=== PATIENT | female | born 1960 | race Caucasian/White ===

== ENCOUNTER 2021-03-26 20:59 | Emergency (ER) | payer OTHER, SELFPAY ==
[2021-03-26 21:59] VITALS: BP 187/68; PULSE 89; RESP 16; TEMP 37.3; O2SAT 97; BMI 42.0
--- NOTE | 2021-03-27 01:03 | ED.HEATRA ---
HPI - Head Injury General Chief complaint: Head Injury Stated complaint: Fall Time Seen by Provider: 03/27/21 00:44 Source: patient Mode of arrival: ambulatory History of Present Illness HPI Narrative: Patient states that tipped over in her chair striking her head against the wall but denies any LOC or use of blood thinners. She denies any numbness or tingling in bilateral upper extremities denies any dizziness or headache and states that she is having some left-sided trapezius pain. Treated with combination analgesics with good resolution of pain and will be discharged. Related Data Allergies Allergy/AdvReac Type Severity Reaction Status Date / Time Penicillins [PCN] Allergy Hives Verified 03/26/21 21:56 codeine AdvReac Nausea Verified 03/26/21 21:56 metformin AdvReac Unknown Verified 03/26/21 21:56 [facility] Past Medical History Medical History (Updated 03/27/21 @ 02:11 by Amanda Pugh MD) Diabetes Renal insufficiency Social History Social History Advance Directives: No Advance Directives Information Provided: Yes Physical Exam Vital Signs: Vital Signs: Last Vital Signs Temp 99.2 F 03/26/21 21:59 Pulse 89 03/26/21 21:59 Resp 16 03/26/21 21:59 BP 187/68 H 03/26/21 21:59 Pulse Ox 97 03/26/21 21:59 Body Mass Index 42.0 Discharge Plan Discharge Clinical Impression: Fall Patient Disposition: Home, Self-Care Instructions: Fall Prevention (ED) Additional Instructions: 1. Resume all home medications as prescribed. 2. Tylenol 1000 mg, orally, every 6 hours as needed for pain control. Do not exceed 4000 mg within 24 hours. This medication may be taken with your at home prescription of ibuprofen 800 mg. 3. Lidocaine patch, these are available in every [facility] and should be apply to area of maximal pain as directed on the outside packaging. Do not hesitate to return to the emergency room for any acute worsening of symptoms. Referrals: Kizzy Lizarraga MD [Primary Care Provider] - 2 days
[2021-03-27] MEDS: Acetaminophen 325 MG TABLET 975 MG PO (01:16)
[2021-03-27] MEDS: Ibuprofen 400 MG TABLET PO (01:16)
[2021-03-27] MEDS: Lidocaine 4 % Patch ADH..PATCH 1 PATCH TRANSDERMA (01:16)
== END 2021-03-27 02:22 | disposition home or self-care (01) ==
PROVIDERS: Emergency Provider Student in an Organized Health Care Education/Training Program; PCP Family Medicine
DX: S09.90XA Unspecified injury of head, initial encounter (principal); G44.309 Post-traumatic headache, unspecified, not intractable; W01.10XA Fall on same level from slipping, tripping and stumbling with subsequent striking against unspecified object, initial encounter; Y93.9 Activity, unspecified; Y92.009 Unspecified place in unspecified non-institutional (private) residence as the place of occurrence of the external cause; Y99.9 Unspecified external cause status
CPT/HCPCS: 99283

== ENCOUNTER 2022-12-07 | Outpatient (REF) | payer OTHER, SELFPAY ==
--- NOTE | ~2022-12-07 | CT_ITS ---
EXAMINATION: CT ABDOMEN AND PELVIS WITHOUT CONTRAST CLINICAL INFORMATION: Calculus of kidney. Pain right side COMPARISON: None TECHNIQUE: Multidetector volumetric imaging was performed from the superior aspect of the liver through the pubic symphysis. Sagittal and coronal reformatted images were obtained on the technologist's workstation. This CT examination was performed using dose optimization techniques as appropriate, variously including the following: *Automated exposure control *Adjustment of mA and/or kV according to patient size (this includes techniques or standardized protocols for targeted exams where dose is matched to indication/reason for exam; i.e. extremities or head) *Use of iterative reconstruction technique DLP: 734 mGy-cm FINDINGS: LUNG BASES: The lung bases are clear. Heart size is normal. LIVER, GALLBLADDER, AND BILIARY TREE: The liver is normal in size, shape, and attenuation. No focal hepatic lesion or biliary ductal dilatation is present. The gallbladder is unremarkable with no evidence of radiopaque gallstones, gallbladder wall thickening, or obvious pericholecystic inflammatory changes. PANCREAS: Unremarkable. SPLEEN: Unremarkable. ADRENAL GLANDS: There is a 2.3 by by 1.6 x 2.1 cm right adrenal lesion measuring 50 Hounsfield units not a benign adenoma. The left adrenal gland is slightly enlarged.. KIDNEYS AND URETERS: There is 1.1 cm right UPJ obstructive radiopaque calculi with moderate right hydronephrosis and perinephric stranding. No additional radiopaque calculi seen. The right kidneys enlarged compared to left and measures 13.7 cm in length left kidney measures 13 cm in length. BLADDER: The bladder is nondistended. GASTROINTESTINAL TRACT: Scattered stool, diverticuli and gas is seen in the colon without significant distention. The small bowel loops are normal caliber. Appendix is normal caliber. No inflammatory process seen in the abdomen. ABDOMINAL WALL: No significant hernia is appreciated. LYMPH NODES: Normal. VASCULAR: There is atherosclerotic calcification of abdominal aorta without aneurysmal dilatation. PELVIC VISCERA: The uterus is anteverted and appears unremarkable. There are scattered phleboliths seen in the pelvis. OSSEOUS STRUCTURES: Unremarkable. CT/CT abdomen pelvis wo IV con IMPRESSION: 1. 1.1 cm right UPJ radiopaque calculi with moderate right hydronephrosis and perinephric stranding. 2. Mild constipation. Colonic diverticulosis without diverticulitis. 3. There is a 2.3 x1.6 x 2.1 cm right adrenal lesion measuring 15 Hounsfield units not a benign adenoma.. Recommend CT adrenal protocol for further evaluation Fleischner guidelines were followed.
== END 2022-12-07 00:01 ==
LOC: HO.CT
PROVIDERS: PCP Family Medicine; Visit Provider Family Medicine
DX: N20.0 Calculus of kidney (principal)
CPT/HCPCS: 74176

== ENCOUNTER 2022-12-08 19:40 | Inpatient (IN) | payer OTHER, SELFPAY ==
--- NOTE | ~2022-12-08 | FL_ITS ---
EXAMINATION: XR FLUOROSCOPY WITH IMAGES CLINICAL INFORMATION: Cystoscopy and stent placement COMPARISON: CT abdomen pelvis on 12/07/2022 TECHNIQUE: Fluoroscopy Supervised By: Dr. Wale Gabriel. Fluoroscopy Time: 55 seconds. Cumulative Dose: 40.31 mGy. Images: 1. FINDINGS: Fluoroscopy performed during right retrograde ureterogram and stent placement FL/FL guidance in OR IMPRESSION: Fluoroscopy performed by the urology department. Please see operative report for additional information.
--- NOTE | ~2022-12-08 | XR_ITS ---
EXAMINATION: XR CHEST CLINICAL INFORMATION: Chest pain COMPARISON: None TECHNIQUE: Frontal view of the chest was obtained. FINDINGS: No significant abnormality is noted involving the heart, lungs, mediastinum, bony thorax or soft tissues. XR/XR chest 1V IMPRESSION: Unremarkable examination.
[2022-12-08 19:58] VITALS: BP 149/60; PULSE 106; RESP 20; TEMP 36.8; O2SAT 93; BMI 40.3
[2022-12-08 21:02] LABS: Basophils Percent Auto 0.2 % (0-2); Hematocrit 39.9 % (37.0-47.0); Imm Gran Abs Auto 0.15 X10*3/uL (0.00-0.03); Imm Gran Pct Auto 0.7 % (0.0-0.4); Lymphocytes Absolute Auto 0.5 X10*3/uL (1.2-4.9); Lymphocytes Percent Auto 2.2 % (20-40); MANUAL DIFF FLAG SCAN; Mean Corpuscular HGB Conc 32.6 g/dl (31.0-35.0); Mean Corpuscular Hemoglobin 27.4 pg (27.0-33.0); Mean Corpuscular Volume 84.2 fL (80.0-98.0); Mean Platelet Volume 9.1 fL (9.4-12.3); Monocytes Absolute Auto 1.3 X10*3/uL (0.1-1.2); Monocytes Percent Auto 6.2 % (2-11); Neutrophils Absolute Auto 19.4 x10*3/uL (2.0-8.3); Neutrophils Percent Auto 90.7 % (45-73); Platelet Count 231 X10*3/uL (160-400); Red Blood Count 4.74 X10*6/uL (4.20-5.50); Red Cell Distribution Width 13.4 % (11.0-16.0); SCAN SMEAR FLAG 1; White Blood Count 21.4 X10*3/uL (4.8-10.8)
[2022-12-08 21:24] LABS: SLIDE REVIEW VERIFIED
[2022-12-08 21:45] LABS: Anion Gap 15 (12-20); Blood Urea Nitrogen 33 mg/dL (9-16); Calcium 8.9 mg/dL (8.4-10.2); Carbon Dioxide 23 mmol/L (22-29); Chloride 102 mmol/L (96-108); Creatinine Clr Calc Pharmacy 58.8; Estimated Glomerular Filt Rate 48; Glucose Random 236 mg/dL (60-115); Potassium 3.6 mmol/L (3.3-5.1); Sodium 136 mmol/L (135-145)
[2022-12-08 22:00] VITALS: O2SAT 89
[2022-12-08 22:44] LABS: Appearance Urine Turbid; Color Urine Yellow; Glucose Urine UA 100 mg/dL (Negative); Leukocyte Esterase Urine Large (3+) (Negative); Nitrite Urine Negative (Negative); PH 6.5 (5.0-9.0); UMIC TRIGGER UACC YES; Urine Blood Moderate (2+) (Negative); Urine Ketones 40 mg/dL (Negative); Urine Protein 300 (3+) mg/dL (Neg-Trace)
--- NOTE | 2022-12-08 22:44 | PC.NURSE ---
pt c/o n/v and abd pain pt states she has been sick since Monday She went to the Dr yesterday and got a CT, but does not know what the results are CT result is in system pt states she is ED today because she can't take it anymore IV line 22g on L forearem est pt has vomited since arriving to room pt tearful, rates pain 08/15
--- NOTE | 2022-12-08 22:46 | PC.NURSE ---
pt has male visitor at bedside
--- NOTE | 2022-12-08 22:49 | ED_ITS ---
HPI - Abdominal Pain General Chief Complaint: Abdominal Pain Stated Complaint: kidney stone Time Seen by Provider: 12/08/22 22:37 Source: patient Mode of arrival: ambulatory Limitations: no limitations History of Present Illness HPI narrative: rt flank pain,vomiting ,unable to keep anything down MD elicited complaint: flank pain (rt) Pertinent past history: other (kidney stone) Onset (ago): day(s) (2) Pain Consistency: constant Location: R flank Severity: moderate Radiation: none Related Data Allergies Allergy/AdvReac Type Severity Reaction Status Date / Time Penicillins [PCN] Allergy Hives Verified 12/08/22 20:03 codeine AdvReac Nausea Verified 12/08/22 20:03 metformin AdvReac Unknown Verified 12/08/22 20:03 Review of Systems Constitutional: Reports no additional constitutional complaints Cardiovascular: Reports no additional cardiovascular complaints COUNT INCLUDES [facility] Past Medical History COUNT INCLUDES THE [facility] Narrative: kidney stone Medical History (Updated 12/08/22 @ 23:43 by Jenise Bolaños MD) Diabetes Renal insufficiency Social History Social History Advance Directives: No Advance Directives Information Provided: No Physical Exam ED Vital Signs: Vital Signs - 24 hr 12/08/22 19:58 12/08/22 22:00 Temperature 98.3 F Pulse Rate 106 H Respiratory Rate 20 Blood Pressure 149/60 H Pulse Oximetry 93 89 L Oxygen Delivery Method Room Air Room Air BMI result Body Mass Index 40.3 Const General: cooperative Nutritional Appearance: average body habitus Orientation/consciousness: patient oriented x3 Limitations: no limitations HENMT Head: Yes normal to inspection General nose exam: Normal external nose present Face and sinus: Yes normal facial exam Throat: Yes posterior oropharynx normal Neck Neck: Yes normal visual inspection and Yes full ROM Chest Chest palpation & inspection: normal inspection of the chest Resp Effort & Inspection: normal respiratory effort Auscultation: clear to auscultation bilaterally Cardio Rate: regular rate Rhythm: regular rhythm GI Inspection: Yes normal to inspection Palpation (GI): Soft to palpation and Tenderness to palpation present (GI) (rt flank tenderness) Auscultation: normal bowel sounds Skin General skin exam: no rashes or lesions noted Neuro General: patient oriented x3 Extrem General: Yes normal to inspection, Yes full ROM and Yes capillary refill normal Course Reevaluation(s) Reevaluation #1: doing better remain afebrile and normotensive ,I spoke with Dr Ortiz Urologist,discussed ct via tiger text Time: 23:45 Medical Decision Making Medical Decision Making [facility] Narrative: Presented with rt flank pain,ct done Yesterday large stone,Rt urether Differential Diagnosis Differential Diagnoses: The differential diagnosis associated with the presentation includes kidney stone,rt flank pain Admission/Observation Consideration of admission/observation: Escalation of care including admission/observation considered Consult Healthcare Provider Management of the patient was discussed with: Hospitalist and Shoe Cutter spoke with Dr ortiz and Dr Bolaños Lab Data [facility] Lab Attestation statement: I reviewed the patient's lab results. 12/08/22 20:56 12/08/22 20:56 Labs: Lab Results 12/08/22 12/08/22 12/08/22 Range/Units 20:56 20:56 22:27 WBC 21.4 H (4.8-10.8) X10*3/uL RBC 4.74 (4.20-5.50) X10*6/uL Hgb 13.0 (12.0-16.0) g/dl Hct 39.9 (37.0-47.0) % MCV 84.2 (80.0-98.0) fL MCH 27.4 (27.0-33.0) pg MCHC 32.6 (31.0-35.0) g/dl RDW 13.4 (11.0-16.0) % Plt Count 231 (160-400) X10*3/uL MPV 9.1 L (9.4-12.3) fL Immature Gran % (Auto) 0.7 H (0.0-0.4) % Neut % (Auto) 90.7 H (45-73) % Lymph % (Auto) 2.2 L (20-40) % [place] % (Auto) 6.2 (2-11) % Eos % (Auto) 0.0 (0-4) % Baso % (Auto) 0.2 (0-2) % Lymph # (Auto) 0.5 L (1.2-4.9) X10*3/uL [place] # (Auto) 1.3 H (0.1-1.2) X10*3/uL Eos # (Auto) 0.0 (0.0-0.4) X10*3/uL Baso # (Auto) 0.0 (0.0-0.2) X10*3/uL Abs Immat Gran (auto) 0.15 H (0.00-0.03) X10*3/uL Absolute Neuts (auto) 19.4 H (2.0-8.3) x10*3/uL Absolute Nucleated RBC 0.000 (0.0-0.012) X10*3/uL Nucleated RBC % (auto) 0.0 (0.0-0.2) /100WBC Smear Tech's Comments VERIFIED Sodium 136 (135-145) mmol/L Potassium 3.6 (3.3-5.1) mmol/L Chloride 102 (96-108) mmol/L Carbon Dioxide 23 (22-29) mmol/L Anion Gap 15 (12-20) BUN 33 H (9-16) mg/dL Creatinine 1.15 (0.5-1.4) mg/dL Estim Creat Clear Calc 58.8 Estimated GFR 48 Random Glucose 236 H (60-115) mg/dL Calcium 8.9 (8.4-10.2) mg/dL Urine Color Yellow Urine Appearance Turbid Urine pH 6.5 (5.0-9.0) Ur Specific [place] 1.020 (1.005-1.025) Urine Protein 300 (3+) H (Neg-Trace) mg/dL Urine Glucose (UA) 100 H (Negative) mg/dL Urine Ketones 40 (Negative) mg/dL Urine Blood Moderate (2+) H (Negative) Urine Nitrite Negative (Negative) Ur Leukocyte Esterase Large (3+) H (Negative) Urine RBC 11-20 H (0-2) /HPF Urine WBC >50 H (0-5) /HPF Ur Squamous Epith Cells 3-5 (0-2) /HPF Urine Bacteria 4+ (None Seen) Hyaline Casts 3-5 (0-2) /LPF Radiology Impression Discussion of test interpretation with radiology: I have reviewed the radiologist's reading. Radiologist Impression: scan done YEsterday Prescription Management I considered prescription management with: Pain Medication Medications Administered Discontinued Medications Generic Name Dose Route Start Last Admin Trade Name Freq PRN Reason Stop Dose Admin Sodium Chloride 1,000 mls @ 999 mls/hr 12/08/22 22:45 12/08/22 22:58 Ns IVCONT 12/08/22 23:45 999 mls/hr .Q1H1M NIGEL Administration Sodium Chloride 1,000 mls @ 999 mls/hr 12/08/22 22:45 12/08/22 22:58 Ns IVCONT 12/08/22 23:45 999 mls/hr .Q1H1M NIGEL Administration Ketorolac Tromethamine 30 mg 12/08/22 22:45 12/08/22 22:57 Ketorolac Tromethamine 30 Mg/Ml Vial IVPUSH 12/08/22 22:46 30 mg ONCE ONE Administration Ondansetron HCl 4 mg 12/08/22 22:48 12/08/22 23:09 Ondansetron Hcl 4 Mg/2 Ml Vial IVPUSH 12/08/22 22:49 4 mg ONCE ONE Administration Discharge Plan Discharge Clinical Impression: Kidney stone on right side Patient Disposition: Admitted As Inpatient
[2022-12-08 22:52] LABS: Bacteria Urine 4+ (None Seen); UACC Culture Trigger YES; WBC Urine >50 /HPF (0-5)
[2022-12-08] MEDS: Ketorolac Tromethamine 30 MG/ML VIAL IVPUSH (22:57)
[2022-12-08] MEDS: 0.9 % Sodium Chloride 1,000 ML 999 ML IVCONT ×2 (22:58)
[2022-12-08] MEDS: ondansetron HCL 4 MG/2 ML VIAL IVPUSH (23:09)
--- NOTE | 2022-12-08 23:35 | PC.NURSE ---
pt desats to 89% on RA; pt placed on 2L O2 NC now at 94%; provider aware
--- NOTE | 2022-12-08 23:41 | P.HPHOSP_ITS ---
History of Present Illness Date of Service: 12/08/22 Chief Complaint: Abdominal Pain This is a 62-year-old female with pertinent history of fsc-vjgctms-ubbtqqcxh diabetes mellitus, chronic kidney disease who presents to the emergency department for evaluation of abdominal pain. Patient states she started having right-sided abdominal pain about 2 days prior to presentation. Initially pain was intermittent and then became constant. Intermittent radiation to the back and groin. It was associated with chills, nausea and multiple episodes of nonbloody emesis. She does have a history of kidney stones but states this is the worst pain she has ever experienced. Denies chest discomfort, palpitations, shortness of breath, changes in bowel habits In the emergency department, imaging with right-sided hydronephrosis and 1.1 cm UPJ calculus Review of Systems 2 Constitutional: Constitutional: Reports chills Cardiovascular: Cardiovascular: Reports no additional cardiovascular complaints Respiratory: Respiratory: Reports no additional respiratory complaints Gastrointestinal: Gastrointestinal: Reports abdominal pain, Reports nausea and Reports vomiting PMFSH Medical History Diabetes Renal insufficiency Pertinent family history: No family history of CAD Social History Advance Directives: No Advance Directives Information Provided: No Meds Allergies Allergy/AdvReac Type Severity Reaction Status Date / Time Penicillins [PCN] Allergy Hives Verified 12/08/22 20:03 codeine AdvReac Nausea Verified 12/08/22 20:03 metformin AdvReac Unknown Verified 12/08/22 20:03 Active Medications: Current Medications Sodium Chloride (Ns) 1,000 mls @ 999 mls/hr IVCONT .Q1H1M [facility] Stop: 12/08/22 23:45 Last Admin: 12/08/22 22:58 Dose: 999 mls/hr Sodium Chloride (Ns) 1,000 mls @ 999 mls/hr IVCONT .Q1H1M [facility] Stop: 12/08/22 23:45 Last Admin: 12/08/22 22:58 Dose: 999 mls/hr Ceftriaxone Sodium 1 gm/ (Sodium Chloride) 50 mls @ 100 mls/hr IV Q24H [facility] Pharmacy Consult (Consult Rx Perform Med Rec) 1 each MISCELLANE ONCE PRN PRN Reason: Consult order Physical Exam Vital Signs and Narrative: Vital Signs: Last Vital Signs Temp 98.3 F 12/08/22 19:58 Pulse 106 H 12/08/22 19:58 Resp 20 12/08/22 19:58 BP 149/60 H 12/08/22 19:58 Pulse Ox 89 L 12/08/22 22:00 O2 Del Method 12/08/22 22:00 BMI result Body Mass Index 40.3 Middle-aged female lying in bed in mild distress Neck supple, no JVD Tachycardic with regular rhythm, S1-S2 heard Regular breath sounds bilaterally, no wheezing or crackles appreciated Abdomen with right CVA tenderness, no guarding, no rebound tenderness, no rigidity Patient is awake, alert and oriented to self, place, time and person ; no focal motor deficit Psych: Normal mood No pedal edema Results Labs 12/08/22 20:56 12/08/22 20:56 Labs: Laboratory Results - last 24 hr 12/08/22 12/08/22 12/08/22 20:56 20:56 22:27 MCV 84.2 MCH 27.4 MCHC 32.6 RDW 13.4 Plt Count 231 MPV 9.1 L Immature Gran % (Auto) 0.7 H Neut % (Auto) 90.7 H Lymph % (Auto) 2.2 L [place] % (Auto) 6.2 Eos % (Auto) 0.0 Baso % (Auto) 0.2 Lymph # (Auto) 0.5 L [place] # (Auto) 1.3 H Eos # (Auto) 0.0 Baso # (Auto) 0.0 Abs Immat Gran (auto) 0.15 H Absolute Neuts (auto) 19.4 H Absolute Nucleated RBC 0.000 Nucleated RBC % (auto) 0.0 Smear Tech's Comments VERIFIED Anion Gap 15 Estim Creat Clear Calc 58.8 Estimated GFR 48 Random Glucose 236 H Calcium 8.9 Urine Color Yellow Urine Appearance Turbid Urine pH 6.5 Ur Specific [place] 1.020 Urine Protein 300 (3+) H Urine Glucose (UA) 100 H Urine Ketones 40 Urine Blood Moderate (2+) H Urine Nitrite Negative Ur Leukocyte Esterase Large (3+) H Urine RBC 11-20 H Urine WBC >50 H Ur Squamous Epith Cells 3-5 Urine Bacteria 4+ Hyaline Casts 3-5 Assessment and Plan (1) Hydronephrosis: Status: Acute (2) Renal calculi: Status: Acute Plan This is a 62-year-old female with pertinent history of nau-xrkheio-ymflkfdzt diabetes mellitus, chronic kidney disease who presents to the emergency department for evaluation of abdominal pain. #. Right-sided hydronephrosis due to right UPJ calculus: Will admit for pain control with IV morphine p.r.n. Resuscitated with IV crystalloids. Dr. Gabriel, urology was consulted from the ER, appreciate assistance. Will keep patient CHUCKER O. IV Zofran p.r.n. #. Sepsis due to clinical pyelonephritis in the setting of above: Resuscitated with IV crystalloids in the ER. Lactic acid and blood cultures obtained. Initiating empiric IV Rocephin #. Kmd-xuluorc-tecnvmvdx diabetes mellitus with hyperglycemia: Initiate Accu- Cheks with sliding scale insulin every 6 hours. #. Chronic kidney disease: At baseline. Monitor urine output and creatinine with fluid resuscitation. Avoid nephrotoxins. Med rec pending DVT prophylaxis: Mechanical Full code NPO Will admit as inpatient for likely urology procedure. Specialist consult pending. Time Spent With Patient Time: Total time managing care of this patient today ____ minutes. Quality Stroke Does the patient have a stroke diagnosis?: No VTE Prior VTE?: No VTE Risk Level:: Medical - moderate - high VTE Device Contraindication: N/A - Device Ordered VTE Drug Contraindication: Treatment Not Indicated
[2022-12-09] VITALS (14 sets, daily range): BP systolic 126–165; BP diastolic 52–98; PULSE 112–132; RESP 17–32; TEMP 36.8–37.9; O2SAT 91–99
[2022-12-09] MEDS: Morphine Sulfate 4 MG/ML CARTRIDGE IVPUSH (00:18)
[2022-12-09] MEDS: 0.9 % Sodium Chloride Flush 3 ML SYRINGE IVFLUSH ×3 (00:21→20:11)
[2022-12-09] MEDS: cefTRIAXone sodium 1 GM in 0.9 % Sodium Chloride 50 ML IV ×2 (00:31→23:54)
--- NOTE | 2022-12-09 00:47 | PC.NURSE ---
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 Informed Dr Bolaños via [employer] that she also takes Januvia. Dr Bolaños stated we do not have Januvia and because she is NPO she would need to be on a sliding scale provider aware that pt refused insulin via [employer]
--- NOTE | 2022-12-09 00:57 | PC.NURSE ---
Jbph[facility] text to Dr Bolaños two orders for ceftriaxone. Per Dr Bolaños just 1g; 2nd one is a duplicate order
[2022-12-09 01:30] LABS: Lactic Acid 1.4 mmol/L (0.5-2.0)
[2022-12-09 04:41] LABS: MANUAL DIFF FLAG NO
[2022-12-09 04:41] LABS: COVID-19 Test Negative (Negative); IDNOW Serial# 6674DD1D
[2022-12-09 04:42] LABS: Basophils Absolute Auto 0.1 X10*3/uL (0.0-0.2); Basophils Percent Auto 0.3 % (0-2); Eosinophils Absolute Auto 0.5 X10*3/uL (0.0-0.4); Hematocrit 36.7 % (37.0-47.0); Hemoglobin 12.1 g/dl (12.0-16.0); Imm Gran Pct Auto 1.2 % (0.0-0.4); Lymphocytes Absolute Auto 0.5 X10*3/uL (1.2-4.9); Lymphocytes Percent Auto 3.2 % (20-40); Mean Corpuscular Hemoglobin 28.1 pg (27.0-33.0); Mean Corpuscular Volume 85.3 fL (80.0-98.0); Mean Platelet Volume 9.6 fL (9.4-12.3); Monocytes Absolute Auto 1.1 X10*3/uL (0.1-1.2); Monocytes Percent Auto 6.6 % (2-11); Neutrophils Absolute Auto 14.1 x10*3/uL (2.0-8.3); Neutrophils Percent Auto 85.7 % (45-73); Platelet Count 207 X10*3/uL (160-400); Red Cell Distribution Width 13.6 % (11.0-16.0); White Blood Count 16.5 X10*3/uL (4.8-10.8)
[2022-12-09 05:01] LABS: Anion Gap 16 (12-20); Blood Urea Nitrogen 32 mg/dL (9-16); Carbon Dioxide 17 mmol/L (22-29); Chloride 108 mmol/L (96-108); Creatinine Clr Calc Pharmacy 81.5; Estimated Glomerular Filt Rate > 60; Glucose Random 224 mg/dL (60-115); Potassium 3.7 mmol/L (3.3-5.1); Sodium 137 mmol/L (135-145)
[2022-12-09 07:11] LABS: Glucose, Whole Blood 208 mg/dL (60-115)
--- NOTE | 2022-12-09 08:25 | PHA.MEDREC ---
Pharmacy Consult ? Medication Reconciliation Pharmacy has completed the medication reconciliation. Spoke with patient in the ED. patient had a med list on her phone. She takes most of her medications at night. Pt reports last taking her medications on 12/06/22
[2022-12-09] MEDS: Cyanocobalamin (Vitamin B-12) 1,000 MCG TABLET 1000 MCG PO (09:21)
--- NOTE | 2022-12-09 10:24 | PC.NURSE ---
patient arrived from ED on stretcher with transport. transferred to hospital bed. call [facility] within reach.
[2022-12-09 11:46] LABS: Glucose, Whole Blood 244 mg/dL (60-115)
[2022-12-09 12:03] LABS: Glucose, Whole Blood 230 mg/dL (60-115)
--- NOTE | 2022-12-09 12:15 | PC.NURSE ---
pt refused insulin. states it will ruin my home regimen . educated on diabetes control
--- NOTE | 2022-12-09 12:35 | P.PNIM_ITS ---
Subjective Subjective Date of Service: 12/09/22 Interval History: cc: abd pain interval history:still with pain Physical Exam Vital Signs: Vital Signs: Last Vital Signs Temp 98.3 F 12/09/22 06:27 Pulse 116 H 12/09/22 10:05 Resp 18 12/09/22 10:05 BP 145/63 H 12/09/22 10:05 Pulse Ox 97 12/09/22 10:05 O2 Del Method 12/09/22 10:05 O2 Flow Rate 2 12/09/22 10:05 BMI result Body Mass Index 40.3 General: AO X 3, in pain Resp: CTA bilateral, no accessory muscles used CVS: S1,S2,RRR GI: soft, non tender, non distended Neuro: motor grossly intact, alert Psych: appropriate affect, appropriate insight Objective Data Active Medications Acetaminophen (Acetaminophen 325 Mg Tablet) 650 mg PO Q6H PRN PRN Reason: Pain, Mild (Pain Scale 1-3) Cyanocobalamin (Cyanocobalamin (Vitamin B-12) 1,000 Mcg Tablet) 1,000 mcg PO DAILY COUNT INCLUDES [facility] Last Admin: 12/09/22 09:21 Dose: 1,000 mcg Documented By: MELVINA Dextrose (Dextrose 50 % 25 Gm/50 Ml Syringe) 25 gm IVPUSH Q15M PRN; Protocol PRN Reason: per Hypoglycemia Standing Ord. Glucose (Glucose Gel 15 Gm Gel..Gram.) 15 gm PO Q15M PRN; Protocol PRN Reason: per Hypoglycemia Standing Ord. Ceftriaxone Sodium 1 gm/ (Sodium Chloride) 50 mls @ 100 mls/hr IV Q24H COUNT INCLUDES THE [facility] Last Admin: 12/09/22 00:57 Dose: Not Given Documented By: OSMIN Non-Admin Reason: Duplicate Order Insulin Human Lispro (Insulin Lispro 100 Unit/Ml 3 Ml Vial) 0 unit SUBCUT Q6H NIGEL; Protocol Last Admin: 12/09/22 12:14 Dose: Not Given Documented By: AR Non-Admin Reason: Patient Refused Losartan Potassium (Losartan Potassium 25 Mg Tablet) 25 mg PO BEDTIME NIGEL; Protocol Melatonin (Melatonin 3 Mg Tablet) 6 mg PO BEDTIME PRN PRN Reason: Insomnia Morphine Sulfate (Morphine Sulfate 4 Mg/Ml Cartridge) 4 mg IVPUSH Q4H PRN; Protocol PRN Reason: Pain, Severe (Pain Scale 7-10) Ondansetron HCl (Ondansetron Hcl 4 Mg/2 Ml Vial) 4 mg IVPUSH Q8H PRN PRN Reason: Nausea and Vomiting Pharmacy Consult (Consult Rx Perform Med Rec) 1 each MISCELLANE ONCE PRN PRN Reason: Consult order Sitagliptin Phosphate (Sitagliptin Phosphate 100 Mg Tablet) 100 mg PO BEDTIME NIGEL Sodium Chloride (0.9 % Sodium Chloride Flush 3 Ml Syringe) 3 ml IVFLUSH QSHIFT NIGEL Last Admin: 12/09/22 09:31 Dose: 3 ml Documented By: LUCÍACL Labs 12/09/22 04:37 12/09/22 04:37 Labs: Laboratory Results - last 24 hr 12/08/22 12/08/22 12/08/22 20:56 20:56 22:27 MCV 84.2 MCH 27.4 MCHC 32.6 RDW 13.4 Plt Count 231 MPV 9.1 L Immature Gran % (Auto) 0.7 H Neut % (Auto) 90.7 H Lymph % (Auto) 2.2 L [place] % (Auto) 6.2 Eos % (Auto) 0.0 Baso % (Auto) 0.2 Lymph # (Auto) 0.5 L [place] # (Auto) 1.3 H Eos # (Auto) 0.0 Baso # (Auto) 0.0 Abs Immat Gran (auto) 0.15 H Absolute Neuts (auto) 19.4 H Absolute Nucleated RBC 0.000 Nucleated RBC % (auto) 0.0 Smear Tech's Comments VERIFIED Anion Gap 15 Estim Creat Clear Calc 58.8 Estimated GFR 48 POC Glucose Random Glucose 236 H Lactic Acid Calcium 8.9 Urine Color Yellow Urine Appearance Turbid Urine pH 6.5 Ur Specific [place] 1.020 Urine Protein 300 (3+) H Urine Glucose (UA) 100 H Urine Ketones 40 Urine Blood Moderate (2+) H Urine Nitrite Negative Ur Leukocyte Esterase Large (3+) H Urine RBC 11-20 H Urine WBC >50 H Ur Squamous Epith Cells 3-5 Urine Bacteria 4+ Hyaline Casts 3-5 COVID-19 ([facility]) COVID-19 Clin Com 12/09/22 12/09/22 12/09/22 01:04 04:22 04:37 MCV 85.3 MCH 28.1 MCHC 33.0 RDW 13.6 Plt Count 207 MPV 9.6 Immature Gran % (Auto) 1.2 H Neut % (Auto) 85.7 H Lymph % (Auto) 3.2 L [place] % (Auto) 6.6 Eos % (Auto) 3.0 Baso % (Auto) 0.3 Lymph # (Auto) 0.5 L [place] # (Auto) 1.1 Eos # (Auto) 0.5 H Baso # (Auto) 0.1 Abs Immat Gran (auto) 0.20 H Absolute Neuts (auto) 14.1 H Absolute Nucleated RBC 0.000 Nucleated RBC % (auto) 0.0 Smear Tech's Comments Anion Gap Estim Creat Clear Calc Estimated GFR POC Glucose Random Glucose Lactic Acid 1.4 Calcium Urine Color Urine Appearance Urine pH Ur Specific [place] Urine Protein Urine Glucose (UA) Urine Ketones Urine Blood Urine Nitrite Ur Leukocyte Esterase Urine RBC Urine WBC Ur Squamous Epith Cells Urine Bacteria Hyaline Casts COVID-19 ([facility]) Negative COVID-19 Clin Com See Note 12/09/22 12/09/22 12/09/22 04:37 07:05 11:42 MCV MCH MCHC RDW Plt Count MPV Immature Gran % (Auto) Neut % (Auto) Lymph % (Auto) [place] % (Auto) Eos % (Auto) Baso % (Auto) Lymph # (Auto) [place] # (Auto) Eos # (Auto) Baso # (Auto) Abs Immat Gran (auto) Absolute Neuts (auto) Absolute Nucleated RBC Nucleated RBC % (auto) Smear Tech's Comments Anion Gap 16 Estim Creat Clear Calc 81.5 Estimated GFR > 60 POC Glucose 208 H 244 H Random Glucose 224 H Lactic Acid Calcium 8.0 L D Urine Color Urine Appearance Urine pH Ur Specific [place] Urine Protein Urine Glucose (UA) Urine Ketones Urine Blood Urine Nitrite Ur Leukocyte Esterase Urine RBC Urine WBC Ur Squamous Epith Cells Urine Bacteria Hyaline Casts COVID-19 ([facility]) COVID-19 Clin Com 12/09/22 12:00 MCV MCH MCHC RDW Plt Count MPV Immature Gran % (Auto) Neut % (Auto) Lymph % (Auto) [place] % (Auto) Eos % (Auto) Baso % (Auto) Lymph # (Auto) [place] # (Auto) Eos # (Auto) Baso # (Auto) Abs Immat Gran (auto) Absolute Neuts (auto) Absolute Nucleated RBC Nucleated RBC % (auto) Smear Tech's Comments Anion Gap Estim Creat Clear Calc Estimated GFR POC Glucose 230 H Random Glucose Lactic Acid Calcium Urine Color Urine Appearance Urine pH Ur Specific [place] Urine Protein Urine Glucose (UA) Urine Ketones Urine Blood Urine Nitrite Ur Leukocyte Esterase Urine RBC Urine WBC Ur Squamous Epith Cells Urine Bacteria Hyaline Casts COVID-19 ([facility]) COVID-19 Clin Com Microbiology Microbiology Results: Microbiology 12/08/22 22:53 Urine Culture - Preliminary Urine clean catch - Urine adamson top Culture too young to evaluate. Assessment and Plan (1) Renal calculi: Status: Acute Plan 62-year-old female with pertinent history of nnv-[id number] diabetes mellitus, morbid obesity, who presented to the emergency department for evaluation of abdominal pain. Right-sided hydronephrosis due to right UPJ calculus complicated by sepsis due to acute pylenoephritis leta dowling, gu to see, pain control DM insulin no evidence of CKD DVT prophylaxis:? lovenox Full code reason for continued hospitalization: awaiting gu procedure Time Spent With Patient Time: Total time managing care of this patient today ____ minutes. Quality Stroke Does the patient have a stroke diagnosis?: No VTE Prior VTE?: No VTE Risk Level:: Medical - moderate - high VTE Device Contraindication: N/A - Device Ordered VTE Drug Contraindication: Treatment Not Indicated
[2022-12-09] MEDS: 0.9 % Sodium Chloride 1,000 ML 75 ML IVCONT ×2 (13:06→21:02)
[2022-12-09] MEDS: ondansetron HCL 4 MG/2 ML VIAL IVPUSH ×3 (13:06→23:48)
--- NOTE | 2022-12-09 13:33 | PC.NURSE ---
nurse to nurse report to short stay
--- NOTE | 2022-12-09 14:29 | HO.ANESPROP2 ---
[facility] Active Problems Active Problems: All Active Problems (Updated 12/09/22 @ 00:18 by Jenise Bolaños MD) Renal calculi (Acute) Hydronephrosis (Acute) Diabetes (Acute) Past Medical History Medical History Diabetes Renal insufficiency Social History Social History Patient Tobacco Use Status: Tobacco use Unknown Advance Directives: No Advance Directives Information Provided: No Nutrition Risks: Acute nausea or vomiting x1 week Meds Allergies Allergy/AdvReac Type Severity Reaction Status Date / Time Penicillins [PCN] Allergy Hives Verified 12/08/22 20:03 codeine AdvReac Nausea Verified 12/08/22 20:03 metformin AdvReac Unknown Verified 12/08/22 20:03 Active Medications: Current Medications Acetaminophen (Acetaminophen 325 Mg Tablet) 650 mg PO Q6H PRN PRN Reason: Pain, Mild (Pain Scale 1-3) Cyanocobalamin (Cyanocobalamin (Vitamin B-12) 1,000 Mcg Tablet) 1,000 mcg PO DAILY [facility] Last Admin: 12/09/22 09:21 Dose: 1,000 mcg Dextrose (Dextrose 50 % 25 Gm/50 Ml Syringe) 25 gm IVPUSH Q15M PRN; Protocol PRN Reason: per Hypoglycemia Standing Ord. Enoxaparin Sodium (Enoxaparin Sodium 40 Mg/0.4 Ml Syringe) 40 mg SUBCUT Q24H NIGEL Glucose (Glucose Gel 15 Gm Gel..Gram.) 15 gm PO Q15M PRN; Protocol PRN Reason: per Hypoglycemia Standing Ord. Ceftriaxone Sodium 1 gm/ (Sodium Chloride) 50 mls @ 100 mls/hr IV Q24H [facility] Last Admin: 12/09/22 00:57 Dose: Not Given Sodium Chloride (Ns) 1,000 mls @ 75 mls/hr IVCONT .[id number] [facility] Last Admin: 12/09/22 13:06 Dose: 75 mls/hr Insulin Human Lispro (Insulin Lispro 100 Unit/Ml 3 Ml Vial) 0 unit SUBCUT Q6H NIGEL; Protocol Last Admin: 12/09/22 12:14 Dose: Not Given Losartan Potassium (Losartan Potassium 25 Mg Tablet) 25 mg PO BEDTIME NIGEL; Protocol Melatonin (Melatonin 3 Mg Tablet) 6 mg PO BEDTIME PRN PRN Reason: Insomnia Morphine Sulfate (Morphine Sulfate 4 Mg/Ml Cartridge) 4 mg IVPUSH Q4H PRN; Protocol PRN Reason: Pain, Severe (Pain Scale 7-10) Ondansetron HCl (Ondansetron Hcl 4 Mg/2 Ml Vial) 4 mg IVPUSH Q8H PRN PRN Reason: Nausea and Vomiting Last Admin: 12/09/22 13:06 Dose: 4 mg Pharmacy Consult (Consult Rx Perform Med Rec) 1 each MISCELLANE ONCE PRN PRN Reason: Consult order Sitagliptin Phosphate (Sitagliptin Phosphate 100 Mg Tablet) 100 mg PO BEDTIME NIGEL Sodium Chloride (0.9 % Sodium Chloride Flush 3 Ml Syringe) 3 ml IVFLUSH QSHIFT NIGEL Last Admin: 12/09/22 09:31 Dose: 3 ml Home Medications Medication Instructions Recorded Confirmed Last Taken Type aspirin 81 mg tablet,delayed 81 mg PO BEDTIME 12/09/22 12/09/22 12/06/22 History release coenzyme Q10 10 mg capsule 10 mg PO BEDTIME 12/09/22 12/09/22 12/06/22 History cyanocobalamin (vitamin B-12) 1,000 mcg PO DAILY 12/09/22 12/09/22 12/06/22 History 1,000 mcg tablet gabapentin 100 mg capsule 1 - 3 cap PO BEDTIME PRN insomnia 12/09/22 12/09/22 12/06/22 History glipizide 5 mg tablet 2 tab PO BIDAC 12/09/22 12/09/22 12/06/22 History ibuprofen 800 mg tablet 1 tab PO TID PRN Pain 12/09/22 12/09/22 12/06/22 History losartan 25 mg tablet 1 tab PO BEDTIME 12/09/22 12/09/22 12/06/22 History melatonin 3 mg tablet 3 mg PO BEDTIME 12/09/22 12/09/22 12/06/22 History sitagliptin phosphate 100 mg 1 tab PO BEDTIME 12/09/22 12/09/22 12/06/22 History tablet (Januvia) Exam Exam Date and Time: December 09, 2022 142 Height,Weight and Vital Signs: Height 5 ft 4 in Weight 106.594 kg Last Vital Signs Temp 99.1 F 12/09/22 14:26 Pulse 125 H 12/09/22 14:26 Resp 18 12/09/22 14:26 BP 165/79 H 12/09/22 14:26 Pulse Ox 96 12/09/22 14:26 O2 Del Method 12/09/22 14:26 O2 Flow Rate 2 12/09/22 14:26 Pertinent Lab Results Pertinent Lab Results: Laboratory Tests 12/08/22 12/08/22 12/08/22 20:56 20:56 22:27 WBC 21.4 H RBC 4.74 Hgb 13.0 Hct 39.9 MCV 84.2 MCH 27.4 MCHC 32.6 RDW 13.4 Plt Count 231 MPV 9.1 L Immature Gran % (Auto) 0.7 H Neut % (Auto) 90.7 H Lymph % (Auto) 2.2 L [place] % (Auto) 6.2 Eos % (Auto) 0.0 Baso % (Auto) 0.2 Lymph # (Auto) 0.5 L [place] # (Auto) 1.3 H Eos # (Auto) 0.0 Baso # (Auto) 0.0 Abs Immat Gran (auto) 0.15 H Absolute Neuts (auto) 19.4 H Absolute Nucleated RBC 0.000 Nucleated RBC % (auto) 0.0 Smear Tech's Comments VERIFIED Sodium 136 Potassium 3.6 Chloride 102 Carbon Dioxide 23 Anion Gap 15 BUN 33 H Creatinine 1.15 Estim Creat Clear Calc 58.8 Estimated GFR 48 POC Glucose Random Glucose 236 H Lactic Acid Calcium 8.9 Urine Color Yellow Urine Appearance Turbid Urine pH 6.5 Ur Specific [place] 1.020 Urine Protein 300 (3+) H Urine Glucose (UA) 100 H Urine Ketones 40 Urine Blood Moderate (2+) H Urine Nitrite Negative Ur Leukocyte Esterase Large (3+) H Urine RBC 11-20 H Urine WBC >50 H Ur Squamous Epith Cells 3-5 Urine Bacteria 4+ Hyaline Casts 3-5 COVID-19 ([facility]) COVID-19 Clin Com 12/09/22 12/09/22 12/09/22 01:04 04:22 04:37 WBC 16.5 H RBC 4.30 Hgb 12.1 Hct 36.7 L MCV 85.3 MCH 28.1 MCHC 33.0 RDW 13.6 Plt Count 207 MPV 9.6 Immature Gran % (Auto) 1.2 H Neut % (Auto) 85.7 H Lymph % (Auto) 3.2 L [place] % (Auto) 6.6 Eos % (Auto) 3.0 Baso % (Auto) 0.3 Lymph # (Auto) 0.5 L [place] # (Auto) 1.1 Eos # (Auto) 0.5 H Baso # (Auto) 0.1 Abs Immat Gran (auto) 0.20 H Absolute Neuts (auto) 14.1 H Absolute Nucleated RBC 0.000 Nucleated RBC % (auto) 0.0 Smear Tech's Comments Sodium Potassium Chloride Carbon Dioxide Anion Gap BUN Creatinine Estim Creat Clear Calc Estimated GFR POC Glucose Random Glucose Lactic Acid 1.4 Calcium Urine Color Urine Appearance Urine pH Ur Specific [place] Urine Protein Urine Glucose (UA) Urine Ketones Urine Blood Urine Nitrite Ur Leukocyte Esterase Urine RBC Urine WBC Ur Squamous Epith Cells Urine Bacteria Hyaline Casts COVID-19 ([facility]) Negative COVID-[employer] Com See Note 12/09/22 12/09/22 12/09/22 04:37 07:05 11:42 WBC RBC Hgb Hct MCV MCH MCHC RDW Plt Count MPV Immature Gran % (Auto) Neut % (Auto) Lymph % (Auto) [place] % (Auto) Eos % (Auto) Baso % (Auto) Lymph # (Auto) [place] # (Auto) Eos # (Auto) Baso # (Auto) Abs Immat Gran (auto) Absolute Neuts (auto) Absolute Nucleated RBC Nucleated RBC % (auto) Smear Tech's Comments Sodium 137 Potassium 3.7 Chloride 108 Carbon Dioxide 17 L Anion Gap 16 BUN 32 H Creatinine 0.83 Estim Creat Clear Calc 81.5 Estimated GFR > 60 POC Glucose 208 H 244 H Random Glucose 224 H Lactic Acid Calcium 8.0 L D Urine Color Urine Appearance Urine pH Ur Specific [place] Urine Protein Urine Glucose (UA) Urine Ketones Urine Blood Urine Nitrite Ur Leukocyte Esterase Urine RBC Urine WBC Ur Squamous Epith Cells Urine Bacteria Hyaline Casts COVID-19 ([facility]) COVID-[place]. com. cn 12/09/22 12:00 WBC RBC Hgb Hct MCV MCH MCHC RDW Plt Count MPV Immature Gran % (Auto) Neut % (Auto) Lymph % (Auto) [place] % (Auto) Eos % (Auto) Baso % (Auto) Lymph # (Auto) [place] # (Auto) Eos # (Auto) Baso # (Auto) Abs Immat Gran (auto) Absolute Neuts (auto) Absolute Nucleated RBC Nucleated RBC % (auto) Smear Tech's Comments Sodium Potassium Chloride Carbon Dioxide Anion Gap BUN Creatinine Estim Creat Clear Calc Estimated GFR POC Glucose 230 H Random Glucose Lactic Acid Calcium Urine Color Urine Appearance Urine pH Ur Specific [place] Urine Protein Urine Glucose (UA) Urine Ketones Urine Blood Urine Nitrite Ur Leukocyte Esterase qqt [id number] RBC Urine WBC Ur Squamous Epith Cells Urine Bacteria Hyaline Casts COVID-19 ([facility]) COVID-19 Clin Com
[2022-12-09 15:49] LABS: Glucose, Whole Blood 199 mg/dL (60-115)
--- NOTE | 2022-12-09 15:57 | PM.UROCN ---
History of Present Illness Consult details Consult date: 12/09/22 Narrative: CC: right proximal ureteric stone Antoinette is a pleasant female Presents with right-sided flank pain and nausea Prior stone but had been able to pass it herself CT scan - proximal right ureteric stone with mild hydroureteronephrosis WBC 16.5, calcium 8.0, creatinine 0.8 Discussed options requires stent Review of Systems Constitutional: Constitutional: Reports as per HPI and Reports no additional constitutional complaints Cardiovascular: Cardiovascular: Reports as per HPI and Reports no additional cardiovascular complaints Respiratory: Respiratory: Reports as per HPI and Reports no additional respiratory complaints Gastrointestinal: Gastrointestinal: Reports as per HPI and Reports no additional gastrointestinal complaints Genitourinary: Genitourinary: Reports as per HPI Musculoskeletal: Musculoskeletal: Reports no additional musculoskeletal complaints and Reports as per HPI Neurologic: Reports system reviewed and no additional complaints, except as documented and Reports as per HPI PMFSH Past Medical History Medical History Diabetes Renal insufficiency Social History Social History Patient Tobacco Use Status: Never used Tobacco Use of substances other than those prescribed or required for medical reasons: No Are you DNR?: No Advance Directives: No Advance Directives Information Provided: No Nutrition Risks: Acute nausea or vomiting x1 week Meds Allergies Allergy/AdvReac Type Severity Reaction Status Date / Time Penicillins [PCN] Allergy Hives Verified 12/08/22 20:03 codeine AdvReac Nausea Verified 12/08/22 20:03 metformin AdvReac Unknown Verified 12/08/22 20:03 Active Medications: Current Medications Acetaminophen (Acetaminophen 325 Mg Tablet) 650 mg PO Q6H PRN PRN Reason: Pain, Mild (Pain Scale 1-3) Cyanocobalamin (Cyanocobalamin (Vitamin B-12) 1,000 Mcg Tablet) 1,000 mcg PO DAILY [facility] Last Admin: 12/09/22 09:21 Dose: 1,000 mcg Dextrose (Dextrose 50 % 25 Gm/50 Ml Syringe) 25 gm IVPUSH Q15M PRN; Protocol PRN Reason: per Hypoglycemia Standing Ord. Enoxaparin Sodium (Enoxaparin Sodium 40 Mg/0.4 Ml Syringe) 40 mg SUBCUT Q24H [facility] Glucose (Glucose Gel 15 Gm Gel..Gram.) 15 gm PO Q15M PRN; Protocol PRN Reason: per Hypoglycemia Standing Ord. Ceftriaxone Sodium 1 gm/ (Sodium Chloride) 50 mls @ 100 mls/hr IV Q24H [facility] Last Admin: 12/09/22 00:57 Dose: Not Given Sodium Chloride (Ns) 1,000 mls @ 75 mls/hr IVCONT .[id number] [facility] Last Admin: 12/09/22 13:06 Dose: 75 mls/hr Sodium Chloride (Ns) 1,000 mls @ 100 mls/hr IVCONT .Q10H [facility] Insulin Human Lispro (Insulin Lispro 100 Unit/Ml 3 Ml Vial) 0 unit SUBCUT Q6H [facility]; Protocol Last Admin: 12/09/22 12:14 Dose: Not Given Losartan Potassium (Losartan Potassium 25 Mg Tablet) 25 mg PO BEDTIME NIGEL; Protocol Melatonin (Melatonin 3 Mg Tablet) 6 mg PO BEDTIME PRN PRN Reason: Insomnia Morphine Sulfate (Morphine Sulfate 4 Mg/Ml Cartridge) 4 mg IVPUSH Q4H PRN; Protocol PRN Reason: Pain, Severe (Pain Scale 7-10) Ondansetron HCl (Ondansetron Hcl 4 Mg/2 Ml Vial) 4 mg IVPUSH Q8H PRN PRN Reason: Nausea and Vomiting Last Admin: 12/09/22 13:06 Dose: 4 mg Pharmacy Consult (Consult Rx Perform Med Rec) 1 each MISCELLANE ONCE PRN PRN Reason: Consult order Sitagliptin Phosphate (Sitagliptin Phosphate 100 Mg Tablet) 100 mg PO BEDTIME [facility] Sodium Chloride (0.9 % Sodium Chloride Flush 3 Ml Syringe) 3 ml IVFLUSH QSHIFT [facility] Last Admin: 12/09/22 09:31 Dose: 3 ml Home Medications Medication Instructions Recorded Confirmed Last Taken Type aspirin 81 mg tablet,delayed 81 mg PO BEDTIME 12/09/22 12/09/22 12/06/22 History release coenzyme Q10 10 mg capsule 10 mg PO BEDTIME 12/09/22 12/09/22 12/06/22 History cyanocobalamin (vitamin B-12) 1,000 mcg PO DAILY 12/09/22 12/09/22 12/06/22 History 1,000 mcg tablet gabapentin 100 mg capsule 1 - 3 cap PO BEDTIME PRN insomnia 12/09/22 12/09/22 12/06/22 History glipizide 5 mg tablet 2 tab PO BIDAC 12/09/22 12/09/22 12/06/22 History ibuprofen 800 mg tablet 1 tab PO TID PRN Pain 12/09/22 12/09/22 12/06/22 History losartan 25 mg tablet 1 tab PO BEDTIME 12/09/22 12/09/22 12/06/22 History melatonin 3 mg tablet 3 mg PO BEDTIME 12/09/22 12/09/22 12/06/22 History sitagliptin phosphate 100 mg 1 tab PO BEDTIME 12/09/22 12/09/22 12/06/22 History tablet (Januvia) Physical Exam Vital Signs: Vital Signs: Last Vital Signs Temp 99.1 F 12/09/22 14:26 Pulse 125 H 12/09/22 14:26 Resp 18 12/09/22 14:26 BP 165/79 H 12/09/22 14:26 Pulse Ox 96 12/09/22 14:26 O2 Del Method 12/09/22 14:26 O2 Flow Rate 2 12/09/22 14:26 BMI result Body Mass Index 40.3 Const: General: cooperative, healthy appearing, comfortable and no acute distress Orientation/consciousness: patient oriented x3 HEENT: Face and sinus: Yes normal facial exam Mouth: moist mucous membranes Neck: Neck: Yes normal visual inspection, Yes full ROM and Yes trachea midline Chest: Chest palpation & inspection: normal inspection of the chest Resp: Effort & Inspection: normal respiratory effort, able to speak in complete sentences and no respiratory distress GI: Inspection: Yes normal to inspection Back/Spine/Pelvis: Cervical Spine: normal cervical lordosis Thoracic/Lumbar Spine: thoracic and lumbar spine normal to inspection Skin: General skin exam: no rashes or lesions noted Neuro: General: patient oriented x3, tone normal and moves all extremities Extrem: General: Yes normal to inspection and Yes capillary refill normal Results Labs 12/09/22 04:37 12/09/22 04:37 Labs: Abnormal lab results 12/08/22 12/08/22 12/08/22 Range/Units 20:56 20:56 22:27 WBC 21.4 H (4.8-10.8) X10*3/uL Hct (37.0-47.0) % MPV 9.1 L (9.4-12.3) fL Immature Gran % (Auto) 0.7 H (0.0-0.4) % Neut % (Auto) 90.7 H (45-73) % Lymph % (Auto) 2.2 L (20-40) % Lymph # (Auto) 0.5 L (1.2-4.9) X10*3/uL [place] # (Auto) 1.3 H (0.1-1.2) X10*3/uL Eos # (Auto) (0.0-0.4) X10*3/uL Abs Immat Gran (auto) 0.15 H (0.00-0.03) X10*3/uL Absolute Neuts (auto) 19.4 H (2.0-8.3) x10*3/uL Carbon Dioxide (22-29) mmol/L BUN 33 H (9-16) mg/dL POC Glucose (60-115) mg/dL Random Glucose 236 H (60-115) mg/dL Calcium (8.4-10.2) mg/dL Urine Protein 300 (3+) H (Neg-Trace) mg/dL Urine Glucose (UA) 100 H (Negative) mg/dL Urine Blood Moderate (2+) H (Negative) Ur Leukocyte Esterase Large (3+) H (Negative) Urine RBC 11-20 H (0-2) /HPF Urine WBC >50 H (0-5) /HPF 12/09/22 12/09/22 12/09/22 Range/Units 04:37 04:37 07:05 WBC 16.5 H (4.8-10.8) X10*3/uL Hct 36.7 L (37.0-47.0) % MPV (9.4-12.3) fL Immature Gran % (Auto) 1.2 H (0.0-0.4) % Neut % (Auto) 85.7 H (45-73) % Lymph % (Auto) 3.2 L (20-40) % Lymph # (Auto) 0.5 L (1.2-4.9) X10*3/uL [place] # (Auto) (0.1-1.2) X10*3/uL Eos # (Auto) 0.5 H (0.0-0.4) X10*3/uL Abs Immat Gran (auto) 0.20 H (0.00-0.03) X10*3/uL Absolute Neuts (auto) 14.1 H (2.0-8.3) x10*3/uL Carbon Dioxide 17 L (22-29) mmol/L BUN 32 H (9-16) mg/dL POC Glucose 208 H (60-115) mg/dL Random Glucose 224 H (60-115) mg/dL Calcium 8.0 L D (8.4-10.2) mg/dL Urine Protein (Neg-Trace) mg/dL Urine Glucose (UA) (Negative) mg/dL Urine Blood (Negative) Ur Leukocyte Esterase (Negative) Urine RBC (0-2) /HPF Urine WBC (0-5) /HPF 12/09/22 12/09/22 12/09/22 Range/Units 11:42 12:00 15:45 WBC (4.8-10.8) X10*3/uL Hct (37.0-47.0) % MPV (9.4-12.3) fL Immature Gran % (Auto) (0.0-0.4) % Neut % (Auto) (45-73) % Lymph % (Auto) (20-40) % Lymph # (Auto) (1.2-4.9) X10*3/uL [place] # (Auto) (0.1-1.2) X10*3/uL Eos # (Auto) (0.0-0.4) X10*3/uL Abs Immat Gran (auto) (0.00-0.03) X10*3/uL Absolute Neuts (auto) (2.0-8.3) x10*3/uL Carbon Dioxide (22-29) mmol/L BUN (9-16) mg/dL POC Glucose 244 H 230 H 199 H (60-115) mg/dL Random Glucose (60-115) mg/dL Calcium (8.4-10.2) mg/dL Urine Protein (Neg-Trace) mg/dL Urine Glucose (UA) (Negative) mg/dL Urine Blood (Negative) Ur Leukocyte Esterase (Negative) Urine RBC (0-2) /HPF Urine WBC (0-5) /HPF Short CBC 12/08/22 12/09/22 Range/Units 20:56 04:37 WBC 21.4 H 16.5 H (4.8-10.8) X10*3/uL Hgb 13.0 12.1 (12.0-16.0) g/dl Hct 39.9 36.7 L (37.0-47.0) % Plt Count 231 207 (160-400) X10*3/uL BMP 12/08/22 12/09/22 20:56 04:37 Sodium 136 137 Potassium 3.6 3.7 Chloride 102 108 Carbon Dioxide 23 17 L BUN 33 H 32 H Creatinine 1.15 0.83 Calcium 8.9 8.0 L D Urine 12/08/22 Range/Units 22:27 Urine Color Yellow Urine Appearance Turbid Urine pH 6.5 (5.0-9.0) Ur Specific [place] 1.020 (1.005-1.025) Urine Protein 300 (3+) H (Neg-Trace) mg/dL Urine Glucose (UA) 100 H (Negative) mg/dL All other labs normal. Assessment and Plan (1) Hydronephrosis: Status: Acute Plan Risks, benefits and alternatives to therapy were discussed. These include but are not limited to infection, bleeding, damage to local organs and tissues, need for further interventions. Anesthetic risks regarding cardiac arrhythmia, blood clots, and potential mortality were discussed. The patient understands the typical recovery time and the outpatient nature of the procedure. After consideration of these risks the patient gives full informed consent and they wish to move ahead with the procedure. Cystoscopy, right retrograde, right stent placement Time Spent With Patient Time: Total time managing care of this patient today ____ minutes. Procedures Date of Service Date of Service: 12/09/22
[2022-12-09] MEDS: 0.9 % Sodium Chloride 1,000 ML 100 ML IVCONT (16:07)
[2022-12-09] MEDS: Acetaminophen 1,000 MG/100 ML PIGGYBACK 400 MG IV (16:08)
[2022-12-09] MEDS: levoFLOXacin/D5W 500 MG/100 ML PIGGYBACK 100 MG IV (16:30)
--- NOTE | 2022-12-09 16:31 | MHC.SHP ---
Pre-Procedural Eval Section A Date of Service: 12/09/22 The patient is an INPATIENT: Yes Changes since office visit: No Cold of Flu in the past 2 weeks, No New Medical Problems, No Changes in Medication and No Patient answered all questions The History & Physical has been completed within 30 days and I have reviewed it.: No Section B Chief Complaint: Abdominal Pain Details of Present Illness: right flank pain Relevant Social History: None Present Medications: see Short Stay Collaborative assessment Medical History: No relevant PMH History of Previous Operations: No relevant previous surgery Allergies: Allergies Allergy/AdvReac Type Severity Reaction Status Date / Time Penicillins [PCN] Allergy Hives Verified 12/08/22 20:03 codeine AdvReac Nausea Verified 12/08/22 20:03 metformin AdvReac Unknown Verified 12/08/22 20:03 Review of Systems Sugical H&P ROS: Negative: Constitution, Cardiovascular, Respiratory, Neurological, Psychiatric, Hem-Onc, Allergic/Immunologic, Gastrointestinal, Genitourinary, Musculoskeletal, Integumentary, Endocrine and Eyes/Ears/Nose/Throat Exam Surgical H&P Exam: Normal: HEENT, Normal: Heart, Normal: Lungs, Normal: Extremities, Normal: Abdomen, Normal: Skin and Normal: Neurological Plan Diagnosis/Plan: Unchanged ( cystoscopy, right retrograde, right stent placement) I have reviewed the history and physical and performed a pertinent physical examination on my patient. No changes have occurred unless specified. Time Spent With Patient Time: Total time managing care of this patient today ____ minutes.
--- NOTE | 2022-12-09 17:03 | W.PM.OPN ---
Operative Note Operative Note Date of Service: 12/09/22 Narrative: PreOperative Diagnosis: right proximal ureteric stone Post Operative Diagnosis: right proximal ureteric stone Procedure: cystoscopy right retrograde, aspiration right renal pelvis, right stent placement Surgeon: Dr Wale Gabriel Anesthesia: Mehran Harper Indications for procedure: right proximal ureteric stone with hydroureteronephrosis and white count of 16 Procedure: After informed consent was verified the patient was brought to the operating room and placed in a supine position. Anesthesia was administered per protocol. The patient was placed in modified dorsal lithotomy position and prepped and draped in a sterile fashion. A safety pause time-out was performed. Laterality of procedure and antibiotics were confirmed, appropriate imaging was available A 22 Bh[place] cystoscope was introduced per urethra. No abnormality was noted of urethra or bladder. Both ureteric orifices were seen in a normal position. The right ureter was cannulated with an open ended catheter and a retrograde examination was performed. filling defects seen in proximal portion of right ureter with hydronephrosis . A Sensor guidewire was placed under fluoroscopy and a good coil was seen within the renal pelvis. the open-ended catheter was again placed. The wire removed. Aspiration was performed of the right renal pelvis and fluid was sent for culture A 6 [place] by 24 cm double J stent was advanced over the wire and up to the level of the renal pelvis under fluoroscopic and direct visualization. The stent was seen with appropriate coil within the renal pelvis and in the bladder after deployment. The patient tolerated the procedure well and was transferred in a stable condition to the recovery area. Pathology: none Drains: as above
[2022-12-09] MEDS: Phenazopyridine HCL 100 MG TABLET PO (18:09)
[2022-12-09] MEDS: Albuterol Sulfate (0.083%) 2.5 MG/3 ML VIAL.NEB INHALE (18:12)
[2022-12-09] MEDS: Losartan Potassium 25 MG TABLET PO (19:59)
[2022-12-09] MEDS: SITagliptin Phosphate 100 MG TABLET PO (20:07)
[2022-12-09] MEDS: Enoxaparin Sodium 40 MG/0.4 ML SYRINGE SUBCUT (20:08)
[2022-12-09 20:11] LABS: Glucose, Whole Blood 227 mg/dL (60-115)
[2022-12-09] MEDS: Melatonin 3 MG TABLET 6 MG PO (23:48)
[2022-12-09] MEDS: traMADoL HCL 50 MG TABLET PO (23:48)
[2022-12-10 00:34] LABS: Glucose, Whole Blood 223 mg/dL (60-115)
[2022-12-10 03:11] VITALS: BP 127/73; PULSE 110; RESP 20; TEMP 37.2; O2SAT 93
[2022-12-10] MEDS: Metoclopramide HCl 10 MG/2 ML VIAL IVPUSH (04:19)
[2022-12-10 07:34] VITALS: BP 157/70; PULSE 122; RESP 18; TEMP 37.4; O2SAT 90
[2022-12-10 07:48] LABS: Glucose, Whole Blood 215 mg/dL (60-115)
[2022-12-10 08:16] LABS: Hematocrit 36.6 % (37.0-47.0); Hemoglobin 11.5 g/dl (12.0-16.0); Mean Corpuscular HGB Conc 31.4 g/dl (31.0-35.0); Mean Corpuscular Hemoglobin 27.4 pg (27.0-33.0); Mean Corpuscular Volume 87.1 fL (80.0-98.0); Mean Platelet Volume 10.1 fL (9.4-12.3); Platelet Count 235 X10*3/uL (160-400); Red Cell Distribution Width 14.3 % (11.0-16.0); White Blood Count 15.1 X10*3/uL (4.8-10.8)
[2022-12-10 08:42] LABS: Anion Gap 15 (12-20); Blood Urea Nitrogen 25 mg/dL (9-16); Carbon Dioxide 19 mmol/L (22-29); Chloride 108 mmol/L (96-108); Creatinine Clr Calc Pharmacy 79.6; Estimated Glomerular Filt Rate > 60; Glucose Fasting 272 mg/dL (60-99); Potassium 4.1 mmol/L (3.3-5.1); Sodium 138 mmol/L (135-145)
[2022-12-10] MEDS: 0.9 % Sodium Chloride 1,000 ML 75 ML IVCONT ×2 (08:54→23:57)
[2022-12-10] MEDS: Cyanocobalamin (Vitamin B-12) 1,000 MCG TABLET 1000 MCG PO (08:58)
[2022-12-10] MEDS: ondansetron HCL 4 MG/2 ML VIAL IVPUSH (08:59)
--- NOTE | 2022-12-10 09:08 | P.PNIM_ITS ---
Subjective Subjective Date of Service: 12/10/22 Interval History: cc: abd pain interval history:nausea Physical Exam Vital Signs: Vital Signs: Last Vital Signs Temp 99.3 F 12/10/22 07:34 Pulse 122 H 12/10/22 07:34 Resp 18 12/10/22 07:34 BP 157/70 H 12/10/22 07:34 Pulse Ox 90 L 12/10/22 07:34 O2 Del Method 12/10/22 07:34 O2 Flow Rate 1.5 12/10/22 07:34 BMI result Body Mass Index 40.3 Const: General: cooperative, healthy appearing, comfortable and no acute distress Orientation/consciousness: patient oriented x3 HEENT: Face and sinus: Yes normal facial exam Mouth: moist mucous membranes Neck: Neck: Yes normal visual inspection, Yes full ROM and Yes trachea midline Chest: Chest palpation & inspection: normal inspection of the chest Resp: Effort & Inspection: normal respiratory effort, able to speak in complete sentences and no respiratory distress GI: Inspection: Yes normal to inspection Back/Spine/Pelvis: Cervical Spine: normal cervical lordosis Thoracic/Lumbar Spine: thoracic and lumbar spine normal to inspection Skin: General skin exam: no rashes or lesions noted Neuro: General: patient oriented x3, tone normal and moves all extremities Extrem: General: Yes normal to inspection and Yes capillary refill normal Objective Data Active Medications Acetaminophen (Acetaminophen 325 Mg Tablet) 650 mg PO Q6H PRN PRN Reason: Pain, Mild (Pain Scale 1-3) Cyanocobalamin (Cyanocobalamin (Vitamin B-12) 1,000 Mcg Tablet) 1,000 mcg PO DAILY [facility] Last Admin: 12/10/22 08:58 Dose: 1,000 mcg Documented By: LATOSHA Dextrose (Dextrose 50 % 25 Gm/50 Ml Syringe) 25 gm IVPUSH Q15M PRN; Protocol PRN Reason: per Hypoglycemia Standing Ord. Enoxaparin Sodium (Enoxaparin Sodium 40 Mg/0.4 Ml Syringe) 40 mg SUBCUT Q24H [facility] Last Admin: 12/09/22 20:08 Dose: 40 mg Documented By: AFUA Glucose (Glucose Gel 15 Gm Gel..Gram.) 15 gm PO Q15M PRN; Protocol PRN Reason: per Hypoglycemia Standing Ord. Ceftriaxone Sodium 1 gm/ (Sodium Chloride) 50 mls @ 100 mls/hr IV Q24H [facility] Last Infusion: 12/10/22 00:39 Dose: 0 mls/hr Documented By: AFUA Sodium Chloride (Ns) 1,000 mls @ 75 mls/hr IVCONT .[id number] [facility] Last Admin: 12/10/22 08:54 Dose: 75 mls/hr Documented By: LATOSHA Insulin Human Lispro (Insulin Lispro 100 Unit/Ml 3 Ml Vial) 0 unit SUBCUT Q6H [facility]; Protocol Last Admin: 12/10/22 05:35 Dose: Not Given Documented By: AFUA Non-Admin Reason: Patient Refused Losartan Potassium (Losartan Potassium 25 Mg Tablet) 25 mg PO BEDTIME NIGEL; Protocol Last Admin: 12/09/22 19:59 Dose: 25 mg Documented By: AFUA Melatonin (Melatonin 3 Mg Tablet) 6 mg PO BEDTIME PRN PRN Reason: Insomnia Last Admin: 12/09/22 23:48 Dose: 6 mg Documented By: AFUA Morphine Sulfate (Morphine Sulfate 4 Mg/Ml Cartridge) 4 mg IVPUSH Q4H PRN; Protocol PRN Reason: Pain, Severe (Pain Scale 7-10) Ondansetron HCl (Ondansetron Hcl 4 Mg/2 Ml Vial) 4 mg IVPUSH Q8H PRN PRN Reason: Nausea and Vomiting Last Admin: 12/10/22 08:59 Dose: 4 mg Documented By: LATOSHA Pharmacy Consult (Consult Rx Perform Med Rec) 1 each MISCELLANE ONCE PRN PRN Reason: Consult order Sitagliptin Phosphate (Sitagliptin Phosphate 100 Mg Tablet) 100 mg PO BEDTIME [facility] Last Admin: 12/09/22 20:07 Dose: 100 mg Documented By: AFUA Sodium Chloride (0.9 % Sodium Chloride Flush 3 Ml Syringe) 3 ml IVFLUSH QSHIFT [facility] Last Admin: 12/10/22 07:20 Dose: Not Given Documented By: LATOSHA Non-Admin Reason: IV Running Tramadol HCl (Tramadol Hcl 50 Mg Tablet) 50 mg PO Q6H PRN PRN Reason: Pain, Moderate (Pain Scale 4-6 Last Admin: 12/09/22 23:48 Dose: 50 mg Documented By: AFUA Labs 12/10/22 07:50 12/10/22 07:50 Labs: Laboratory Results - last 24 hr 12/09/22 12/09/22 12/09/22 11:42 12:00 15:45 MCV MCH MCHC RDW Plt Count MPV Absolute Nucleated RBC Nucleated RBC % (auto) Anion Gap Estim Creat Clear Calc Estimated GFR POC Glucose 244 H 230 H 199 H Fasting Glucose Calcium 12/09/22 12/10/22 12/10/22 20:07 00:29 07:33 MCV MCH MCHC RDW Plt Count MPV Absolute Nucleated RBC Nucleated RBC % (auto) Anion Gap Estim Creat Clear Calc Estimated GFR POC Glucose 227 H 223 H 215 H Fasting Glucose Calcium 12/10/22 12/10/22 07:50 07:50 MCV 87.1 MCH 27.4 MCHC 31.4 RDW 14.3 Plt Count 235 MPV 10.1 Absolute Nucleated RBC 0.000 Nucleated RBC % (auto) 0.0 Anion Gap 15 Estim Creat Clear Calc 79.6 Estimated GFR > 60 POC Glucose Fasting Glucose 272 H Calcium 8.0 L Microbiology Microbiology Results: Microbiology 12/09/22 01:04 Blood Culture - Preliminary Blood - Venous No growth after 24 hours. 12/09/22 01:04 Blood Culture - Preliminary Blood - Venous No growth after 24 hours. 12/08/22 22:53 Urine Culture - Preliminary Urine clean catch - Urine adamson top Culture too young to evaluate. Assessment and Plan (1) Renal calculi: Status: Acute Plan 62-year-old female with pertinent history of feb-zepctzo-ujjjkayky diabetes mellitus, morbid obesity, who presented to the emergency department for evaluation of abdominal pain. Right-sided hydronephrosis due to right UPJ calculus complicated by sepsis due to acute pylenoephritis rocephin s/p cystoscopy right retrograde,? aspiration right renal pelvis, right stent placement 12/09/22 DM with hyperglycemia insulin morbid obeseity weight loss recommended acute hypoxic respiraotry failure ?poor inspiratory effort/obesity restriction wean o2 as tolerated no evidence of CKD DVT prophylaxis:? lovenox Full code reason for continued hospitalization: hypoxia Time Spent With Patient Time: Total time managing care of this patient today ____ minutes. Quality Stroke Does the patient have a stroke diagnosis?: No VTE Prior VTE?: No VTE Risk Level:: Medical - moderate - high VTE Device Contraindication: N/A - Device Ordered VTE Drug Contraindication: Treatment Not Indicated
--- NOTE | 2022-12-10 11:18 | PC.NURSE ---
pt refusing Lispro, Dr Guerra aware.
[2022-12-10 11:40] LABS: Glucose, Whole Blood 264 mg/dL (60-115)
[2022-12-10] MEDS: Omeprazole 40 MG CAPSULE.DR PO (14:34)
--- NOTE | 2022-12-10 15:50 | HO.POSTANES ---
Post Anesthesia Evaluation Post Anesthesia Evaluation Vital Signs: Vital Signs Temp Pulse Resp BP Pulse Ox O2 Del Method O2 Flow Rate 12/10/22 07:34 99.3 F 122 H 18 157/70 H 90 L Nasal Cannula 1.5 Anesthesia: General Endotracheal-GETA Mental Status: Awake Pain Control: Satisfactory Nausea/Vomiting: None Hydration: Adequate Anesthesia-Related Issues: No Anes. Related Issues
--- NOTE | 2022-12-10 16:15 | MHC.CM.PN ---
CM MET WITH SON, RAMONA, AT BEDSIDE PT SLEEPING PT LIVES AT HOME WTIH HER SON AND IS INDEPENDENT WITH CARE AT BASELINE SHE USES A [employer] FOR DME AND HAS NO SERVICES PT HAS A HCP NAMING HER DAUGHTER, SHANT, HER AGENT, COPY REQ SHE IS COVID VAX, NOT BOOSTED PCP: TOM SHETTY DCP: HOME NO SERVICES SON TO TRANSPORT
[2022-12-10 16:21] VITALS: BP 153/70; PULSE 120; RESP 20; TEMP 37.3; O2SAT 92
[2022-12-10] MEDS: traMADoL HCL 50 MG TABLET PO (16:27)
[2022-12-10 17:04] LABS: Glucose, Whole Blood 317 mg/dL (60-115)
--- NOTE | 2022-12-10 17:13 | PC.NURSE ---
Pt POC 317, pt refusing insulin. Dr Guerra made aware.
[2022-12-10 17:31] VITALS: O2SAT 92
[2022-12-10] MEDS: Enoxaparin Sodium 40 MG/0.4 ML SYRINGE SUBCUT (17:40)
[2022-12-10 17:41] VITALS: O2SAT 92
[2022-12-10 19:50] VITALS: BP 158/72; PULSE 110; RESP 18; TEMP 36.9; O2SAT 92
[2022-12-10 20:37] LABS: Glucose, Whole Blood 357 mg/dL (60-115)
[2022-12-10] MEDS: Losartan Potassium 25 MG TABLET PO (21:04)
[2022-12-10] MEDS: SITagliptin Phosphate 100 MG TABLET PO (21:04)
[2022-12-10] MEDS: cefTRIAXone sodium 1 GM in 0.9 % Sodium Chloride 50 ML IV (23:56)
--- NOTE | 2022-12-11 | ECG_ITS ---
Test Reason : tachycardia Blood Pressure : / mmHG Vent. Rate : 125 BPM Atrial Rate : 000 BPM P-R Int : 000 ms QRS Dur : 076 ms QT Int : 284 ms P-R-T Axes : 000 034 035 degrees QTc Int : 409 ms Atrial fibrillation with rapid ventricular response Abnormal ECG No previous ECGs available Referred By: Jonas Guerra Electronically Signed By:JESSIKA PORTILLO MD
[2022-12-11 03:37] VITALS: BP 145/83; PULSE 123; RESP 20; TEMP 37.7; O2SAT 92
[2022-12-11] MEDS: ondansetron HCL 4 MG/2 ML VIAL IVPUSH ×2 (04:53→14:27)
[2022-12-11] MEDS: Omeprazole 40 MG CAPSULE.DR PO (05:56)
[2022-12-11 07:43] VITALS: BP 148/76; PULSE 114; RESP 18; TEMP 36.7; O2SAT 92
[2022-12-11 07:44] LABS: Glucose, Whole Blood 299 mg/dL (60-115)
[2022-12-11] MEDS: Cyanocobalamin (Vitamin B-12) 1,000 MCG TABLET 1000 MCG PO (08:01)
--- NOTE | 2022-12-11 09:32 | HO.PM.IMPN ---
Subjective Subjective Date of Service: 12/11/22 Interval History: cc: abd pain interval history:nausea Physical Exam Vital Signs: Vital Signs: Last Vital Signs Temp 98.1 F 12/11/22 07:43 Pulse 114 H 12/11/22 07:43 Resp 18 12/11/22 07:43 BP 148/76 H 12/11/22 07:43 Pulse Ox 92 12/11/22 07:43 O2 Del Method 12/11/22 07:43 O2 Flow Rate 2 12/11/22 07:43 Oxygen Flow Rate 2 12/10/22 17:41 BMI result Body Mass Index 40.3 Const: General: cooperative, healthy appearing, comfortable and no acute distress Orientation/consciousness: patient oriented x3 HEENT: Face and sinus: Yes normal facial exam Mouth: moist mucous membranes Neck: Neck: Yes normal visual inspection, Yes full ROM and Yes trachea midline Chest: Chest palpation & inspection: normal inspection of the chest Resp: Effort & Inspection: normal respiratory effort, able to speak in complete sentences and no respiratory distress GI: Inspection: Yes normal to inspection Back/Spine/Pelvis: Cervical Spine: normal cervical lordosis Thoracic/Lumbar Spine: thoracic and lumbar spine normal to inspection Skin: General skin exam: no rashes or lesions noted Neuro: General: patient oriented x3, tone normal and moves all extremities Extrem: General: Yes normal to inspection and Yes capillary refill normal Objective Data Active Medications Acetaminophen (Acetaminophen 325 Mg Tablet) 650 mg PO Q6H PRN PRN Reason: Pain, Mild (Pain Scale 1-3) Cyanocobalamin (Cyanocobalamin (Vitamin B-12) 1,000 Mcg Tablet) 1,000 mcg PO DAILY [facility] Last Admin: 12/11/22 08:01 Dose: 1,000 mcg Documented By: LATOSHA Dextrose (Dextrose 50 % 25 Gm/50 Ml Syringe) 25 gm IVPUSH Q15M PRN; Protocol PRN Reason: per Hypoglycemia Standing Ord. Enoxaparin Sodium (Enoxaparin Sodium 40 Mg/0.4 Ml Syringe) 40 mg SUBCUT Q24H [facility] Last Admin: 12/10/22 17:40 Dose: 40 mg Documented By: LATOSHA Glucose (Glucose Gel 15 Gm Gel..Gram.) 15 gm PO Q15M PRN; Protocol PRN Reason: per Hypoglycemia Standing Ord. Ceftriaxone Sodium 1 gm/ (Sodium Chloride) 50 mls @ 100 mls/hr IV Q24H [facility] Last Infusion: 12/11/22 00:50 Dose: 0 mls/hr Documented By: AFUA Sodium Chloride (Ns) 1,000 mls @ 75 mls/hr IVCONT .[id number] [facility] Last Admin: 12/10/22 23:57 Dose: 75 mls/hr Documented By: AFUA Insulin Human Lispro (Insulin Lispro 100 Unit/Ml 3 Ml Vial) 0 unit SUBCUT QIDACHS [facility]; Protocol Last Admin: 12/11/22 07:58 Dose: Not Given Documented By: LATOSHA Non-Admin Reason: Patient Refused Losartan Potassium (Losartan Potassium 25 Mg Tablet) 25 mg PO BEDTIME [facility]; Protocol Last Admin: 12/10/22 21:04 Dose: 25 mg Documented By: AFUA Melatonin (Melatonin 3 Mg Tablet) 6 mg PO BEDTIME PRN PRN Reason: Insomnia Last Admin: 12/09/22 23:48 Dose: 6 mg Documented By: AFUA Morphine Sulfate (Morphine Sulfate 4 Mg/Ml Cartridge) 4 mg IVPUSH Q4H PRN; Protocol PRN Reason: Pain, Severe (Pain Scale 7-10) Omeprazole (Omeprazole 40 Mg Capsule.Dr) 40 mg PO DAILY@0630 [facility] Last Admin: 12/11/22 05:56 Dose: 40 mg Documented By: AFUA Ondansetron HCl (Ondansetron Hcl 4 Mg/2 Ml Vial) 4 mg IVPUSH Q8H PRN PRN Reason: Nausea and Vomiting Last Admin: 12/11/22 04:53 Dose: 4 mg Documented By: AFUA Pharmacy Consult (Consult Rx Perform Med Rec) 1 each MISCELLANE ONCE PRN PRN Reason: Consult order Sitagliptin Phosphate (Sitagliptin Phosphate 100 Mg Tablet) 100 mg PO BEDTIME [facility] Last Admin: 12/10/22 21:04 Dose: 100 mg Documented By: AFUA Sodium Chloride (0.9 % Sodium Chloride Flush 3 Ml Syringe) 3 ml IVFLUSH QSHIFT [facility] Last Admin: 12/11/22 07:07 Dose: Not Given Documented By: LATOSHA Non-Admin Reason: IV Running Tramadol HCl (Tramadol Hcl 50 Mg Tablet) 50 mg PO Q6H PRN PRN Reason: Pain, Moderate (Pain Scale 4-6 Last Admin: 12/10/22 16:27 Dose: 50 mg Documented By: LATOSHA Labs 12/10/22 07:50 12/10/22 07:50 Labs: Laboratory Results - last 24 hr 12/10/22 12/10/22 12/10/22 11:34 17:00 20:30 POC Glucose 264 H 317 H 357 H* 12/11/22 07:35 POC Glucose 299 H Microbiology Microbiology Results: Microbiology 12/09/22 Unknown Gram Stain - Final Kidney Right Routine Culture - Final No growth. 12/08/22 22:53 Urine Culture - Final Urine clean catch - Urine adamson top Proteus mirabilis 12/09/22 01:04 Blood Culture - Preliminary Blood - Venous No growth after 48 hours. 12/09/22 01:04 Blood Culture - Preliminary Blood - Venous No growth after 48 hours. Assessment and Plan (1) Renal calculi: Status: Acute Plan 62-year-old female with pertinent history of fjm-luuqyem-sttvcuiiq diabetes mellitus, morbid obesity, who presented to the emergency department for evaluation of abdominal pain. Right-sided hydronephrosis due to right UPJ calculus complicated by sepsis due to acute pylenoephritis rocephin s/p cystoscopy right retrograde,? aspiration right renal pelvis, right stent placement 12/09/22 DM with hyperglycemia insulin morbid obeseity weight loss recommended acute hypoxic respiraotry failure ?poor inspiratory effort/obesity restriction wean o2 as tolerated tachycardia check ekg no evidence of CKD DVT prophylaxis:? lovenox Full code reason for continued hospitalization: hypoxia Time Spent With Patient Time: Total time managing care of this patient today ____ minutes. Quality Stroke Does the patient have a stroke diagnosis?: No VTE Prior VTE?: No VTE Risk Level:: Medical - moderate - high VTE Device Contraindication: N/A - Device Ordered VTE Drug Contraindication: Treatment Not Indicated
[2022-12-11 09:40] LABS: Hematocrit 34.7 % (37.0-47.0); Hemoglobin 11.4 g/dl (12.0-16.0); Mean Corpuscular HGB Conc 32.9 g/dl (31.0-35.0); Mean Corpuscular Hemoglobin 27.8 pg (27.0-33.0); Mean Corpuscular Volume 84.6 fL (80.0-98.0); Mean Platelet Volume 10.1 fL (9.4-12.3); Platelet Count 248 X10*3/uL (160-400); Red Cell Distribution Width 14.4 % (11.0-16.0); White Blood Count 16.8 X10*3/uL (4.8-10.8)
[2022-12-11 10:01] LABS: Anion Gap 16 (12-20); Blood Urea Nitrogen 22 mg/dL (9-16); Calcium 8.4 mg/dL (8.4-10.2); Carbon Dioxide 20 mmol/L (22-29); Chloride 107 mmol/L (96-108); Creatinine Clr Calc Pharmacy 87.9; Estimated Glomerular Filt Rate > 60; Glucose Fasting 315 mg/dL (60-99); Potassium 3.7 mmol/L (3.3-5.1); Sodium 139 mmol/L (135-145)
[2022-12-11] MEDS: Apixaban 5 MG TABLET PO ×2 (11:10→19:47)
[2022-12-11] MEDS: Metoprolol Tartrate 25 MG TABLET PO (11:10)
[2022-12-11 11:12] VITALS: BP 172/77; PULSE 117; RESP 18
[2022-12-11 11:23] LABS: Glucose, Whole Blood 279 mg/dL (60-115)
[2022-12-11 11:29] LABS: Magnesium 1.7 mg/dL (1.6-2.6)
[2022-12-11 11:44] LABS: Thyroid Stimulating Hormone 0.22 uIU/mL (0.32-4.0)
--- NOTE | 2022-12-11 12:30 | PC.NURSE ---
pt tachycardic per vitals. Dr Guerra aware, EKG ordered. EKG given to Dr Guerra showing Afib. New order for telemetry monitoring. New orders per MD for metoprolol and Eliquis.
--- NOTE | 2022-12-11 12:35 | PC.NURSE ---
Pt has PO metprolol QID ordered. First dose given at 1110. Next dose due at 1300. Spoke to pharmacist who advised to hold dose due at 1300 due to short time since first dose administration. Advised to continue with scheduled dosing starting at 1700.
--- NOTE | 2022-12-11 13:12 | P.CONCA_ITS ---
History of Present Illness History of Present Illness Date of Service: 12/11/22 Requesting physician: Jonas Guerra Chief complaint: AFib Narrative: 62-year-old female presenting for right-sided hydronephrosis due to ureteric stone. She developed pyelonephritis underwent cystoscopy and right ureteric stent placement on December 09. She has developed AFib with RVR in this setting. She is asymptomatic. She is saying she has chills and is still recovering from the infection right now. Denying any chest pain or shortness of breath. No palpitations. Telemetry has shown AFib with RVR with heart rates averaging in 120s. She seems quite distressed right now. She has been on metoprolol for rate control. New started on Eliquis by the medicine team. [facility] Past Medical History Medical History Diabetes Renal insufficiency Social History Social History Household Members: Family Housing: Apartment Do you presently have visiting nurse or other home services: Yes Patient Tobacco Use Status: Never used Tobacco Use of substances other than those prescribed or required for medical reasons: No Currently Displaying Signs/Symptoms of Drug Intoxication Withdrawal: No Have you been hit, kicked, punched, or otherwise hurt by someone within the past year? If so, by whom?: No Do you feel safe in your current relationship?: Yes Is there a partner from a previous relationship who is making you feel unsafe now?: No Are you made to feel afraid or neglected: No Are you DNR?: No Advance Directives: No Advance Directives Information Provided: No Do you have thoughts of harming others: None Do you have a plan to hurt others: No Plan Recently lost weight without trying: No Nutrition Risks: No Nutritional Risk Patient : No : No Poor oral hygiene: No service: No Current occupational status: employed Meds Allergies Allergy/AdvReac Type Severity Reaction Status Date / Time Penicillins [PCN] Allergy Hives Verified 12/08/22 20:03 codeine AdvReac Nausea Verified 12/08/22 20:03 metformin AdvReac Unknown Verified 12/08/22 20:03 Active Medications: Current Medications Acetaminophen (Acetaminophen 325 Mg Tablet) 650 mg PO Q6H PRN PRN Reason: Pain, Mild (Pain Scale 1-3) Apixaban (Apixaban 5 Mg Tablet) 5 mg PO BID COUNTS INCLUDE 234 BEDS AT THE [facility] Last Admin: 12/11/22 11:10 Dose: 5 mg Cyanocobalamin (Cyanocobalamin (Vitamin B-12) 1,000 Mcg Tablet) 1,000 mcg PO DAILY COUNTS INCLUDE 234 BEDS AT THE [facility] Last Admin: 12/11/22 08:01 Dose: 1,000 mcg Dextrose (Dextrose 50 % 25 Gm/50 Ml Syringe) 25 gm IVPUSH Q15M PRN; Protocol PRN Reason: per Hypoglycemia Standing Ord. Glipizide (Glipizide 10 Mg Tablet) 10 mg PO BIDAC COUNTS INCLUDE 234 BEDS AT THE [facility] Glucose (Glucose Gel 15 Gm Gel..Gram.) 15 gm PO Q15M PRN; Protocol PRN Reason: per Hypoglycemia Standing Ord. Ceftriaxone Sodium 1 gm/ (Sodium Chloride) 50 mls @ 100 mls/hr IV Q24H COUNTS INCLUDE 234 BEDS AT THE [facility] Last Infusion: 12/11/22 00:50 Dose: Infused Insulin Human Lispro (Insulin Lispro 100 Unit/Ml 3 Ml Vial) 0 unit SUBCUT QIDACHS COUNTS INCLUDE 234 BEDS AT THE [facility]; Protocol Last Admin: 12/11/22 11:25 Dose: Not Given Losartan Potassium (Losartan Potassium 25 Mg Tablet) 25 mg PO BEDTIME COUNTS INCLUDE 234 BEDS AT THE [facility]; Protocol Last Admin: 12/10/22 21:04 Dose: 25 mg Melatonin (Melatonin 3 Mg Tablet) 6 mg PO BEDTIME PRN PRN Reason: Insomnia Last Admin: 12/09/22 23:48 Dose: 6 mg Metoprolol Tartrate (Metoprolol Tartrate 25 Mg Tablet) 25 mg PO QID COUNTS INCLUDE 234 BEDS AT THE [facility]; Protocol Last Admin: 12/11/22 12:47 Dose: Not Given Morphine Sulfate (Morphine Sulfate 4 Mg/Ml Cartridge) 4 mg IVPUSH Q4H PRN; Protocol PRN Reason: Pain, Severe (Pain Scale 7-10) Omeprazole (Omeprazole 40 Mg Capsule.Dr) 40 mg PO DAILY@0630 COUNTS INCLUDE 234 BEDS AT THE [facility] Last Admin: 12/11/22 05:56 Dose: 40 mg Ondansetron HCl (Ondansetron Hcl 4 Mg/2 Ml Vial) 4 mg IVPUSH Q8H PRN PRN Reason: Nausea and Vomiting Last Admin: 12/11/22 04:53 Dose: 4 mg Pharmacy Consult (Consult Rx Perform Med Rec) 1 each MISCELLANE ONCE PRN PRN Reason: Consult order Sitagliptin Phosphate (Sitagliptin Phosphate 100 Mg Tablet) 100 mg PO BEDTIME COUNTS INCLUDE 234 BEDS AT THE [facility] Last Admin: 12/10/22 21:04 Dose: 100 mg Sodium Chloride (0.9 % Sodium Chloride Flush 3 Ml Syringe) 3 ml IVFLUSH QSHIFT COUNTS INCLUDE 234 BEDS AT THE [facility] Last Admin: 12/11/22 07:07 Dose: Not Given Tramadol HCl (Tramadol Hcl 50 Mg Tablet) 50 mg PO Q6H PRN PRN Reason: Pain, Moderate (Pain Scale 4-6 Last Admin: 12/10/22 16:27 Dose: 50 mg Home Medications Medication Instructions Recorded Confirmed Last Taken Type aspirin 81 mg tablet,delayed 81 mg PO BEDTIME 12/09/22 12/09/22 12/06/22 History release coenzyme Q10 10 mg capsule 10 mg PO BEDTIME 12/09/22 12/09/22 12/06/22 History cyanocobalamin (vitamin B-12) 1,000 mcg PO DAILY 12/09/22 12/09/22 12/06/22 History 1,000 mcg tablet gabapentin 100 mg capsule 1 - 3 cap PO BEDTIME PRN insomnia 12/09/22 12/09/22 12/06/22 History glipizide 5 mg tablet 2 tab PO BIDAC 12/09/22 12/09/22 12/06/22 History ibuprofen 800 mg tablet 1 tab PO TID PRN Pain 12/09/22 12/09/22 12/06/22 History losartan 25 mg tablet 1 tab PO BEDTIME 12/09/22 12/09/22 12/06/22 History melatonin 3 mg tablet 3 mg PO BEDTIME 12/09/22 12/09/22 12/06/22 History sitagliptin phosphate 100 mg 1 tab PO BEDTIME 12/09/22 12/09/22 12/06/22 History tablet (Januvia) Physical Exam Vital Signs: Vital Signs: Last Vital Signs Temp 98.1 F 12/11/22 07:43 Pulse 117 H 12/11/22 11:12 Resp 18 12/11/22 11:12 BP 172/77 H 12/11/22 11:12 Pulse Ox 92 12/11/22 07:43 O2 Del Method 12/11/22 07:43 O2 Flow Rate 2 12/11/22 07:43 Oxygen Flow Rate 2 12/10/22 17:41 BMI result Body Mass Index 40.3 GENERAL APPEARANCE: Distress, tachypneic. In that she has been having chills. NECK: no carotid bruit, no jugular venous distention. SKIN: no suspicious lesions, warm and dry. HEART: no murmurs, irregular rate and rhythm. Tachycardic. LUNGS: clear to auscultation bilaterally. ABDOMEN: soft, nontender. EXTREMITIES: no edema. PERIPHERAL PULSES: equal. NEUROLOGIC: No gross deficits, AAO X 3 Objective Labs and Meds 12/11/22 09:23 12/11/22 09:23 Lab results: Laboratory Results - last 24 hr 12/10/22 12/10/22 12/11/22 17:00 20:30 07:35 WBC RBC Hgb Hct MCV MCH MCHC RDW Plt Count MPV Absolute Nucleated RBC Nucleated RBC % (auto) Sodium Potassium Chloride Carbon Dioxide Anion Gap BUN Creatinine Estim Creat Clear Calc Estimated GFR POC Glucose 317 H 357 H* 299 H Fasting Glucose Calcium Magnesium TSH 12/11/22 12/11/22 12/11/22 09:23 09:23 11:19 WBC 16.8 H RBC 4.10 L Hgb 11.4 L Hct 34.7 L MCV 84.6 MCH 27.8 MCHC 32.9 RDW 14.4 Plt Count 248 MPV 10.1 Absolute Nucleated RBC 0.000 Nucleated RBC % (auto) 0.0 Sodium 139 Potassium 3.7 Chloride 107 Carbon Dioxide 20 L Anion Gap 16 BUN 22 H Creatinine 0.77 Estim Creat Clear Calc 87.9 Estimated GFR > 60 POC Glucose 279 H Fasting Glucose 315 H Calcium 8.4 Magnesium 1.7 TSH 0.22 L Assessment and Plan (1) PAF (paroxysmal atrial fibrillation): Status: Acute Plan 62-year-old female presenting with pyelonephritis due to right hydronephrosis due to ureteric stone. Underwent cystoscopy and removal of the stone with stent placement. Asymptomatic from AFib point of view. She has very mild wheezing in upper airway with sometimes the start of congestive heart failure. Be careful with fluid boluses. Recommend loading her with digoxin currently along with the m etoprolol which I think can be increased to 50 mg 3 times a day. I think there is a good possibility she will convert to sinus rhythm as her underlying infection improved. Agree with Deangelo for now. Echocardiography tomorrow. Thank you for allowing me to participate in the care of your patient. Please feel free to contact me if you have any questions. Time Spent With Patient Time: Total time managing care of this patient today ____ minutes. Procedures Date of Service Date of Service: 12/11/22
[2022-12-11] MEDS: Digoxin 0.5 MG/2 ML AMPUL 0.25 MG IVPUSH ×2 (13:53→19:47)
[2022-12-11 15:38] VITALS: BP 162/72; PULSE 116; RESP 20; TEMP 36.8; O2SAT 91
[2022-12-11] MEDS: Metoprolol Tartrate 50 MG TABLET PO ×2 (15:42→19:46)
[2022-12-11] MEDS: 0.9 % Sodium Chloride Flush 3 ML SYRINGE IVFLUSH ×2 (15:43→19:53)
[2022-12-11 16:27] LABS: Free T4 (Free Thyroxine) 1.55 ng/dL (0.71-1.85)
[2022-12-11 16:52] LABS: Glucose, Whole Blood 409 mg/dL (60-115)
[2022-12-11] MEDS: glipiZIDE 10 MG TABLET PO (16:54)
[2022-12-11] MEDS: Magnesium Oxide 400 MG TABLET PO (16:55)
--- NOTE | 2022-12-11 16:56 | PC.NURSE ---
Pt POC 409. Dr Guerra made aware. pt refusing insulin. PO glipizide started.
[2022-12-11 19:26] VITALS: BP 170/76; PULSE 108; RESP 22; TEMP 37.2; O2SAT 94
[2022-12-11 19:27] LABS: Glucose, Whole Blood 416 mg/dL (60-115)
[2022-12-11] MEDS: Insulin Lispro 100 UNIT/ML 3 ML VIAL SUBCUT (19:46)
[2022-12-11] MEDS: Losartan Potassium 25 MG TABLET PO (19:47)
[2022-12-11] MEDS: SITagliptin Phosphate 100 MG TABLET PO (19:47)
[2022-12-11] MEDS: diphenhydrAMINE HCL 25 MG CAPSULE PO (21:31)
[2022-12-11] MEDS: cefTRIAXone sodium 1 GM in 0.9 % Sodium Chloride 50 ML IV (22:21)
[2022-12-12 02:43] VITALS: BP 157/75; PULSE 104; RESP 17; TEMP 37; O2SAT 92
[2022-12-12] MEDS: Omeprazole 40 MG CAPSULE.DR PO (05:41)
[2022-12-12 06:45] LABS: Hematocrit 36.3 % (37.0-47.0); Hemoglobin 11.5 g/dl (12.0-16.0); Mean Corpuscular HGB Conc 31.7 g/dl (31.0-35.0); Mean Corpuscular Hemoglobin 27.3 pg (27.0-33.0); Mean Corpuscular Volume 86.2 fL (80.0-98.0); Mean Platelet Volume 10.6 fL (9.4-12.3); NRBC Pct Auto 0.1 /100WBC (0.0-0.2); Platelet Count 301 X10*3/uL (160-400); Red Blood Count 4.21 X10*6/uL (4.20-5.50); Red Cell Distribution Width 14.2 % (11.0-16.0); White Blood Count 19.3 X10*3/uL (4.8-10.8)
--- NOTE | 2022-12-12 07:00 | CA_ITS ---
Transthoracic Echocardiogram Patient (Last, First, Middle): Antoinette Thomas M Gender: Female Date of : 1960 Age: 62 Procedure Date: 12/12/2022 Procedure Type: Transthoracic Echocardiogram Location: S3E Height: 162.56 cm Weight: 106.6 kg BSA: 2.09 m2 Heart Rate: bpm BP: 170 / 85 mmHg Numerical Control Programmer: ARA Referring MD: Jonas Guerra MD Ex Assistant/Program Director: Laz Pham MD Symptoms: afib Study Quality: Adequate w contrast ECG Rhythm: Atrial Fibrillation Conclusions: - 1. Technically difficult study despite use of contrast agent 2. Low normal LV systolic function with LVEF of 50-55% 3. Limited visualization of cardiac valve with normal cardiac valvular Doppler Findings Procedure Information Contrast agent, definity, is being given per protocol without apparent complications. The quality of the study was technically difficult. The study quality is limited by patients body habitus and limitations of a portable exam. Left Ventricle Normal left ventricular cavity size. There is normal left ventricular wall thickness. The left ventricular systolic function is low normal. The visually estimated ejection fraction is between 50-55%. Diastolic function is indeterminate on the basis of available data. Right Ventricle Normal right ventricular cavity size. Atria The left atrium was not well visualized. Interatrial shunt cannot be excluded. The right atrium was not well visualized. Aortic Valve The aortic valve was not well visualized. There is no aortic valve stenosis. There is no aortic valve regurgitation. Mitral Valve The mitral valve was not well visualized. There is trace mitral valve regurgitation. There is no mitral valve stenosis. Pulmonic Valve The pulmonic valve was not well visualized. Tricuspid Valve Likely normal tricuspid valve structure and function. There is trace tricuspid valve regurgitation. The right ventricular systolic pressure is normal. The right ventricular systolic pressure is 33 mmHg. There is no evidence of pulmonary hypertension. Great Vessels The aorta was not well visualized. The pulmonary artery was not well visualized. Venous The inferior vena cava is normal in size and collapses greater than 50% with inspiration. Pericardium/Pleural The pericardium was not well visualized. Prior Study Comparison No prior study available for comparison. Measurements 2D Linear Measurements IVSd: 1.11 0.6-0.9/0.6-1.0 cm LVIDd: 4.57 3.9-5.3/4.2-5.9 cm LVIDd Index: 2.19 2.4-3.2/2.2-3.1 cm/m2 LVIDs: 3.45 2.0-3.6 cm LVPWd: 0.92 0.7-1.1 cm LA Diam: 3.40 2.7-3.8/3.0-4.0 cm LAIDs Index: 1.63 1.5-2.3 cm/m2 LV Mass: 199.87 67-162/88-224 g LV Mass Index: 95.63 43-95/49-115 g/m2 LVOT Diam: 2.30 3.0+(-)1.3 cm 2D Systolic Function EF 4C: 48.20 >55% EF 2C: 53.10 >55% EF BiP: 49.80 >55% Mitral Valve MV Pk E: 1.46 Aortic Valve AoV Pk Rancho: 1.50 AoV Pk Grad: 9.00 ALONDRA: 3.00 LVOT LVOT Pk Rancho: 1.05 LVOT Mn Rancho: 0.76 LVOT VTI: 0.19 LVOT Pk Grad: 4.00 LVOT Mn Grad: 2.00 LVOT Diam: 2.30 LVOT Area: 4.15 Diastolic Function MV Pk E: 1.46 Right Ventricle TAPSE (mm): 20.30 TVS' Rancho: 8.00 Tricuspid Valve TR Pk Rancho: 2.50 TR Pk Grad: 25.00 RA Press: 8.00 RVSP: 33.00 Great Vessels Aorta Sinus of Valsalva: 3.20 2.0-3.5 cm Ao Asc: 3.70 2.1-3.4 cm Pulmonary Veins Pulm Vein S/D 0.70 Updated in Other Vendor System with Status of Final Laz Pham MD electronically signed on 12/12/2022 4:17:45 PM with status of Final
[2022-12-12 07:09] VITALS: BP 170/85; PULSE 115; RESP 18; TEMP 36.2; O2SAT 93
[2022-12-12 07:12] LABS: Anion Gap 15 (12-20); Blood Urea Nitrogen 25 mg/dL (9-16); Calcium 8.9 mg/dL (8.4-10.2); Carbon Dioxide 24 mmol/L (22-29); Chloride 105 mmol/L (96-108); Creatinine Clr Calc Pharmacy 82.5; Estimated Glomerular Filt Rate > 60; Glucose Fasting 215 mg/dL (60-99); Potassium 4.1 mmol/L (3.3-5.1); Sodium 140 mmol/L (135-145)
[2022-12-12 07:40] LABS: Glucose, Whole Blood 199 mg/dL (60-115)
[2022-12-12] MEDS: Insulin Lispro 100 UNIT/ML 3 ML VIAL SUBCUT ×4 (07:43→20:21)
[2022-12-12] MEDS: glipiZIDE 10 MG TABLET PO ×2 (07:44→16:51)
[2022-12-12] MEDS: ondansetron HCL 4 MG/2 ML VIAL IVPUSH ×2 (07:44→16:52)
[2022-12-12] MEDS: Apixaban 5 MG TABLET PO ×2 (07:44→20:20)
[2022-12-12] MEDS: Cyanocobalamin (Vitamin B-12) 1,000 MCG TABLET 1000 MCG PO (07:45)
[2022-12-12] MEDS: Magnesium Oxide 400 MG TABLET PO ×2 (07:45→16:52)
[2022-12-12] MEDS: Metoprolol Tartrate 50 MG TABLET PO ×4 (07:45→20:21)
[2022-12-12] MEDS: 0.9 % Sodium Chloride Flush 3 ML SYRINGE IVFLUSH ×3 (07:46→20:21)
--- NOTE | 2022-12-12 08:42 | P.PNIM_ITS ---
Subjective Subjective Date of Service: 12/12/22 Interval History: nasuea Physical Exam Vital Signs: Vital Signs: Last Vital Signs Temp 97.2 F 12/12/22 07:09 Pulse 115 H 12/12/22 07:09 Resp 18 12/12/22 07:09 BP 170/85 H 12/12/22 07:09 Pulse Ox 93 12/12/22 07:09 O2 Del Method 12/12/22 07:09 O2 Flow Rate 2 12/12/22 07:09 Oxygen Flow Rate 2 12/10/22 17:41 BMI result Body Mass Index 40.3 GENERAL APPEARANCE: Distress, tachypneic. In that she has been having chills. NECK: no carotid bruit, no jugular venous distention. SKIN: no suspicious lesions, warm and dry. HEART: no murmurs, irregular rate and rhythm. Tachycardic. LUNGS: clear to auscultation bilaterally. ABDOMEN: soft, nontender. EXTREMITIES: no edema. PERIPHERAL PULSES: equal. NEUROLOGIC: No gross deficits, AAO X 3 Objective Data Active Medications Acetaminophen (Acetaminophen 325 Mg Tablet) 650 mg PO Q6H PRN PRN Reason: Pain, Mild (Pain Scale 1-3) Apixaban (Apixaban 5 Mg Tablet) 5 mg PO BID [facility] Last Admin: 12/12/22 07:44 Dose: 5 mg Documented By: DEEPALI Cyanocobalamin (Cyanocobalamin (Vitamin B-12) 1,000 Mcg Tablet) 1,000 mcg PO DAILY [facility] Last Admin: 12/12/22 07:45 Dose: 1,000 mcg Documented By: DEEPALI Dextrose (Dextrose 50 % 25 Gm/50 Ml Syringe) 25 gm IVPUSH Q15M PRN; Protocol PRN Reason: per Hypoglycemia Standing Ord. Glipizide (Glipizide 10 Mg Tablet) 10 mg PO BIDAC [facility] Last Admin: 12/12/22 07:44 Dose: 10 mg Documented By: DEEPALI Glucose (Glucose Gel 15 Gm Gel..Gram.) 15 gm PO Q15M PRN; Protocol PRN Reason: per Hypoglycemia Standing Ord. Ceftriaxone Sodium 1 gm/ (Sodium Chloride) 50 mls @ 100 mls/hr IV Q24H [facility] Last Infusion: 12/11/22 23:07 Dose: 0 mls/hr Documented By: ADINA Insulin Human Lispro (Insulin Lispro 100 Unit/Ml 3 Ml Vial) 0 unit SUBCUT QIDACHS [facility]; Protocol Last Admin: 12/12/22 07:43 Dose: 2 unit Documented By: CHAEMA Losartan Potassium (Losartan Potassium 25 Mg Tablet) 25 mg PO BEDTIME [facility]; Protocol Last Admin: 12/11/22 19:47 Dose: 25 mg Documented By: ADINA Magnesium Oxide (Magnesium Oxide 400 Mg Tablet) 400 mg PO BIDPC [facility] Last Admin: 12/12/22 07:45 Dose: 400 mg Documented By: DEEPALI Melatonin (Melatonin 3 Mg Tablet) 6 mg PO BEDTIME PRN PRN Reason: Insomnia Last Admin: 12/09/22 23:48 Dose: 6 mg Documented By: AFUA Metoprolol Tartrate (Metoprolol Tartrate 50 Mg Tablet) 50 mg PO TID [facility]; Prot ocol Last Admin: 12/12/22 07:45 Dose: 50 mg Documented By: DEEPALI Morphine Sulfate (Morphine Sulfate 4 Mg/Ml Cartridge) 4 mg IVPUSH Q4H PRN; Protocol PRN Reason: Pain, Severe (Pain Scale 7-10) Omeprazole (Omeprazole 40 Mg Capsule.Dr) 40 mg PO DAILY@0630 [facility] Last Admin: 12/12/22 05:41 Dose: 40 mg Documented By: ADINA Ondansetron HCl (Ondansetron Hcl 4 Mg/2 Ml Vial) 4 mg IVPUSH Q8H PRN PRN Reason: Nausea and Vomiting Last Admin: 12/12/22 07:44 Dose: 4 mg Documented By: DEEPALI Pharmacy Consult (Consult Rx Perform Med Rec) 1 each MISCELLANE ONCE PRN PRN Reason: Consult order Sitagliptin Phosphate (Sitagliptin Phosphate 100 Mg Tablet) 100 mg PO BEDTIME [facility] Last Admin: 12/11/22 19:47 Dose: 100 mg Documented By: ADINA Sodium Chloride (0.9 % Sodium Chloride Flush 3 Ml Syringe) [facility] Last Admin: 12/12/22 07:46 Dose: 3 ml Documented By: DEEPALI Tramadol HCl (Tramadol Hcl 50 Mg Tablet) 50 mg PO Q6H PRN PRN Reason: Pain, Moderate (Pain Scale 4-6 Last Admin: 12/10/22 16:27 Dose: 50 mg Documented By: LATOSHA Labs 12/12/22 05:50 12/12/22 05:50 Labs: Laboratory Results - last 24 hr 12/11/22 12/11/22 12/11/22 09:23 09:23 11:19 MCV 84.6 MCH 27.8 MCHC 32.9 RDW 14.4 Plt Count 248 MPV 10.1 Absolute Nucleated RBC 0.000 Nucleated RBC % (auto) 0.0 Anion Gap 16 Estim Creat Clear Calc 87.9 Estimated GFR > 60 POC Glucose 279 H Fasting Glucose 315 H Calcium 8.4 Magnesium 1.7 TSH 0.22 L Free T4 1.55 12/11/22 12/11/22 12/12/22 16:45 19:22 05:50 MCV 86.2 MCH 27.3 MCHC 31.7 RDW 14.2 Plt Count 301 MPV 10.6 Absolute Nucleated RBC 0.020 H Nucleated RBC % (auto) 0.1 Anion Gap Estim Creat Clear Calc Estimated GFR POC Glucose 409 H* 416 H* Fasting Glucose Calcium Magnesium TSH Free T4 12/12/22 12/12/22 05:50 07:21 MCV MCH MCHC RDW Plt Count MPV Absolute Nucleated RBC Nucleated RBC % (auto) Anion Gap 15 Estim Creat Clear Calc 82.5 Estimated GFR > 60 POC Glucose 199 H Fasting Glucose 215 H Calcium 8.9 Magnesium TSH Free T4 Microbiology Microbiology Results: Microbiology 12/09/22 Unknown Gram Stain - Final Kidney Right Routine Culture - Final No growth. 12/08/22 22:53 Urine Culture - Final Urine clean catch - Urine adamson top Proteus mirabilis Assessment and Plan (1) Renal calculi: Status: Acute Plan 62-year-old female with pertinent history of [id number] diabetes mellitus, morbid obesity, who presented to the emergency department for evaluation of abdominal pain. Right-sided hydronephrosis due to right UPJ calculus complicated by sepsis due to acute pylenoephritis cultures negative, continue rocephin day 4 s/p cystoscopy right retrograde,? aspiration right renal pelvis, right stent pl acement 12/09/22 new onset afib with rvr eliquis metoprolol 50 tid s/p dig load check echo cardio following hypomagnesemia replace monitor DM with hyperglycemia insulin morbid obesity weight loss recommended acute hypoxic respiraotry failure present on arrival ?poor inspiratory effort/obesity restriction wean o2 as tolerated DVT prophylaxis:? gladis Full code reason for continued hospitalization: rate control Time Spent With Patient Time: Total time managing care of this patient today ____ minutes. Quality Stroke Does the patient have a stroke diagnosis?: No VTE Prior VTE?: No VTE Risk Level:: Medical - moderate - high VTE Device Contraindication: N/A - Device Ordered VTE Drug Contraindication: Treatment Not Indicated
--- NOTE | 2022-12-12 10:51 | P.PNCA_ITS ---
Subjective Subjective Date of Service: 12/12/22 Principal diagnosis: Atrial fibrillation Interval history: Patient remains in atrial fibrillation rapid ventricular response. Continues to have no symptoms. No heart failure symptoms. No palpitation irregular heart beat. Blood pressure is elevated. She denies any prior history of elevated blood pressures. Review of Systems Constitutional: Reports no additional constitutional complaints Cardiovascular: Reports no additional cardiovascular complaints Gastrointestinal: Reports no additional gastrointestinal complaints Reports system reviewed and no additional complaints, except as documented Physical Exam Vital Signs: Last Vital Signs Temp 97.2 F 12/12/22 07:09 Pulse 115 H 12/12/22 07:09 Resp 18 12/12/22 07:09 BP 170/85 H 12/12/22 07:09 Pulse Ox 93 12/12/22 07:09 O2 Del Method 12/12/22 07:09 O2 Flow Rate 2 12/12/22 07:09 Oxygen Flow Rate 2 12/10/22 17:41 BMI result Body Mass Index 40.3 GENERAL APPEARANCE: Distress, tachypneic. In that she has been having chills. NECK: no carotid bruit, no jugular venous distention. SKIN: no suspicious lesions, warm and dry. HEART: no murmurs, irregular rate and rhythm. Tachycardic. LUNGS: clear to auscultation bilaterally. ABDOMEN: soft, nontender. EXTREMITIES: no edema. PERIPHERAL PULSES: equal. NEUROLOGIC: No gross deficits, AAO X 3 Objective Labs and Meds 12/12/22 05:50 12/12/22 05:50 Lab results: Laboratory Results - last 24 hr 12/11/22 12/11/22 12/11/22 09:23 11:19 16:45 WBC RBC Hgb Hct MCV MCH MCHC RDW Plt Count MPV Absolute Nucleated RBC Nucleated RBC % (auto) Sodium Potassium Chloride Carbon Dioxide Anion Gap BUN Creatinine Estim Creat Clear Calc Estimated GFR POC Glucose 279 H 409 H* Fasting Glucose Calcium Magnesium 1.7 TSH 0.22 L Free T4 1.55 12/11/22 12/12/22 12/12/22 19:22 05:50 05:50 WBC 19.3 H RBC 4.21 Hgb 11.5 L Hct 36.3 L MCV 86.2 MCH 27.3 MCHC 31.7 RDW 14.2 Plt Count 301 MPV 10.6 Absolute Nucleated RBC 0.020 H Nucleated RBC % (auto) 0.1 Sodium 140 Potassium 4.1 Chloride 105 Carbon Dioxide 24 Anion Gap 15 BUN 25 H Creatinine 0.82 Estim Creat Clear Calc 82.5 Estimated GFR > 60 POC Glucose 416 H* Fasting Glucose 215 H Calcium 8.9 Magnesium TSH Free T4 12/12/22 07:21 WBC RBC Hgb Hct MCV MCH MCHC RDW Plt Count MPV Absolute Nucleated RBC Nucleated RBC % (auto) Sodium Potassium Chloride Carbon Dioxide Anion Gap BUN Creatinine Estim Creat Clear Calc Estimated GFR POC Glucose 199 H Fasting Glucose Calcium Magnesium TSH Free T4 Progress Note: A&P Assessment and plan (1) Atrial fibrillation with rapid ventricular response: Status: Acute Assessment and Plan: Persistent atrial fibrillation rapid ventricular response in this middle-aged woman with history of diabetes and obesity and not elevated blood pressure. Remains elevated heart rate. Will increase metoprolol to 50 q.6 hours and add digoxin 0.25 mg to her regimen. If her rate remains difficult control and/or has systolic dysfunction by echocardiogram will pursue LLOYD guided cardioversion. Otherwise pursue rate control along with oral anticoagulation with Eliquis. Details of this management plan was discussed with her. She understands agrees. Most likely will require outpatient sleep study as well to evaluate for obstructive sleep apnea. Will continue to follow with you. Time Spent With Patient Time: Total time managing care of this patient today ____ minutes. Progress Note: Quality Stroke Does the patient have a stroke diagnosis?: No Procedures Date of Service Date of Service: 12/12/22
[2022-12-12 11:29] LABS: Glucose, Whole Blood 280 mg/dL (60-115)
[2022-12-12 12:01] VITALS: BP 144/76; PULSE 99; RESP 18; TEMP 36.9; O2SAT 96
[2022-12-12] MEDS: Metoclopramide HCl 10 MG/2 ML VIAL 5 MG IVPUSH (12:17)
[2022-12-12 15:20] VITALS: BP 141/75; PULSE 87; RESP 17; TEMP 36.7; O2SAT 94
[2022-12-12 16:43] LABS: Glucose, Whole Blood 222 mg/dL (60-115)
[2022-12-12 19:42] VITALS: BP 160/73; PULSE 92; RESP 18; TEMP 37.6; O2SAT 95
[2022-12-12 19:48] LABS: Glucose, Whole Blood 205 mg/dL (60-115)
[2022-12-12] MEDS: Losartan Potassium 25 MG TABLET PO (20:20)
[2022-12-12] MEDS: SITagliptin Phosphate 100 MG TABLET PO (20:21)
[2022-12-12] MEDS: cefTRIAXone sodium 1 GM in 0.9 % Sodium Chloride 50 ML IV (23:45)
[2022-12-13] VITALS (8 sets, daily range): BP systolic 142–170; BP diastolic 63–74; PULSE 73–108; RESP 17–20; TEMP 36.5–37.1; O2SAT 86–95
--- NOTE | 2022-12-13 02:16 | PC.NURSE ---
Assumed care aroun 12mn, pt is alert and oriented, denies any pain , c/o SOB, LSdim throughout with mild exp wheeze, pt claimed she gets SOB whenever she feels anxious, pt refused anything for his anxiety, O2 sats = 84%-86% RA, O2 at 2L/min via NC placed, pt verbalized relief after.
[2022-12-13] MEDS: Omeprazole 40 MG CAPSULE.DR PO (06:20)
[2022-12-13 06:34] LABS: Hematocrit 36.2 % (37.0-47.0); Hemoglobin 11.7 g/dl (12.0-16.0); Mean Corpuscular HGB Conc 32.3 g/dl (31.0-35.0); Mean Corpuscular Hemoglobin 27.7 pg (27.0-33.0); Mean Corpuscular Volume 85.6 fL (80.0-98.0); Mean Platelet Volume 11.3 fL (9.4-12.3); NRBC Pct Auto 0.2 /100WBC (0.0-0.2); Platelet Count 281 X10*3/uL (160-400); Red Blood Count 4.23 X10*6/uL (4.20-5.50); Red Cell Distribution Width 14.4 % (11.0-16.0); White Blood Count 18.7 X10*3/uL (4.8-10.8)
[2022-12-13 07:04] LABS: Glucose, Whole Blood 201 mg/dL (60-115)
[2022-12-13] MEDS: Digoxin 0.25 MG TABLET PO (08:05)
[2022-12-13] MEDS: glipiZIDE 10 MG TABLET PO ×2 (08:05→16:51)
[2022-12-13] MEDS: Metoprolol Tartrate 50 MG TABLET PO ×4 (08:05→20:33)
[2022-12-13] MEDS: Cyanocobalamin (Vitamin B-12) 1,000 MCG TABLET 1000 MCG PO (08:05)
[2022-12-13] MEDS: Magnesium Oxide 400 MG TABLET PO ×2 (08:05→16:50)
[2022-12-13] MEDS: ondansetron HCL 4 MG/2 ML VIAL IVPUSH ×2 (08:05→16:50)
[2022-12-13] MEDS: Apixaban 5 MG TABLET PO ×2 (08:05→20:33)
[2022-12-13] MEDS: 0.9 % Sodium Chloride Flush 3 ML SYRINGE IVFLUSH ×3 (08:05→23:45)
[2022-12-13] MEDS: Insulin Lispro 100 UNIT/ML 3 ML VIAL SUBCUT ×4 (08:06→20:33)
--- NOTE | 2022-12-13 08:30 | HO.PM.IMPN ---
Subjective Subjective Date of Service: 12/13/22 Interval History: mable gao Physical Exam Vital Signs: Vital Signs: Last Vital Signs Temp 97.7 F 12/13/22 06:49 Pulse 108 H 12/13/22 06:49 Resp 18 12/13/22 06:49 BP 158/74 H 12/13/22 06:49 Pulse Ox 91 L 12/13/22 06:49 O2 Del Method 12/13/22 06:49 O2 Flow Rate 2 12/13/22 03:02 Oxygen Flow Rate 2 12/10/22 17:41 BMI result Body Mass Index 40.3 GENERAL APPEARANCE: Distress, tachypneic. In that she has been having chills. NECK: no carotid bruit, no jugular venous distention. SKIN: no suspicious lesions, warm and dry. HEART: no murmurs, irregular rate and rhythm. Tachycardic. LUNGS: clear to auscultation bilaterally. ABDOMEN: soft, nontender. EXTREMITIES: no edema. PERIPHERAL PULSES: equal. NEUROLOGIC: No gross deficits, AAO X 3 Objective Data Active Medications Acetaminophen (Acetaminophen 325 Mg Tablet) 650 mg PO Q6H PRN PRN Reason: Pain, Mild (Pain Scale 1-3) Apixaban (Apixaban 5 Mg Tablet) 5 mg PO BID [facility] Last Admin: 12/13/22 08:05 Dose: 5 mg Documented By: CHAEMA Cyanocobalamin (Cyanocobalamin (Vitamin B-12) 1,000 Mcg Tablet) 1,000 mcg PO DAILY [facility] Last Admin: 12/13/22 08:05 Dose: 1,000 mcg Documented By: CHAEMA Dextrose (Dextrose 50 % 25 Gm/50 Ml Syringe) 25 gm IVPUSH Q15M PRN; Protocol PRN Reason: per Hypoglycemia Standing Ord. Digoxin (Digoxin 0.25 Mg Tablet) 0.25 mg PO DAILY [facility] Last Admin: 12/13/22 08:05 Dose: 0.25 mg Documented By: COTEMA Glipizide (Glipizide 10 Mg Tablet) 10 mg PO BIDAC [facility] Last Admin: 12/13/22 08:05 Dose: 10 mg Documented By: COTEMA Glucose (Glucose Gel 15 Gm Gel..Gram.) 15 gm PO Q15M PRN; Protocol PRN Reason: per Hypoglycemia Standing Ord. Ceftriaxone Sodium 1 gm/ (Sodium Chloride) 50 mls @ 100 mls/hr IV Q24H [facility] Last Infusion: 12/13/22 00:51 Dose: 0 mls/hr Documented By: CASTILM Insulin Human Lispro (Insulin Lispro 100 Unit/Ml 3 Ml Vial) 0 unit SUBCUT QIDACHS [facility]; Protocol Last Admin: 12/13/22 08:06 Dose: 4 unit Documented By: COTEMA Losartan Potassium (Losartan Potassium 25 Mg Tablet) 25 mg PO BEDTIME [facility]; Protocol Last Admin: 12/12/22 20:20 Dose: 25 mg Documented By: ADINA Magnesium Oxide (Magnesium Oxide 400 Mg Tablet) 400 mg PO BIDPC [facility] Last Admin: 12/13/22 08:05 Dose: 400 mg Documented By: COTEMA Melatonin (Melatonin 3 Mg Tablet) 6 mg PO BEDTIME PRN PRN Reason: Insomnia Last Admin: 12/09/22 23:48 Dose: 6 mg Documented By: AFUA Metoprolol Tartrate (Metoprolol Tartrate 50 Mg Tablet) 50 mg PO QID [facility]; Protocol Last Admin: 12/13/22 08:05 Dose: 50 mg Documented By: CHAEMA Morphine Sulfate (Morphine Sulfate 4 Mg/Ml Cartridge) 4 mg IVPUSH Q4H PRN; Protocol PRN Reason: Pain, Severe (Pain Scale 7-10) Omeprazole (Omeprazole 40 Mg Capsule.Dr) 40 mg PO DAILY@0630 [facility] Last Admin: 12/13/22 06:20 Dose: 40 mg Documented By: ADINA Ondansetron HCl (Ondansetron Hcl 4 Mg/2 Ml Vial) 4 mg IVPUSH Q8H PRN PRN Reason: Nausea and Vomiting Last Admin: 12/13/22 08:05 Dose: 4 mg Documented By: DEEPALI Pharmacy Consult (Consult Rx Perform Med Rec) 1 each MISCELLANE ONCE PRN PRN Reason: Consult order Sitagliptin Phosphate (Sitagliptin Phosphate 100 Mg Tablet) 100 mg PO BEDTIME [facility] Last Admin: 12/12/22 20:21 Dose: 100 mg Documented By: ADINA Sodium Chloride (0.9 % Sodium Chloride Flush 3 Ml Syringe) 3 ml IVFLUSH QSHIFT [facility] Last Admin: 12/13/22 08:05 Dose: 3 ml Documented By: HO.COTEMA Tramadol HCl (Tramadol Hcl 50 Mg Tablet) 50 mg PO Q6H PRN PRN Reason: Pain, Moderate (Pain Scale 4-6 Last Admin: 12/10/22 16:27 Dose: 50 mg Documented By: LATOSHA Labs 12/13/22 06:13 12/12/22 05:50 Labs: Laboratory Results - last 24 hr 12/12/22 12/12/22 12/12/22 11:25 16:38 19:40 MCV MCH MCHC RDW Plt Count MPV Absolute Nucleated RBC Nucleated RBC % (auto) POC Glucose 280 H 222 H 205 H 12/13/22 12/13/22 06:13 06:51 MCV 85.6 MCH 27.7 MCHC 32.3 RDW 14.4 Plt Count 281 MPV 11.3 Absolute Nucleated RBC 0.040 H Nucleated RBC % (auto) 0.2 POC Glucose 201 H Assessment and Plan (1) Renal calculi: Status: Acute Plan 62-year-old female with pertinent history of [id number] diabetes mellitus, morbid obesity, who presented to the emergency department for evaluation of abdominal pain. Right-sided hydronephrosis due to right UPJ calculus complicated by sepsis due to acute pylenoephritis cultures negative, continue rocephin day 5 s/p cystoscopy right retrograde,? aspiration right renal pelvis, right stent placement 12/09/22 new onset afib with rvr still in low 100s eliquis metoprolol 50 qid s/p dig load, now 0.25mg daily check echo cardio following, ?brenda/cv hypomagnesemia replace monitor DM with hyperglycemia insulin morbid obesity weight loss recommended acute hypoxic respiraotry failure present on arrival ?poor inspiratory effort/obesity restriction now on room air DVT prophylaxis:? eliquis Full code reason for continued hospitalization: still in rvr Time Spent With Patient Time: Total time managing care of this patient today ____ minutes. Quality Stroke Does the patient have a stroke diagnosis?: No VTE Prior VTE?: No VTE Risk Level:: Medical - moderate - high VTE Device Contraindication: N/A - Device Ordered VTE Drug Contraindication: Treatment Not Indicated
[2022-12-13 08:45] LABS: Anion Gap 19 (12-20)
[2022-12-13 08:54] LABS: Blood Urea Nitrogen 19 mg/dL (9-16); Calcium 9.1 mg/dL (8.4-10.2); Carbon Dioxide 23 mmol/L (22-29); Chloride 103 mmol/L (96-108); Creatinine Clr Calc Pharmacy 87.9; Estimated Glomerular Filt Rate > 60; Glucose Fasting 209 mg/dL (60-99); Magnesium 1.6 mg/dL (1.6-2.6); Potassium 4.1 mmol/L (3.3-5.1); Sodium 141 mmol/L (135-145)
[2022-12-13 11:15] LABS: Glucose, Whole Blood 356 mg/dL (60-115)
--- NOTE | 2022-12-13 13:31 | PM.PNCARD ---
Subjective Subjective Date of Service: 12/13/22 Principal diagnosis: Atrial fibrillation Interval history: Patient remains in atrial fibrillation borderline rate control. Echocardiogram shows low normal LVEF. No other symptoms of heart failure. Blood pressure is still elevated. Review of Systems Constitutional: Reports no additional constitutional complaints Eyes: Reports no additional eye complaints Cardiovascular: Denies chest pain, Denies lightheadedness, Denies Loss of Consciousness, Denies palpitations, Reports dyspnea on exertion and Denies paroxysmal nocturnal dyspnea Respiratory: Reports no additional respiratory complaints and Reports dyspnea on exertion Genitourinary: Reports no additional female genitourinary complaints Musculoskeletal: Reports no additional musculoskeletal complaints Skin/Breast: Reports system reviewed and no additional complaints, except as docu Psychiatric: Reports no additional psychiatric complaints Endocrine: Denies palpitations Allergic/Immunologic: Reports no additional allergic/immunologic complaints Physical Exam Vital Signs: Last Vital Signs Temp 98.5 F 12/13/22 11:19 Pulse 97 12/13/22 11:19 Resp 18 12/13/22 11:19 BP 142/63 H 12/13/22 11:19 Pulse Ox 93 12/13/22 11:19 O2 Del Method 12/13/22 11:19 O2 Flow Rate 2 12/13/22 03:02 Oxygen Flow Rate 2 12/10/22 17:41 BMI result Body Mass Index 40.3 GENERAL APPEARANCE: Distress, tachypneic. In that she has been having chills. NECK: no carotid bruit, no jugular venous distention. SKIN: no suspicious lesions, warm and dry. HEART: no murmurs, irregular rate and rhythm. Tachycardic. LUNGS: clear to auscultation bilaterally. ABDOMEN: soft, nontender. EXTREMITIES: no edema. PERIPHERAL PULSES: equal. NEUROLOGIC: No gross deficits, AAO X 3 Objective Labs and Meds 12/13/22 06:13 12/13/22 07:16 Lab results: Laboratory Results - last 24 hr 12/12/22 12/12/22 12/13/22 16:38 19:40 06:13 WBC 18.7 H RBC 4.23 Hgb 11.7 L Hct 36.2 L MCV 85.6 MCH 27.7 MCHC 32.3 RDW 14.4 Plt Count 281 MPV 11.3 Absolute Nucleated RBC 0.040 H Nucleated RBC % (auto) 0.2 Sodium Potassium Chloride Carbon Dioxide Anion Gap BUN Creatinine Estim Creat Clear Calc Estimated GFR POC Glucose 222 H 205 H Fasting Glucose Calcium Magnesium 12/13/22 12/13/22 12/13/22 06:51 07:16 11:12 WBC RBC Hgb Hct MCV MCH MCHC RDW Plt Count MPV Absolute Nucleated RBC Nucleated RBC % (auto) Sodium 141 Potassium 4.1 Chloride 103 Carbon Dioxide 23 Anion Gap 19 BUN 19 H Creatinine 0.77 Estim Creat Clear Calc 87.9 Estimated GFR > 60 POC Glucose 201 H 356 H* Fasting Glucose 209 H Calcium 9.1 Magnesium 1.6 Progress Note: A&P Assessment and plan (1) Atrial fibrillation with rapid ventricular response: Status: Acute Assessment and Plan: Atrial fibrillation with difficult control rate with borderline LV systolic function. Currently on metoprolol and digoxin. Continue the same. Continue full oral anticoagulation. I think she will benefit from rhythm control approach on a sooner basis. Discussed with her about LLOYD guided cardioversion. Discuss risks and benefits of both procedures including LLOYD including esophageal trauma as well as of cardioversion including stroke risk. She understands and agrees. Will pursue LLOYD guided cardioversion tomorrow. Keep her NPO past midnight. Continue full oral anticoagulation with Eliquis. Will continue to follow with you Time Spent With Patient Time: Total time managing care of this patient today ____ minutes. Progress Note: Quality Stroke Does the patient have a stroke diagnosis?: No Procedures Date of Service Date of Service: 12/13/22
--- NOTE | 2022-12-13 14:14 | MHC.CM.PN ---
Pt remains acute and is not ready to d/c today. D/C plan is for a return to home without additional services needed.
[2022-12-13 16:17] LABS: Glucose, Whole Blood 187 mg/dL (60-115)
[2022-12-13 19:35] LABS: Glucose, Whole Blood 199 mg/dL (60-115)
[2022-12-13] MEDS: Losartan Potassium 25 MG TABLET PO (20:33)
[2022-12-13] MEDS: SITagliptin Phosphate 100 MG TABLET PO (20:33)
[2022-12-13] MEDS: cefTRIAXone sodium 1 GM in 0.9 % Sodium Chloride 50 ML IV (23:45)
[2022-12-14] VITALS (11 sets, daily range): BP systolic 104–169; BP diastolic 40–75; PULSE 70–94; RESP 18–20; TEMP 35.7–37.1; O2SAT 91–100
[2022-12-14] MEDS: ondansetron HCL 4 MG/2 ML VIAL IVPUSH ×3 (00:04→17:08)
[2022-12-14] MEDS: Melatonin 3 MG TABLET 6 MG PO ×2 (00:04→21:16)
[2022-12-14] MEDS: Omeprazole 40 MG CAPSULE.DR PO (06:39)
[2022-12-14 07:24] LABS: Hemoglobin 11.6 g/dl (12.0-16.0); Mean Corpuscular HGB Conc 32.2 g/dl (31.0-35.0); Mean Corpuscular Hemoglobin 27.4 pg (27.0-33.0); Mean Corpuscular Volume 84.9 fL (80.0-98.0); Mean Platelet Volume 9.9 fL (9.4-12.3); NRBC Pct Auto 0.1 /100WBC (0.0-0.2); Platelet Count 422 X10*3/uL (160-400); Red Blood Count 4.24 X10*6/uL (4.20-5.50); Red Cell Distribution Width 14.3 % (11.0-16.0)
[2022-12-14 07:34] LABS: Glucose, Whole Blood 207 mg/dL (60-115)
[2022-12-14 07:40] LABS: Anion Gap 16 (12-20); Blood Urea Nitrogen 17 mg/dL (9-16); Calcium 8.5 mg/dL (8.4-10.2); Carbon Dioxide 26 mmol/L (22-29); Chloride 102 mmol/L (96-108); Creatinine Clr Calc Pharmacy 87.9; Estimated Glomerular Filt Rate > 60; Glucose Fasting 236 mg/dL (60-99); Potassium 4.1 mmol/L (3.3-5.1); Sodium 140 mmol/L (135-145)
[2022-12-14] MEDS: Metoprolol Tartrate 50 MG TABLET PO ×3 (07:50→21:17)
[2022-12-14] MEDS: Cyanocobalamin (Vitamin B-12) 1,000 MCG TABLET 1000 MCG PO (07:51)
[2022-12-14] MEDS: Magnesium Oxide 400 MG TABLET PO ×2 (07:51→17:01)
[2022-12-14] MEDS: 0.9 % Sodium Chloride Flush 3 ML SYRINGE IVFLUSH ×2 (07:51→17:01)
[2022-12-14] MEDS: glipiZIDE 10 MG TABLET PO ×2 (07:51→17:01)
[2022-12-14] MEDS: Apixaban 5 MG TABLET PO ×2 (07:51→21:17)
[2022-12-14] MEDS: Digoxin 0.25 MG TABLET PO (07:51)
[2022-12-14 11:14] LABS: Glucose, Whole Blood 200 mg/dL (60-115)
--- NOTE | 2022-12-14 12:16 | MHC.CM.PN ---
Per ROUNDS discussion, Patient is not yet medically cleared for dc (LLOYD);home is the goal and CM will continue to follow.
--- NOTE | 2022-12-14 12:45 | P.CONAN_ITS ---
[facility] Active Problems Active Problems: All Active Problems (Updated 12/12/22 @ 10:52 by Laz Pham MD) Atrial fibrillation with rapid ventricular response (Acute) PAF (paroxysmal atrial fibrillation) (Acute) Renal calculi (Acute) Hydronephrosis (Acute) Diabetes (Acute) Past Medical History Medical History Diabetes Renal insufficiency Surgical History History of Problems with Anesthesia: No Social History Social History Household Members: Family Housing: Apartment Do you presently have visiting nurse or other home services: Yes Patient Tobacco Use Status: Never used Tobacco service: No Current occupational status: employed Meds Allergies Allergy/AdvReac Type Severity Reaction Status Date / Time Penicillins [PCN] Allergy Hives Verified 12/08/22 20:03 codeine AdvReac Nausea Verified 12/08/22 20:03 metformin AdvReac Unknown Verified 12/08/22 20:03 Active Medications: Current Medications Acetaminophen (Acetaminophen 325 Mg Tablet) 650 mg PO Q6H PRN PRN Reason: Pain, Mild (Pain Scale 1-3) Apixaban (Apixaban 5 Mg Tablet) 5 mg PO BID [facility] Last Admin: 12/14/22 07:51 Dose: 5 mg Cyanocobalamin (Cyanocobalamin (Vitamin B-12) 1,000 Mcg Tablet) 1,000 mcg PO DAILY [facility] Last Admin: 12/14/22 07:51 Dose: 1,000 mcg Dextrose (Dextrose 50 % 25 Gm/50 Ml Syringe) 25 gm IVPUSH Q15M PRN; Protocol PRN Reason: per Hypoglycemia Standing Ord. Digoxin (Digoxin 0.25 Mg Tablet) 0.25 mg PO DAILY [facility] Last Admin: 12/14/22 07:51 Dose: 0.25 mg Glipizide (Glipizide 10 Mg Tablet) 10 mg PO BIDAC [facility] Last Admin: 12/14/22 07:51 Dose: 10 mg Glucose (Glucose Gel 15 Gm Gel..Gram.) 15 gm PO Q15M PRN; Protocol PRN Reason: per Hypoglycemia Standing Ord. Ceftriaxone Sodium 1 gm/ (Sodium Chloride) 50 mls @ 100 mls/hr IV Q24H [facility] Last Infusion: 12/14/22 00:48 Dose: Infused Insulin Human Lispro (Insulin Lispro 100 Unit/Ml 3 Ml Vial) 0 unit SUBCUT QIDACHS [facility]; Protocol Last Admin: 12/14/22 07:56 Dose: Not Given Losartan Potassium (Losartan Potassium 25 Mg Tablet) 25 mg PO BEDTIME [facility]; Protocol Last Admin: 12/13/22 20:33 Dose: 25 mg Magnesium Oxide (Magnesium Oxide 400 Mg Tablet) 400 mg PO BIDPC [facility] Last Admin: 12/14/22 07:51 Dose: 400 mg Melatonin (Melatonin 3 Mg Tablet) 6 mg PO BEDTIME PRN PRN Reason: Insomnia Last Admin: 12/14/22 00:04 Dose: 6 mg Metoprolol Tartrate (Metoprolol Tartrate 50 Mg Tablet) 50 mg PO QID [facility]; Protocol Last Admin: 12/14/22 07:50 Dose: 50 mg Omeprazole (Omeprazole 40 Mg Capsule.Dr) 40 mg PO DAILY@0630 [facility] Last Admin: 12/14/22 06:39 Dose: 40 mg Ondansetron HCl (Ondansetron Hcl 4 Mg/2 Ml Vial) 4 mg IVPUSH Q8H PRN PRN Reason: Nausea and Vomiting Last Admin: 12/14/22 00:04 Dose: 4 mg Pharmacy Consult (Consult Rx Perform Med Rec) 1 each MISCELLANE ONCE PRN PRN Reason: Consult order Sitagliptin Phosphate (Sitagliptin Phosphate 100 Mg Tablet) 100 mg PO BEDTIME [facility] Last Admin: 12/13/22 20:33 Dose: 100 mg Sodium Chloride (0.9 % Sodium Chloride Flush 3 Ml Syringe) 3 ml IVFLUSH QSHIFT [facility] Last Admin: 12/14/22 07:51 Dose: 3 ml Tramadol HCl (Tramadol Hcl 50 Mg Tablet) 50 mg PO Q6H PRN PRN Reason: Pain, Moderate (Pain Scale 4-6 Last Admin: 12/10/22 16:27 Dose: 50 mg Home Medications Medication Instructions Recorded Confirmed Last Taken Type aspirin 81 mg tablet,delayed 81 mg PO BEDTIME 12/09/22 12/09/22 12/06/22 History release coenzyme Q10 10 mg capsule 10 mg PO BEDTIME 12/09/22 12/09/22 12/06/22 History cyanocobalamin (vitamin B-12) 1,000 mcg PO DAILY 12/09/22 12/09/22 12/06/22 History 1,000 mcg tablet gabapentin 100 mg capsule 1 - 3 cap PO BEDTIME PRN insomnia 12/09/22 12/09/22 12/06/22 History glipizide 5 mg tablet 2 tab PO BIDAC 12/09/22 12/09/22 12/06/22 History ibuprofen 800 mg tablet 1 tab PO TID PRN Pain 12/09/22 12/09/22 12/06/22 History losartan 25 mg tablet 1 tab PO BEDTIME 12/09/22 12/09/22 12/06/22 History melatonin 3 mg tablet 3 mg PO BEDTIME 12/09/22 12/09/22 12/06/22 History sitagliptin phosphate 100 mg 1 tab PO BEDTIME 12/09/22 12/09/22 12/06/22 History tablet (Januvia) Exam Exam Date and Time: December 14, 2022 1245 Height,Weight and Vital Signs: Height 5 ft 4 in Weight 106.594 kg Last Vital Signs Temp 98.2 F 12/14/22 07:48 Pulse 94 12/14/22 07:48 Resp 18 12/14/22 07:48 BP 156/72 H 12/14/22 07:48 Pulse Ox 92 12/14/22 07:48 O2 Del Method 12/14/22 07:48 O2 Flow Rate 2 12/13/22 03:02 Oxygen Flow Rate 2 12/10/22 17:41 Pertinent Lab Results Pertinent Lab Results: Laboratory Tests 12/08/22 12/08/22 12/08/22 20:56 20:56 22:27 WBC 21.4 H RBC 4.74 Hgb 13.0 Hct 39.9 MCV 84.2 MCH 27.4 MCHC 32.6 RDW 13.4 Plt Count 231 MPV 9.1 L Immature Gran % (Auto) 0.7 H Neut % (Auto) 90.7 H Lymph % (Auto) 2.2 L Daniels % (Auto) 6.2 Eos % (Auto) 0.0 Baso % (Auto) 0.2 Lymph # (Auto) 0.5 L Daniels # (Auto) 1.3 H Eos # (Auto) 0.0 Baso # (Auto) 0.0 Abs Immat Gran (auto) 0.15 H Absolute Neuts (auto) 19.4 H Absolute Nucleated RBC 0.000 Nucleated RBC % (auto) 0.0 Smear Tech's Comments VERIFIED Sodium 136 Potassium 3.6 Chloride 102 Carbon Dioxide 23 Anion Gap 15 BUN 33 H Creatinine 1.15 Estim Creat Clear Calc 58.8 Estimated GFR 48 POC Glucose Random Glucose 236 H Fasting Glucose Lactic Acid Calcium 8.9 Magnesium TSH Free T4 Urine Color Yellow Urine Appearance Turbid Urine pH 6.5 Ur Specific Ninety [place] 1.020 Urine Protein 300 (3+) H Urine Glucose (UA) 100 H Urine Ketones 40 Urine Blood Moderate (2+) H Urine Nitrite Negative Ur Leukocyte Esterase Large (3+) H Urine RBC 11-20 H Urine WBC >50 H Ur Squamous Epith Cells 3-5 Urine Bacteria 4+ Hyaline Casts 3-5 COVID-19 ([facility]) [employer] 12/09/22 12/09/22 12/09/22 01:04 04:22 04:37 WBC 16.5 H RBC 4.30 Hgb 12.1 Hct 36.7 L MCV 85.3 MCH 28.1 MCHC 33.0 RDW 13.6 Plt Count 207 MPV 9.6 Immature Gran % (Auto) 1.2 H Neut % (Auto) 85.7 H Lymph % (Auto) 3.2 L Daniels % (Auto) 6.6 Eos % (Auto) 3.0 Baso % (Auto) 0.3 Lymph # (Auto) 0.5 L Daniels # (Auto) 1.1 Eos # (Auto) 0.5 H Baso # (Auto) 0.1 Abs Immat Gran (auto) 0.20 H Absolute Neuts (auto) 14.1 H Absolute Nucleated RBC 0.000 Nucleated RBC % (auto) 0.0 Smear Tech's Comments Sodium Potassium Chloride Carbon Dioxide Anion Gap BUN Creatinine Estim Creat Clear Calc Estimated GFR POC Glucose Random Glucose Fasting Glucose Lactic Acid 1.4 Calcium Magnesium TSH Free T4 Urine Color Urine Appearance Urine pH Ur Specific Ninety Six Urine Protein Urine Glucose (UA) Urine Ketones Urine Blood Urine Nitrite Ur Leukocyte Esterase Urine RBC Urine WBC Ur Squamous Epith Cells Urine Bacteria Hyaline Casts COVID-19 ([facility]) Negative COVID-19 [employer] See Note 12/09/22 12/09/22 12/09/22 04:37 07:05 11:42 WBC RBC Hgb Hct MCV MCH MCHC RDW Plt Count MPV Immature Gran % (Auto) Neut % (Auto) Lymph % (Auto) Daniels % (Auto) Eos % (Auto) Baso % (Auto) Lymph # (Auto) Daniels # (Auto) Eos # (Auto) Baso # (Auto) Abs Immat Gran (auto) Absolute Neuts (auto) Absolute Nucleated RBC Nucleated RBC % (auto) Smear Tech's Comments Sodium 137 Potassium 3.7 Chloride 108 Carbon Dioxide 17 L Anion Gap 16 BUN 32 H Creatinine 0.83 Estim Creat Clear Calc 81.5 Estimated GFR > 60 POC Glucose 208 H 244 H Random Glucose 224 H Fasting Glucose Lactic Acid Calcium 8.0 L D Magnesium TSH Free T4 Urine Color Urine Appearance Urine pH Ur Specific Ninety Six Urine Protein Urine Glucose (UA) Urine Ketones Urine Blood Urine Nitrite Ur Leukocyte Esterase Urine RBC Urine WBC Ur Squamous Epith Cells Urine Bacteria Hyaline Casts COVID-19 ([facility]) [employer] 12/09/22 12/09/22 12/09/22 12:00 15:45 20:07 WBC RBC Hgb Hct MCV MCH MCHC RDW Plt Count MPV Immature Gran % (Auto) Neut % (Auto) Lymph % (Auto) Daniels % (Auto) Eos % (Auto) Baso % (Auto) Lymph # (Auto) Daniels # (Auto) Eos # (Auto) Baso # (Auto) Abs Immat Gran (auto) Absolute Neuts (auto) Absolute Nucleated RBC Nucleated RBC % (auto) Smear Tech's Comments Sodium Potassium Chloride Carbon Dioxide Anion Gap BUN Creatinine Estim Creat Clear Calc Estimated GFR POC Glucose 230 H 199 H 227 H Random Glucose Fasting Glucose Lactic Acid Calcium Magnesium TSH Free T4 Urine Color Urine Appearance Urine pH Ur Specific Ninety Six Urine Protein Urine Glucose (UA) Urine Ketones Urine Blood Urine Nitrite Ur Leukocyte Esterase Urine RBC Urine WBC Ur Squamous Epith Cells Urine Bacteria Hyaline Casts COVID-19 ([facility]) [employer] 12/10/22 12/10/22 12/10/22 00:29 07:33 07:50 WBC 15.1 H RBC 4.20 Hgb 11.5 L Hct 36.6 L MCV 87.1 MCH 27.4 MCHC 31.4 RDW 14.3 Plt Count 235 MPV 10.1 Immature Gran % (Auto) Neut % (Auto) Lymph % (Auto) Daniels % (Auto) Eos % (Auto) Baso % (Auto) Lymph # (Auto) Daniels # (Auto) Eos # (Auto) Baso # (Auto) Abs Immat Gran (auto) Absolute Neuts (auto) Absolute Nucleated RBC 0.000 Nucleated RBC % (auto) 0.0 Smear Tech's Comments Sodium Potassium Chloride Carbon Dioxide Anion Gap BUN Creatinine Estim Creat Clear Calc Estimated GFR POC Glucose 223 H 215 H Random Glucose Fasting Glucose Lactic Acid Calcium Magnesium TSH Free T4 Urine Color Urine Appearance Urine pH Ur Specific Ninety Six Urine Protein Urine Glucose (UA) Urine Ketones Urine Blood Urine Nitrite Ur Leukocyte Esterase Urine RBC Urine WBC Ur Squamous Epith Cells Urine Bacteria Hyaline Casts COVID-19 ([facility]) COVID-19 [employer] 12/10/22 12/10/22 12/10/22 07:50 11:34 17:00 WBC RBC Hgb Hct MCV MCH MCHC RDW Plt Count MPV Immature Gran % (Auto) Neut % (Auto) Lymph % (Auto) Daniels % (Auto) Eos % (Auto) Baso % (Auto) Lymph # (Auto) Daniels # (Auto) Eos # (Auto) Baso # (Auto) Abs Immat Gran (auto) Absolute Neuts (auto) Absolute Nucleated RBC Nucleated RBC % (auto) Smear Tech's Comments Sodium 138 Potassium 4.1 Chloride 108 Carbon Dioxide 19 L Anion Gap 15 BUN 25 H Creatinine 0.85 Estim Creat Clear Calc 79.6 Estimated GFR > 60 POC Glucose 264 H 317 H Random Glucose Fasting Glucose 272 H Lactic Acid Calcium 8.0 L Magnesium TSH Free T4 Urine Color Urine Appearance Urine pH Ur Specific Ninety Six Urine Protein Urine Glucose (UA) Urine Ketones Urine Blood Urine Nitrite Ur Leukocyte Esterase Urine RBC Urine WBC Ur Squamous Epith Cells Urine Bacteria Hyaline Casts COVID-19 ([facility]) COVID-19 [employer] 12/10/22 12/11/22 12/11/22 20:30 07:35 09:23 WBC 16.8 H RBC 4.10 L Hgb 11.4 L Hct 34.7 L MCV 84.6 MCH 27.8 MCHC 32.9 RDW 14.4 Plt Count 248 MPV 10.1 Immature Gran % (Auto) Neut % (Auto) Lymph % (Auto) Daniels % (Auto) Eos % (Auto) Baso % (Auto) Lymph # (Auto) Daniels # (Auto) Eos # (Auto) Baso # (Auto) Abs Immat Gran (auto) Absolute Neuts (auto) Absolute Nucleated RBC 0.000 Nucleated RBC % (auto) 0.0 Smear Tech's Comments Sodium Potassium Chloride Carbon Dioxide Anion Gap BUN Creatinine Estim Creat Clear Calc Estimated GFR POC Glucose 357 H* 299 H Random Glucose Fasting Glucose Lactic Acid Calcium Magnesium TSH Free T4 Urine Color Urine Appearance Urine pH Ur Specific Ninety [place] Urine Protein Urine Glucose (UA) Urine Ketones Urine Blood Urine Nitrite Ur Leukocyte Esterase Urine RBC Urine WBC Ur Squamous Epith Cells Urine Bacteria Hyaline Casts COVID-19 ([facility]) COVID-19 Clin Com 12/11/22 12/11/22 12/11/22 09:23 11:19 16:45 WBC RBC Hgb Hct MCV MCH MCHC RDW Plt Count MPV Immature Gran % (Auto) Neut % (Auto) Lymph % (Auto) Daniels % (Auto) Eos % (Auto) Baso % (Auto) Lymph # (Auto) Daniels # (Auto) Eos # (Auto) Baso # (Auto) Abs Immat Gran (auto) Absolute Neuts (auto) Absolute Nucleated RBC Nucleated RBC % (auto) Smear Tech's Comments Sodium 139 Potassium 3.7 Chloride 107 Carbon Dioxide 20 L Anion Gap 16 BUN 22 H Creatinine 0.77 Estim Creat Clear Calc 87.9 Estimated GFR > 60 POC Glucose 279 H 409 H* Random Glucose Fasting Glucose 315 H Lactic Acid Calcium 8.4 Magnesium 1.7 TSH 0.22 L Free T4 1.55 Urine Color Urine Appearance Urine pH Ur Specific Ninety [place] Urine Protein Urine Glucose (UA) Urine Ketones Urine Blood Urine Nitrite Ur Leukocyte Esterase Urine RBC Urine WBC Ur Squamous Epith Cells Urine Bacteria Hyaline Casts COVID-19 ([facility]) COVID-19 Clin Com 12/11/22 12/12/22 12/12/22 19:22 05:50 05:50 WBC 19.3 H RBC 4.21 Hgb 11.5 L Hct 36.3 L MCV 86.2 MCH 27.3 MCHC 31.7 RDW 14.2 Plt Count 301 MPV 10.6 Immature Gran % (Auto) Neut % (Auto) Lymph % (Auto) Daniels % (Auto) Eos % (Auto) Baso % (Auto) Lymph # (Auto) Daniels # (Auto) Eos # (Auto) Baso # (Auto) Abs Immat Gran (auto) Absolute Neuts (auto) Absolute Nucleated RBC 0.020 H Nucleated RBC % (auto) 0.1 Smear Tech's Comments Sodium 140 Potassium 4.1 Chloride 105 Carbon Dioxide 24 Anion Gap 15 BUN 25 H Creatinine 0.82 Estim Creat Clear Calc 82.5 Estimated GFR > 60 POC Glucose 416 H* Random Glucose Fasting Glucose 215 H Lactic Acid Calcium 8.9 Magnesium TSH Free T4 Urine Color Urine Appearance Urine pH Ur Specific [place] Urine Protein Urine Glucose (UA) Urine Ketones Urine Blood Urine Nitrite Ur Leukocyte Esterase Urine RBC Urine WBC Ur Squamous Epith Cells Urine Bacteria Hyaline Casts COVID-19 ([facility]) COVID-19 Clin Com 12/12/22 12/12/22 12/12/22 07:21 11:25 16:38 WBC RBC Hgb Hct MCV MCH MCHC RDW Plt Count MPV Immature Gran % (Auto) Neut % (Auto) Lymph % (Auto) Daniels % (Auto) Eos % (Auto) Baso % (Auto) Lymph # (Auto) Daniels # (Auto) Eos # (Auto) Baso # (Auto) Abs Immat Gran (auto) Absolute Neuts (auto) Absolute Nucleated RBC Nucleated RBC % (auto) Smear Tech's Comments Sodium Potassium Chloride Carbon Dioxide Anion Gap BUN Creatinine Estim Creat Clear Calc Estimated GFR POC Glucose 199 H 280 H 222 H Random Glucose Fasting Glucose Lactic Acid Calcium Magnesium TSH Free T4 Urine Color Urine Appearance Urine pH Ur Specific [place] Urine Protein Urine Glucose (UA) Urine Ketones Urine Blood Urine Nitrite Ur Leukocyte Esterase Urine RBC Urine WBC Ur Squamous Epith Cells Urine Bacteria Hyaline Casts COVID-19 ([facility]) COVID-19 Clin Com 12/12/22 12/13/22 12/13/22 19:40 06:13 06:51 WBC 18.7 H RBC 4.23 Hgb 11.7 L Hct 36.2 L MCV 85.6 MCH 27.7 MCHC 32.3 RDW 14.4 Plt Count 281 MPV 11.3 Immature Gran % (Auto) Neut % (Auto) Lymph % (Auto) Daniels % (Auto) Eos % (Auto) Baso % (Auto) Lymph # (Auto) Daniels # (Auto) Eos # (Auto) Baso # (Auto) Abs Immat Gran (auto) Absolute Neuts (auto) Absolute Nucleated RBC 0.040 H Nucleated RBC % (auto) 0.2 Smear Tech's Comments Sodium Potassium Chloride Carbon Dioxide Anion Gap BUN Creatinine Estim Creat Clear Calc Estimated GFR POC Glucose 205 H 201 H Random Glucose Fasting Glucose Lactic Acid Calcium Magnesium TSH Free T4 Urine Color Urine Appearance Urine pH Ur Specific [place] Urine Protein Urine Glucose (UA) Urine Ketones Urine Blood Urine Nitrite Ur Leukocyte Esterase Urine RBC Urine WBC Ur Squamous Epith Cells Urine Bacteria Hyaline Casts COVID-19 ([facility]) COVID-19 Clin Com 12/13/22 12/13/22 12/13/22 07:16 11:12 16:13 WBC RBC Hgb Hct MCV MCH MCHC RDW Plt Count MPV Immature Gran % (Auto) Neut % (Auto) Lymph % (Auto) Daniels % (Auto) Eos % (Auto) Baso % (Auto) Lymph # (Auto) Daniels # (Auto) Eos # (Auto) Baso # (Auto) Abs Immat Gran (auto) Absolute Neuts (auto) Absolute Nucleated RBC Nucleated RBC % (auto) Smear Tech's Comments Sodium 141 Potassium 4.1 Chloride 103 Carbon Dioxide 23 Anion Gap 19 BUN 19 H Creatinine 0.77 Estim Creat Clear Calc 87.9 Estimated GFR > 60 POC Glucose 356 H* 187 H Random Glucose Fasting Glucose 209 H Lactic Acid Calcium 9.1 Magnesium 1.6 TSH Free T4 Urine Color Urine Appearance Urine pH Ur Specific N[place] Urine Protein Urine Glucose (UA) Urine Ketones Urine Blood Urine Nitrite Ur Leukocyte Esterase Urine RBC Urine WBC Ur Squamous Epith Cells Urine Bacteria Hyaline Casts COVID-19 ([facility]) COVID-19 Clin Com 12/13/22 12/14/22 12/14/22 19:21 07:11 07:11 WBC 16.0 H RBC 4.24 Hgb 11.6 L Hct 36.0 L MCV 84.9 MCH 27.4 MCHC 32.2 RDW 14.3 Plt Count 422 H D MPV 9.9 Immature Gran % (Auto) Neut % (Auto) Lymph % (Auto) Daniels % (Auto) Eos % (Auto) Baso % (Auto) Lymph # (Auto) Daniels # (Auto) Eos # (Auto) Baso # (Auto) Abs Immat Gran (auto) Absolute Neuts (auto) Absolute Nucleated RBC 0.020 H Nucleated RBC % (auto) 0.1 Smear Tech's Comments Sodium 140 Potassium 4.1 Chloride 102 Carbon Dioxide 26 Anion Gap 16 BUN 17 H Creatinine 0.77 Estim Creat Clear Calc 87.9 Estimated GFR > 60 POC Glucose 199 H Random Glucose Fasting Glucose 236 H Lactic Acid Calcium 8.5 D Magnesium TSH Free T4 Urine Color Urine Appearance Urine pH Ur Specific [place] Urine Protein Urine Glucose (UA) Urine Ketones Urine Blood Urine Nitrite Ur Leukocyte Esterase Urine RBC Urine WBC Ur Squamous Epith Cells Urine Bacteria Hyaline Casts COVID-19 ([facility]) COVID-19 Clin Com 12/14/22 12/14/22 07:29 11:08 WBC RBC Hgb Hct MCV MCH MCHC RDW Plt Count MPV Immature Gran % (Auto) Neut % (Auto) Lymph % (Auto) Daniels % (Auto) Eos % (Auto) Baso % (Auto) Lymph # (Auto) Daniels # (Auto) Eos # (Auto) Baso # (Auto) Abs Immat Gran (auto) Absolute Neuts (auto) Absolute Nucleated RBC Nucleated RBC % (auto) Smear Tech's Comments Sodium Potassium Chloride Carbon Dioxide Anion Gap BUN Creatinine Estim Creat Clear Calc Estimated GFR POC Glucose 207 H 200 H Random Glucose Fasting Glucose Lactic Acid Calcium Magnesium TSH Free T4 Urine Color Urine Appearance Urine pH Ur Specific [place] Urine Protein Urine Glucose (UA) Urine Ketones Urine Blood Urine Nitrite Ur Leukocyte Esterase Urine RBC Urine WBC Ur Squamous Epith Cells Urine Bacteria Hyaline Casts COVID-19 ([facility]) COVID-19 Clin Com Airway Mallampati Class: III TM Dist: >3cm Neck ROM: Full Loose/Missing/Broken Teeth: No Heart: irreg irreg rhythm Lungs: CTA Assessment and Plan Assessment Anesthesia Assessment: Anesthesia Plan Discussed and Chart Reviewed Final Anesthetic Review History of Problems with Anesthesia: No NPO: Yes ASA Class: III Final Preanesthetic Review: Meds/Allgs Chart Reviewed, Consent Obtained/Reviewed and Anes Risks/Benef Reviewed Patient Risk: Intermediate Procedure Risk: Intermediate Anesthetic Plan Anesthetic Plan: MAC: Disposition: Standard PACU
[2022-12-14] MEDS: Lactated Ringers 500 ML 50 ML IV (13:15)
--- NOTE | 2022-12-14 13:23 | P.PNIM_ITS ---
Subjective Subjective Date of Service: 12/14/22 Interval History: Seen and evaluated this morning Pending LLOYD, cardioversion Still symptomatic upon ambulation Review of Systems Review of Systems: Yes all other systems are reviewed and are negative Physical Exam Vital Signs: Vital Signs: Last Vital Signs Temp 98.2 F 12/14/22 07:48 Pulse 94 12/14/22 07:48 Resp 18 12/14/22 07:48 BP 156/72 H 12/14/22 07:48 Pulse Ox 92 12/14/22 07:48 O2 Del Method 12/14/22 07:48 O2 Flow Rate 2 12/13/22 03:02 Oxygen Flow Rate 2 12/10/22 17:41 BMI result Body Mass Index 40.3 Const: Other: Constitutional : Awake, interactive, not in distress Neck : Normal inspection, Supple Cardiovascular : Irregular irregular, no JVP, no lower extremity edema Respiratory : good bilateral air entry, no crackles, wheezes or rhonchi Gastrointestinal: soft, lax, Normal bowel sounds, Non tender Skin : Warm, Dry Neurological : Alert & oriented x3, No focal deficit , CN 2-12 within normal Objective Data Active Medications Acetaminophen (Acetaminophen 325 Mg Tablet) 650 mg PO Q6H PRN PRN Reason: Pain, Mild (Pain Scale 1-3) Apixaban (Apixaban 5 Mg Tablet) 5 mg PO BID [facility] Last Admin: 12/14/22 07:51 Dose: 5 mg Documented By: JOSSIE Cyanocobalamin (Cyanocobalamin (Vitamin B-12) 1,000 Mcg Tablet) 1,000 mcg PO DAILY [facility] Last Admin: 12/14/22 07:51 Dose: 1,000 mcg Documented By: JOSSIE Dextrose (Dextrose 50 % 25 Gm/50 Ml Syringe) 25 gm IVPUSH Q15M PRN; Protocol PRN Reason: per Hypoglycemia Standing Ord. Digoxin (Digoxin 0.25 Mg Tablet) 0.25 mg PO DAILY [facility] Last Admin: 12/14/22 07:51 Dose: 0.25 mg Documented By: JOSSIE Glipizide (Glipizide 10 Mg Tablet) 10 mg PO BIDAC [facility] Last Admin: 12/14/22 07:51 Dose: 10 mg Documented By: JOSSIE Glucose (Glucose Gel 15 Gm Gel..Gram.) 15 gm PO Q15M PRN; Protocol PRN Reason: per Hypoglycemia Standing Ord. Ceftriaxone Sodium 1 gm/ (Sodium Chloride) 50 mls @ 100 mls/hr IV Q24H [facility] Last Infusion: 12/14/22 00:48 Dose: 0 mls/hr Documented By: MARIVEL Insulin Human Lispro (Insulin Lispro 100 Unit/Ml 3 Ml Vial) 0 unit SUBCUT QIDACHS [facility]; Protocol Last Admin: 12/14/22 12:59 Dose: Not Given Documented By: JOSSIE Non-Admin Reason: NPO Losartan Potassium (Losartan Potassium 25 Mg Tablet) 25 mg PO BEDTIME [facility]; Protocol Last Admin: 12/13/22 20:33 Dose: 25 mg Documented By: DEEPALI Magnesium Oxide (Magnesium Oxide 400 Mg Tablet) 400 mg PO BIDPC [facility] Last Admin: 12/14/22 07:51 Dose: 400 mg Documented By: JOSSIE Melatonin (Melatonin 3 Mg Tablet) 6 mg PO BEDTIME PRN PRN Reason: Insomnia Last Admin: 12/14/22 00:04 Dose: 6 mg Documented By: MARIVEL Metoprolol Tartrate (Metoprolol Tartrate 50 Mg Tablet) 50 mg PO QID [facility]; Protocol Last Admin: 12/14/22 13:00 Dose: Not Given Documented By: JOSSIE Non-Admin Reason: Off Unit: Surgery Omeprazole (Omeprazole 40 Mg Capsule.) 40 mg PO DAILY@0630 [facility] Last Admin: 12/14/22 06:39 Dose: 40 mg Documented By: MARIVEL Ondansetron HCl (Ondansetron Hcl 4 Mg/2 Ml Vial) 4 mg IVPUSH Q8H PRN PRN Reason: Nausea and Vomiting Last Admin: 12/14/22 00:04 Dose: 4 mg Documented By: MARIVEL Pharmacy Consult (Consult Rx Perform Med Rec) 1 each MISCELLANE ONCE PRN PRN Reason: Consult order Sitagliptin Phosphate (Sitagliptin Phosphate 100 Mg Tablet) 100 mg PO BEDTIME [facility] Last Admin: 12/13/22 20:33 Dose: 100 mg Documented By: DEEPALI Sodium Chloride (0.9 % Sodium Chloride Flush 3 Ml Syringe) 3 ml IVFLUSH QSHIFT [facility] Last Admin: 12/14/22 07:51 Dose: 3 ml Documented By: JOSSIE Tramadol HCl (Tramadol Hcl 50 Mg Tablet) 50 mg PO Q6H PRN PRN Reason: Pain, Moderate (Pain Scale 4-6 Last Admin: 12/10/22 16:27 Dose: 50 mg Documented By: LATOSHA Labs 12/14/22 07:11 12/14/22 07:11 Labs: Laboratory Results - last 24 hr 12/13/22 12/13/22 12/14/22 16:13 19:21 07:11 MCV 84.9 MCH 27.4 MCHC 32.2 RDW 14.3 Plt Count 422 H D MPV 9.9 Absolute Nucleated RBC 0.020 H Nucleated RBC % (auto) 0.1 Anion Gap Estim Creat Clear Calc Estimated GFR POC Glucose 187 H 199 H Fasting Glucose Calcium 12/14/22 12/14/22 12/14/22 07:11 07:29 11:08 MCV MCH MCHC RDW Plt Count MPV Absolute Nucleated RBC Nucleated RBC % (auto) Anion Gap 16 Estim Creat Clear Calc 87.9 Estimated GFR > 60 POC Glucose 207 H 200 H Fasting Glucose 236 H Calcium 8.5 D Microbiology Microbiology Results: Microbiology 12/09/22 01:04 Blood Culture - Final Blood - Venous No growth after 5 days. 12/09/22 01:04 Blood Culture - Final Blood - Venous No growth after 5 days. Assessment and Plan (1) Atrial fibrillation with rapid ventricular response: Status: Acute (2) Hydronephrosis: Status: Acute (3) Pyelonephritis: Status: Acute Plan 62-year-old female with pertinent history of bbw-lgjoiuv-rzffffyxp diabetes mellitus, morbid obesity, who presented to the emergency department for evaluation of abdominal pain. Right-sided hydronephrosis due to right UPJ calculus complicated by sepsis due to acute pylenoephritis cultures negative, continue rocephin day 6 s/p cystoscopy right retrograde,? aspiration right renal pelvis, right stent placement 12/09/22 new onset afib with rvr still in low 100s eliquis metoprolol 50 qid s/p dig load, continue 0.25mg daily echo showed EF of 50-55% cardio following, plan for cardioversion today hypomagnesemia replace monitor DM with hyperglycemia insulin morbid obesity weight loss recommended acute hypoxic respiraotry failure present on arrival ?poor inspiratory effort/obesity restriction now on room air DVT prophylaxis:? eliquis Full code reason for continued hospitalization: still in rvr pending cardioversion unsafe discharge plan Time Spent With Patient Time: Total time managing care of this patient today ____ minutes. Quality Stroke Does the patient have a stroke diagnosis?: No VTE Prior VTE?: No VTE Risk Level:: Medical - moderate - high VTE Device Contraindication: N/A - Device Ordered VTE Drug Contraindication: Treatment Not Indicated
--- NOTE | 2022-12-14 13:34 | CA_ITS ---
Transesophageal Echocardiogram Patient (Last, First, Middle): Antoinette Thomas M Gender: Female Date of : 1960 Age: 62 Procedure Date: 12/14/2022 Procedure Type: Transesophageal Echocardiogram Location: S3E Height: 165. cm Weight: 107. kg BSA: 2.12 m2 Heart Rate: bpm Manager [place]: [place] Referring MD: Laz Pham MD Combination Welder Apprentice: Laz Pham MD Symptoms: afib, Pre cardioversion Conclusion: ??? 1. No intracardiac thrombi or masses or vegetations 2. Low normal LV ejection fraction 50-55% 3. Mildly dilated left atrium 4. Mild mitral regurgitation 5. No intracardiac shunting 6. Hssa-yz-uenhffpa atherosclerotic changes noted in the descending thoracic aorta 7. No significant pericardial abnormality Findings Procedure Information Consent was obtained prior to the procedure. Pre LLOYD oral cavity was checked and revealed significant overcrowding. The adult 3D probe was passed with no difficulty. Left Ventricle Normal left ventricular cavity size. There is mildly increased left ventricular wall thickness. The left ventricular systolic function is low normal. The visually estimated ejection fraction is between 50-55%. Diastolic function is indeterminate on the basis of available data. Right Ventricle Normal right ventricular cavity size and systolic function. Atria The left atrium is mildly dilated. There is a mobile atrial septum noted. There is no evidence of a patent foramen ovale. There is no evidence of an atrial septal defect. Left atrium was identified in multiple views. There were no clots or filling defects or masses seen. the left atrial appendage was identified multiple views. No no clots or significant smoke formation seen within left atrial appendage. Left atrial appendage ejection velocity is reduced consistent with reduced function. The left upper, right upper and right lower pulmonary vein drain normally into the left atrium. The right atrium is normal in size. Right atrium is free of any thrombus or masses. The IVC and SVC drain normally into the right atrium. Prominent eustachian well was noted. Aortic Valve Normal aortic valve structure and function. There is no aortic valve stenosis. There is no evidence of a mass on the aortic valve. There is no aortic valve regurgitation. Mitral Valve Normal mitral valve structure and function. There is mild mitral valve regurgitation. There is no mitral valve stenosis. There is no mass noted on the mitral valve. Pulmonic Valve The pulmonic valve is likely normal. Tricuspid Valve Normal tricuspid valve structure. There is mild tricuspid valve regurgitation. There is no evidence of a mass on the tricuspid valve. Great Vessels All visible segments of the aorta are normal in size. The visualized portions of the pulmonary artery and branches are normal. Shsd-xw-wwquyeyk atherosclerotic changes noted in descending thoracic aorta Pericardium/Pleural There is no evidence of pericardial effusion. Measurements Aortic Valve AoV Pk Rancho: 1.41 AoV Pk Grad: 8.00 Tricuspid Valve TR Pk Rancho: 3.14 TR Pk Grad: 39.00 Great Vessels Aorta Ao Asc: 3.90 2.1-3.4 cm Updated by Laz Pham on 04:34 PM with Status of Final Laz Pham MD electronically signed on 12/14/2022 4:34:06 PM with status of Final
--- NOTE | 2022-12-14 13:37 | PC.NURSE ---
MEDICATED FOR NAUSEA. NO VOMITTING.
--- NOTE | 2022-12-14 13:39 | MHC.SHP ---
Pre-Procedural Eval Section A Date of Service: 12/14/22 The patient is an INPATIENT: Yes Changes since office visit: Yes Patient answered all questions; No Cold of Flu in the past 2 weeks, No New Medical Problems and No Changes in Medication The History & Physical has been completed within 30 days and I have reviewed it.: Yes Section B Chief Complaint: AFib Allergies: Allergies Allergy/AdvReac Type Severity Reaction Status Date / Time Penicillins [PCN] Allergy Hives Verified 12/08/22 20:03 codeine AdvReac Nausea Verified 12/08/22 20:03 metformin AdvReac Unknown Verified 12/08/22 20:03 Plan I have reviewed the history and physical and performed a pertinent physical examination on my patient. No changes have occurred unless specified. Time Spent With Patient Time: Total time managing care of this patient today ____ minutes.
--- NOTE | 2022-12-14 15:09 | HO.CARDIVERS ---
Cardioversion Procedure Note Cardioversion Date of Procedure: Today Ordering Provider: Myself Performing Provider: Myself Indication for Procedure: Persistent difficult to control atrial fibrillation with borderline LV systolic function Pre-Op Diagnosis: Same Post-Op Diagnosis: Normal sinus rhythm Performed with Transesophageal Echo: Yes LLOYD findings (if LLOYD Performed): Report dictated separately History: See my progress note Consent: Verbal and Written consent was obtained from the patient before starting and after confirming oral anticoagulation use. The patient was made aware of the risk of synchronized cardioversion including benefits and alternatives Procedure: After consent obtained, cardioversion pads were attached in anteroposterior configuration and the patient was sedated by the anesthesia team. Once adequate sedation achieved, patient was delivered 200 joules of biphasic synchronized energy in anteroposterior configuration Complications: None Impression: Successful conversion to sinus rhythm Recommendations: 1. 12 lead EKG 2. Continue metoprolol and Eliquis 3. Outpatient Holter monitor and follow-up 4. Discontinue digoxin 5. Patient may be discharged home tomorrow
--- NOTE | 2022-12-14 15:11 | PM.PNCARD ---
Subjective Subjective Date of Service: 12/14/22 Principal diagnosis: Atrial fibrillation Interval history: Patient status post LLOYD guided cardioversion. Converted to sinus rhythm. Review of Systems Constitutional: Reports no additional constitutional complaints Cardiovascular: Reports no additional cardiovascular complaints Respiratory: Reports no additional respiratory complaints Gastrointestinal: Reports no additional gastrointestinal complaints Reports system reviewed and no additional complaints, except as documented Physical Exam Vital Signs: Last Vital Signs Temp 97.9 F 12/14/22 14:50 Pulse 72 12/14/22 15:05 Resp 18 12/14/22 15:05 BP 144/57 H 12/14/22 15:05 Pulse Ox 97 12/14/22 15:05 O2 Del Method 12/14/22 15:05 O2 Flow Rate 4 12/14/22 14:30 Oxygen Flow Rate 2 12/10/22 17:41 BMI result Body Mass Index 40.3 GENERAL APPEARANCE: Distress, tachypneic. In that she has been having chills. NECK: no carotid bruit, no jugular venous distention. SKIN: no suspicious lesions, warm and dry. HEART: no murmurs, regular rate and rhythm. LUNGS: clear to auscultation bilaterally. ABDOMEN: soft, nontender. EXTREMITIES: no edema. PERIPHERAL PULSES: equal. NEUROLOGIC: No gross deficits, AAO X 3 Objective Labs and Meds 12/14/22 07:11 12/14/22 07:11 Lab results: Laboratory Results - last 24 hr 12/13/22 12/13/22 12/14/22 16:13 19:21 07:11 WBC 16.0 H RBC 4.24 Hgb 11.6 L Hct 36.0 L MCV 84.9 MCH 27.4 MCHC 32.2 RDW 14.3 Plt Count 422 H D MPV 9.9 Absolute Nucleated RBC 0.020 H Nucleated RBC % (auto) 0.1 Sodium Potassium Chloride Carbon Dioxide Anion Gap BUN Creatinine Estim Creat Clear Calc Estimated GFR POC Glucose 187 H 199 H Fasting Glucose Calcium 12/14/22 12/14/22 12/14/22 07:11 07:29 11:08 WBC RBC Hgb Hct MCV MCH MCHC RDW Plt Count MPV Absolute Nucleated RBC Nucleated RBC % (auto) Sodium 140 Potassium 4.1 Chloride 102 Carbon Dioxide 26 Anion Gap 16 BUN 17 H Creatinine 0.77 Estim Creat Clear Calc 87.9 Estimated GFR > 60 POC Glucose 207 H 200 H Fasting Glucose 236 H Calcium 8.5 D Progress Note: A&P Assessment and plan (1) PAF (paroxysmal atrial fibrillation): Status: Acute Assessment and Plan: Patient status post synchronized cardioversion for persistent atrial fibrillation with borderline rate control as well as borderline LV systolic function. At this point time will continue metoprolol therapy. Digoxin can be discontinued. Require outpatient workup for sleep apnea and will also require Holter monitor as an outpatient. Continue full oral anticoagulation Eliquis. If patient remained in sinus rhythm can be discharged home tomorrow. Will sign of the case. Thank you for allowing me to partake in her care Time Spent With Patient Time: Total time managing care of this patient today ____ minutes. Progress Note: Quality Stroke Does the patient have a stroke diagnosis?: No Procedures Date of Service Date of Service: 12/14/22
[2022-12-14 16:30] LABS: Glucose, Whole Blood 178 mg/dL (60-115)
[2022-12-14] MEDS: Insulin Lispro 100 UNIT/ML 3 ML VIAL SUBCUT ×2 (17:00→21:17)
[2022-12-14 20:56] LABS: Glucose, Whole Blood 250 mg/dL (60-115)
[2022-12-14] MEDS: SITagliptin Phosphate 100 MG TABLET PO (21:16)
[2022-12-14] MEDS: Losartan Potassium 25 MG TABLET PO (21:17)
[2022-12-15] MEDS: cefTRIAXone sodium 1 GM in 0.9 % Sodium Chloride 50 ML IV (01:14)
[2022-12-15] MEDS: 0.9 % Sodium Chloride Flush 3 ML SYRINGE IVFLUSH ×2 (01:14→08:20)
[2022-12-15 03:45] VITALS: BP 140/60; PULSE 80; RESP 18; TEMP 36.7; O2SAT 93
[2022-12-15] MEDS: Omeprazole 40 MG CAPSULE.DR PO (06:16)
[2022-12-15 07:02] LABS: Hematocrit 32.9 % (37.0-47.0); Hemoglobin 10.6 g/dl (12.0-16.0); Mean Corpuscular HGB Conc 32.2 g/dl (31.0-35.0); Mean Corpuscular Hemoglobin 27.6 pg (27.0-33.0); Mean Corpuscular Volume 85.7 fL (80.0-98.0); Mean Platelet Volume 9.9 fL (9.4-12.3); Platelet Count 466 X10*3/uL (160-400); Red Blood Count 3.84 X10*6/uL (4.20-5.50); Red Cell Distribution Width 14.4 % (11.0-16.0); White Blood Count 16.8 X10*3/uL (4.8-10.8)
[2022-12-15 07:17] LABS: Anion Gap 15 (12-20); Blood Urea Nitrogen 19 mg/dL (9-16); Calcium 8.3 mg/dL (8.4-10.2); Carbon Dioxide 27 mmol/L (22-29); Chloride 103 mmol/L (96-108); Estimated Glomerular Filt Rate > 60; Glucose Random 200 mg/dL (60-115); Potassium 4.4 mmol/L (3.3-5.1); Sodium 141 mmol/L (135-145)
[2022-12-15 07:31] LABS: Glucose, Whole Blood 182 mg/dL (60-115)
[2022-12-15 07:52] VITALS: BP 164/70; PULSE 70; RESP 18; TEMP 36.4; O2SAT 94
--- NOTE | 2022-12-15 07:54 | ECG_ITS ---
Test Reason : Post cardioversion Blood Pressure : / mmHG Vent. Rate : 070 BPM Atrial Rate : 070 BPM P-R Int : 156 ms QRS Dur : 080 ms QT Int : 384 ms P-R-T Axes : 058 035 030 degrees QTc Int : 414 ms Normal sinus rhythm Normal ECG When compared with ECG of 11-DEC-2022 10:42, Sinus rhythm has replaced Atrial fibrillation Vent. rate has decreased BY 55 BPM Referred By: Laz Pham Electronically Signed By:LAZ PHAM MD
[2022-12-15] MEDS: Insulin Lispro 100 UNIT/ML 3 ML VIAL SUBCUT ×2 (08:17→12:05)
[2022-12-15] MEDS: Apixaban 5 MG TABLET PO (08:18)
[2022-12-15] MEDS: glipiZIDE 10 MG TABLET PO (08:18)
[2022-12-15] MEDS: Cyanocobalamin (Vitamin B-12) 1,000 MCG TABLET 1000 MCG PO (08:18)
[2022-12-15] MEDS: Metoprolol Tartrate 50 MG TABLET PO ×2 (08:18→12:05)
[2022-12-15] MEDS: Digoxin 0.25 MG TABLET PO (08:18)
[2022-12-15] MEDS: Magnesium Oxide 400 MG TABLET PO (08:23)
[2022-12-15 11:20] LABS: Glucose, Whole Blood 283 mg/dL (60-115)
--- NOTE | 2022-12-15 12:33 | MHC.CM.PN ---
DC TODAY, HOME NO SERVICES PT TO ARRANGE TRANSPORT
--- NOTE | 2022-12-15 12:34 | PM.DS ---
DS: Providers Provider Date of Service: 12/15/22 Date of admission: 12/08/22 23:41 Primary care physician: Kizzy Lizarraga MD Consults: 12/08/22 23:34 Consult to Urology Stat Consulting Provider: Wale Gabriel Reason for consultation: rt renal colic 12/11/22 10:53 Consult to Cardiology Routine Consulting Provider: Andi Duncan Reason for consultation: new afib DS: Diagnosis Discharge Diagnosis (1) PAF (paroxysmal atrial fibrillation): Status: Acute (2) Pyelonephritis: Status: Acute (3) Atrial fibrillation with rapid ventricular response: Status: Acute (4) Renal calculi: Status: Acute (5) Hydronephrosis: Status: Acute DS: Summary Hospital Course Hospital Course: Admission note HPI This is a 62-year-old female with pertinent history of wub-oyokkun-mkqyewrks diabetes mellitus, chronic kidney disease who presents to the emergency department for evaluation of abdominal pain.? Patient states she started having right-sided abdominal pain about 2 days prior to presentation.? Initially pain was intermittent and then became constant.? Intermittent radiation to the back and groin.? It was associated with chills, nausea and multiple episodes of nonbloody emesis.? She does have a history of kidney stones but states this is the worst pain she has ever experienced.? Denies chest discomfort, palpitations, shortness of breath, changes in bowel habits In the emergency department, imaging with right-sided hydronephrosis and 1.1 cm UPJ calculus. Hospital course The patient was admitted to the hospital for evaluation of abdominal pain. CT scan was consistent with right-sided hydronephrosis due to right sided calculus associated with sepsis and acute pyelonephritis. The patient was treated with IV antibiotic of ceftriaxone. Blood cultures came back negative as urine culture grew Proteus that is sensitive to ceftriaxone. Cystoscopy was done by urologist with aspiration of the right renal pelvis and placement of a stent on 12/09/2022. She developed atrial fibrillation with rapid ventricular response. Evaluated by Cardiology as an echo showed normal ejection fraction. Started on metoprolol and digoxin with no significant control. Cardioversion was done with good response as her heart rhythm became well controlled and sinus. Cardiology recommended to follow-up as outpatient for Holter monitoring and the need of outpatient sleep study to evaluate for SUMI. The patient was noted to have hypomagnesemia. Started on daily supplement. Continue Ceftin as prescribed for urine infection Start metoprolol to 100 mg daily Start Eliquis as a blood thinner, watch for any bleeding Continue tamsulosin as prescribed to help passing the kidney stone To follow up with Cardiology as outpatient for further workup You will need a sleep study as an outpatient, to be arranged by your PCP Time Spent with Patient Time attestation: Total time managing care of this patient today ____ minutes. Discharge coordination time: Greater than 30 minutes Quality: Safe Use of Opioids Does Pt have an Active Cancer Diagnosis on the Problem List?: No Quality: Stroke Does the patient have a stroke diagnosis?: No Physical Exam Vital Signs: Vital Signs: Last Vital Signs Temp 97.6 F 12/15/22 07:52 Pulse 70 12/15/22 07:52 Resp 18 12/15/22 07:52 BP 164/70 H 12/15/22 07:52 Pulse Ox 94 12/15/22 07:52 O2 Del Method 12/15/22 07:52 O2 Flow Rate 4 12/14/22 14:30 Oxygen Flow Rate 2 12/10/22 17:41 BMI result Body Mass Index 40.3 Const: Other: Constitutional : Awake, interactive, not in distress Neck : Normal inspection, Supple Cardiovascular : Regular, no JVP, no lower extremity edema Respiratory : good bilateral air entry, no crackles, wheezes or rhonchi Gastrointestinal: soft, lax, Normal bowel sounds, Non tender Skin : Warm, Dry Neurological : Alert & oriented x3, No focal deficit , CN 2-12 within normal DS: Data Data Completed and Pending Labs on day of discharge: Laboratory Results - last 24 hr 12/14/22 12/14/22 12/15/22 16:27 20:52 06:00 WBC 16.8 H RBC 3.84 L Hgb 10.6 L Hct 32.9 L MCV 85.7 MCH 27.6 MCHC 32.2 RDW 14.4 Plt Count 466 H MPV 9.9 Absolute Nucleated RBC 0.000 Nucleated RBC % (auto) 0.0 Sodium Potassium Chloride Carbon Dioxide Anion Gap BUN Creatinine Estim Creat Clear Calc Estimated GFR POC Glucose 178 H 250 H Random Glucose Calcium 12/15/22 12/15/22 12/15/22 06:00 07:27 11:16 WBC RBC Hgb Hct MCV MCH MCHC RDW Plt Count MPV Absolute Nucleated RBC Nucleated RBC % (auto) Sodium 141 Potassium 4.4 Chloride 103 Carbon Dioxide 27 Anion Gap 15 BUN 19 H Creatinine 0.72 Estim Creat Clear Calc 94.0 Estimated GFR > 60 POC Glucose 182 H 283 H Random Glucose 200 H Calcium 8.[address] scan - abdomen: Radiologist's impression: ITS Impressions Chest X-Ray 12/08/22 23:58 IMPRESSION: Unremarkable examination. Guidance Fluoroscopy 12/09/22 16:58 IMPRESSION: Fluoroscopy performed by the urology department. Please see operative report for additional information. Discharge Plan Discharge Anticipated Discharge Date/Time: 12/15/22 12:26 Patient Disposition: Home, Self-Care Discharge Diagnosis: right renal stone, pyelonephritis Atrial fibrillation with rapid ventricular response Referrals: Wale Gabriel MD [Physician] - 1 Week Physician,Markel J [Physician] - None Discharge Medications: New tamsulosin 0.4 mg capsule 0.4 mg PO BEDTIME 14 Days Qty: 14 0RF phenazopyridine [Pyridium] 100 mg tablet 100 mg PO TID PRN (Reason: Spasm) 4 Days Qty: 12 0RF naproxen 500 mg tablet 500 mg PO BID PRN (Reason: pain) 7 Days Qty: 14 0RF Eliquis 5 mg Tablet 5 mg PO BID Qty: 60 0RF omeprazole 40 mg Capsule,Delayed Release(Dr/Ec) 40 mg PO DAILY@0630 Qty: 30 0RF magnesium oxide 400 mg (241.3 mg magnesium) Tablet 400 mg PO DAILY Qty: 30 0RF cefuroxime axetil 500 mg tablet 500 mg PO BID Qty: 6 0RF metoprolol succinate 200 mg tablet extended release 24 hr 200 mg PO DAILY Qty: 30 0RF Continued ibuprofen 800 mg tablet 1 tab PO TID PRN (Reason: Pain) coenzyme Q10 10 mg Capsule 10 mg PO BEDTIME cyanocobalamin (vitamin B-12) 1,000 mcg Tablet 1,000 mcg PO DAILY melatonin 3 mg Tablet 3 mg PO BEDTIME aspirin 81 mg Tablet,Delayed Release (Dr/Ec) 81 mg PO BEDTIME losartan 25 mg tablet 1 tab PO BEDTIME gabapentin 100 mg capsule 1 - 3 cap PO BEDTIME PRN (Reason: insomnia) glipizide 5 mg tablet 2 tab PO BIDAC Januvia 100 mg tablet 1 tab PO BEDTIME Discharge Orders: Discharge Order (Routine); Ordered 12/15/22 Ordered By: Ryanne Mcclain Diet: Advance to usual diet Activity on Discharge: As tolerated Stand Alone Forms: Patient Portal Discharge page Other Ambulatory Orders: CT abdomen pelvis wo IV con (Routine) Timeframe: 1 Week Facility: [facility] - Location: CT Scan Ordered By: Jonas Guerra Care Plan Goals: Kidney stones Health Concerns: stones Plan of Treatment: follow up adrenal incidentaloma (adrenal ct) Assessment: You were admitted to the hospital for evaluation of kidney stone with associated kidney infection. Treated with IV antibiotics of ceftriaxone with good response. You were noted to developed irregular heart rhythm called atrial fibrillation evaluated by Cardiology team. Could not be controlled with medications so you ended up having cardioversion by electrical shock. Continue Ceftin as prescribed for urine infection Start metoprolol to 100 mg daily Start Eliquis as a blood thinner, watch for any bleeding Continue tamsulosin as prescribed to help passing the kidney stone To follow up with Cardiology as outpatient for further workup You will need a sleep study as an outpatient, to be arranged by your PCP Patient Instructions: Ureteral Stent Placement (DC)
--- NOTE | 2022-12-15 12:45 | MHC.CM.PN ---
PT WILL DC HOME TODAY WITH NO SERVICES FAMILY TO TRANSPORT
[2022-12-15 13:34] VITALS: O2SAT 96
--- NOTE | 2022-12-15 14:15 | HO.POSTANES ---
Post Anesthesia Evaluation Post Anesthesia Evaluation Vital Signs: Vital Signs Temp Pulse Resp BP Pulse Ox O2 Del Method 12/15/22 13:34 96 12/15/22 07:52 97.6 F 70 18 164/70 H 94 Room Air 12/15/22 03:45 98.1 F 80 18 140/60 H 93 Room Air Anesthesia: Monitored Mental Status: Awake Pain Control: Satisfactory Nausea/Vomiting: None Hydration: Adequate Anesthesia-Related Issues: No Anes. Related Issues
== END 2022-12-15 15:17 | disposition home or self-care (01) | DRG 710 ==
LOC: HO.ED 23:43 → HO.EDOVER 12-09 00:38 → HO.S3 12-09 17:10
PROVIDERS: Internal Medicine; Internal Medicine Cardiovascular Disease; Urology; Admitting Provider Student in an Organized Health Care Education/Training Program; Emergency Provider Emergency Medicine; PCP Family Medicine; Visit Provider Student in an Organized Health Care Education/Training Program
PROC: 0T938ZZ Drainage of Right Kidney Pelvis, Via Natural or Artificial Opening Endoscopic (ICD-10-PCS; principal; 2022-12-09 16:30)
PROC: 5A2204Z Restoration of Cardiac Rhythm, Single (ICD-10-PCS; CPT 93312; principal; 2022-12-14 13:30)
DX: A41.9 Sepsis, unspecified organism (principal); J96.01 Acute respiratory failure with hypoxia; N13.6 Pyonephrosis; E66.01 Morbid (severe) obesity due to excess calories; Z68.41 Body mass index [BMI] 40.0-44.9, adult; R00.0 Tachycardia, unspecified; I48.0 Paroxysmal atrial fibrillation; E83.42 Hypomagnesemia; E11.65 Type 2 diabetes mellitus with hyperglycemia; Z20.822 Contact with and (suspected) exposure to COVID-19; Z88.0 Allergy status to penicillin; Z88.5 Allergy status to narcotic agent; Z88.8 Allergy status to other drugs, medicaments and biological substances; Z79.82 Long term (current) use of aspirin; Z79.84 Long term (current) use of oral hypoglycemic drugs; Z79.899 Other long term (current) drug therapy
CPT/HCPCS: 36415; 71045; 80048; 81001; 82947; 83605; 83735; 84439; 84443; 85025; 85027; 87040; 87070; 87086; 87088; 87186; 87205; 87635; 93005; 93306; 96361; 96374; 96375; 99285; C1758; C1769; C2617; J0131; J0696; J1160; J1650; J1885; J1956; J2250; J2270; J2405; J2765; J3010; Q9957; Q9967

== ENCOUNTER → 2023-01-12 10:09 | Outpatient (BNVA) | payer OTHER, SELFPAY | PROVIDERS: PCP Family Medicine; Visit Provider Urology | DX: Z13.89 Encounter for screening for other disorder (principal) ==

== ENCOUNTER → 2023-02-01 14:45 | Outpatient (BNVA) | payer OTHER, SELFPAY | PROVIDERS: PCP Family Medicine; Referring Provider Family Medicine; Visit Provider Internal Medicine Cardiovascular Disease | DX: I48.0 Paroxysmal atrial fibrillation (principal) | CPT/HCPCS: 93005 ==

== ENCOUNTER 2023-02-06 12:02 | Day surgery (SDC) | payer OTHER, SELFPAY ==
[2023-01-31 14:33] VITALS: BMI 39.4
--- NOTE | 2023-02-03 10:31 | HO.ANESPROP2 ---
Documented by User: Mabel Kelly NP 02/03/23 10:41 HPI - Anesthesia Eval Consult details Narrative: 62yo F for Right Cystoscopy, Ureteroroscopy, Retro, Laser possible stent exchange Eliquis for afib Cardiac optimized PMFSH Active Problems Active Problems: All Active Problems (Updated 02/01/23 @ 16:50 by Andi Duncan MD) PAF (paroxysmal atrial fibrillation) (Acute) Nephrolithiasis (Acute) Diabetes (Acute) Past Medical History Medical History Diabetes History of cardioversion History of COVID-19 Nephrolithiasis PAF (paroxysmal atrial fibrillation) Renal insufficiency Family History Family History (Updated 02/01/23 @ 15:12 by DAWOOD Salomon) Mother Muscular dystrophy Father Diabetes Heart disease Brother Diabetes Muscular dystrophy Paternal Aunt Afib Surgical History Surgical History H/O colonoscopy History of cardiac cath Hx of bilateral oophorectomy Hx of cystoscopy History of Problems with Anesthesia: No Social History Social History (Updated 02/01/23 @ 15:13 by DAWOOD Salomon) Household Members: Family Household Members Other:: adult son Housing: Apartment Housing Other:: in 2 family house Are you a primary lawn care professional to a significant other at home: No Do you presently have visiting nurse or other home services: No Alcohol intake: current Alcohol intake frequency: holidays/special occasions only Patient Tobacco Use Status: Former Tobacco user Quit Date: 1998 Tobacco use type: Cigarette Years Smoked: 20 +/- Use of substances other than those prescribed or required for medical reasons: No Have you been hit, kicked, punched, or otherwise hurt by someone within the past year? If so, by whom?: No Are you DNR?: No Advance Directives Information Provided: Yes (as above noted-will bring copy DOS) Advance Directives on File: No Recently lost weight without trying: No Eating poorly because of decreased appetite: No Nutrition Risks: No Nutritional Risk Poor oral hygiene: No service: No Current occupational status: employed Meds Allergies Allergy/AdvReac Type Severity Reaction Status Date / Time Penicillins [PCN] Allergy Intermediate Hives Verified 02/06/23 13:28 codeine AdvReac Intermediate Nausea Verified 02/06/23 13:28 metformin AdvReac Intermediate caused Verified 02/06/23 13:28 UTI's Home Medications Medication Instructions Recorded Confirmed Last Taken Type coenzyme Q10 10 mg capsule 10 mg PO BEDTIME 12/09/22 02/01/23 12/06/22 History cyanocobalamin (vitamin B-12) 1,000 mcg PO DAILY 12/09/22 02/01/23 12/06/22 History 1,000 mcg tablet gabapentin 100 mg capsule 1 - 3 cap PO BEDTIME PRN insomnia 12/09/22 02/01/23 12/06/22 History glipizide 5 mg tablet 2 tab PO BIDAC 12/09/22 02/01/23 12/06/22 History ibuprofen 800 mg tablet 1 tab PO TID PRN Pain 12/09/22 02/01/23 01/30/23 History sitagliptin phosphate 100 mg 1 tab PO BEDTIME 12/09/22 02/01/23 12/06/22 History tablet (Januvia) magnesium oxide 200 mg PO DAILY 01/31/23 02/01/23 Unknown History metoprolol succinate 200 mg 200 mg PO BEDTIME 01/31/23 02/01/23 Unknown History tablet,extended release 24 hr Exam Exam Date and Time: February 03, 2023 1031 Height,Weight and Vital Signs: Height 5 ft 4.5 in Weight 105.687 kg Pertinent Lab Results Pertinent Lab Results: Laboratory Tests 12/15/22 12/15/22 06:00 06:00 WBC 16.8 H Hgb 10.6 L Hct 32.9 L Plt Count 466 H Sodium 141 Potassium 4.4 Chloride 103 Carbon Dioxide 27 BUN 19 H Creatinine 0.72 Narrative Narrative: EKG 01/2023 Sinus rhythm previous for minute, normal EKG, QTC 406 milliseconds LLOYD 12/2022 Conclusion: ??? 1. No intracardiac thrombi or masses or vegetations? 2. Low normal LV ejection fraction 50-55%? 3. Mildly dilated left atrium? 4. Mild mitral regurgitation ? 5. No intracardiac shunting? 6. [id number] atherosclerotic changes noted in the ? descending thoracic aorta? 7. No significant pericardial abnormality? ? ? Assessment and Plan Assessment Anesthesia Assessment: Chart Reviewed Final Anesthetic Review History of Problems with Anesthesia: No Documented by User: Steph Julien MD 02/06/23 14:44 PMF Past Medical History Medical History Diabetes History of cardioversion History of COVID-19 Nephrolithiasis PAF (paroxysmal atrial fibrillation) Renal insufficiency Family History Family History (Updated 02/01/23 @ 15:12 by DAWOOD Salomon) Mother Muscular dystrophy Father Diabetes Heart disease Brother Diabetes Muscular dystrophy Paternal Aunt Afib Family history of problems with anesthesia: No Surgical History Surgical History H/O colonoscopy History of cardiac cath Hx of bilateral oophorectomy Hx of cystoscopy Social History Social History (Updated 02/01/23 @ 15:13 by DAWOOD Salomon) Household Members: Family Household Members Other:: adult son Housing: Apartment Housing Other:: in 2 family house Are you a primary lawn care professional to a significant other at home: No Do you presently have visiting nurse or other home services: No Alcohol intake: current Alcohol intake frequency: holidays/special occasions only Patient Tobacco Use Status: Former Tobacco user Quit Date: 1998 Tobacco use type: Cigarette Years Smoked: 20 +/- Use of substances other than those prescribed or required for medical reasons: No Have you been hit, kicked, punched, or otherwise hurt by someone within the past year? If so, by whom?: No Are you DNR?: No Advance Directives Information Provided: Yes (as above noted-will bring copy DOS) Advance Directives on File: No Recently lost weight without trying: No Eating poorly because of decreased appetite: No Nutrition Risks: No Nutritional Risk Poor oral hygiene: No service: No Current occupational status: employed Meds Allergies Allergy/AdvReac Type Severity Reaction Status Date / Time Penicillins [PCN] Allergy Intermediate Hives Verified 02/06/23 13:28 codeine AdvReac Intermediate Nausea Verified 02/06/23 13:28 metformin AdvReac Intermediate caused Verified 02/06/23 13:28 UTI's Home Medications Medication Instructions Recorded Confirmed Last Taken Type coenzyme Q10 10 mg capsule 10 mg PO BEDTIME 12/09/22 02/01/23 12/06/22 History cyanocobalamin (vitamin B-12) 1,000 mcg PO DAILY 12/09/22 02/01/23 12/06/22 History 1,000 mcg tablet gabapentin 100 mg capsule 1 - 3 cap PO BEDTIME PRN insomnia 12/09/22 02/01/23 12/06/22 History glipizide 5 mg tablet 2 tab PO BIDAC 12/09/22 02/01/23 12/06/22 History ibuprofen 800 mg tablet 1 tab PO TID PRN Pain 12/09/22 02/01/23 01/30/23 History sitagliptin phosphate 100 mg 1 tab PO BEDTIME 12/09/22 02/01/23 12/06/22 History tablet (Januvia) magnesium oxide 200 mg PO DAILY 01/31/23 02/01/23 Unknown History metoprolol succinate 200 mg 200 mg PO BEDTIME 01/31/23 02/01/23 Unknown History tablet,extended release 24 hr Exam Airway Mallampati Class: II TM Dist: >3cm Neck ROM: Full Loose/Missing/Broken Teeth: No Heart: ho afib cardioverted now sr Lungs: cta Assessment and Plan Assessment Anesthesia Assessment: Anesthesia Plan Discussed Final Anesthetic Review Family History of Problems with Anesthesia: No NPO: Yes ASA Class: II Final Preanesthetic Review: No Changes in Pt Med Stat, Meds/Allgs Chart Reviewed, Consent Obtained/Reviewed and Anes Risks/Benef Reviewed Patient Risk: Low Procedure Risk: Low Anesthetic Plan Anesthetic Plan: GA Disposition: Standard PACU
--- NOTE | ~2023-02-06 | FL_ITS ---
EXAMINATION: XR FLUOROSCOPY WITH IMAGES CLINICAL INFORMATION: Right kidney stone. COMPARISON: None available. TECHNIQUE: Fluoroscopy Supervised By: Dr. Hravey Echevarria. Fluoroscopy Time: 33.8 seconds. Cumulative Dose: 21.9 mGy. Images: 4. FINDINGS: There are 4 digital images obtained with retrograde ureteroscope. There is contrast opacifying right kidney pelvis. No filling defects seen within the right kidney pelvis after full distention. Visualized bones are grossly unremarkable. FL/FL guidance in OR IMPRESSION: Fluoroscopy was provided to referring physician for retrograde ureteroscope.
[2023-02-06 13:47] VITALS: BP 143/71; PULSE 68; RESP 15; TEMP 36.7; O2SAT 97
[2023-02-06] MEDS: Lactated Ringers 1,000 ML 100 ML IVCONT (13:48)
[2023-02-06 13:49] LABS: Glucose, Whole Blood 203 mg/dL (60-115)
--- NOTE | 2023-02-06 14:59 | MHC.SHP ---
Pre-Procedural Eval Section A Date of Service: 02/06/23 The patient is an INPATIENT: No Changes since office visit: No Cold of Flu in the past 2 weeks, No New Medical Problems, No Changes in Medication and No Patient answered all questions The History & Physical has been completed within 30 days and I have reviewed it.: No Section B Chief Complaint: Calculus of kidney Details of Present Illness: Prior stent placement Relevant Social History: None Present Medications: see Short Stay Collaborative assessment Medical History: No relevant PMH History of Previous Operations: Relevant previous surgery/procedure and date(s) Allergies: Allergies Allergy/AdvReac Type Severity Reaction Status Date / Time Penicillins [PCN] Allergy Intermediate Hives Verified 02/06/23 13:28 codeine AdvReac Intermediate Nausea Verified 02/06/23 13:28 metformin AdvReac Intermediate caused Verified 02/06/23 13:28 UTI's Review of Systems Sugical H&P ROS: Negative: Constitution, Cardiovascular, Respiratory, Neurological, Psychiatric, Hem-Onc, Allergic/Immunologic, Gastrointestinal, Genitourinary, Musculoskeletal, Integumentary, Endocrine and Eyes/Ears/Nose/Throat Exam Surgical H&P Exam: Normal: HEENT, Normal: Heart, Normal: Lungs, Normal: Extremities, Normal: Abdomen, Normal: Skin and Normal: Neurological Plan Diagnosis/Plan: Unchanged ( cystoscopy, right stent removal, ureteroscopy with laser lithotripsy stone basketing) I have reviewed the history and physical and performed a pertinent physical examination on my patient. No changes have occurred unless specified. Time Spent With Patient Time: Total time managing care of this patient today ____ minutes.
[2023-02-06 16:04] VITALS: BP 131/63; PULSE 68; RESP 12; TEMP 36.6; O2SAT 97
[2023-02-06 16:09] VITALS: BP 127/63; PULSE 67; RESP 14; O2SAT 98
[2023-02-06 16:14] VITALS: BP 142/43; PULSE 67; RESP 16; O2SAT 93
[2023-02-06] MEDS: Phenazopyridine HCL 100 MG TABLET PO (16:18)
[2023-02-06 16:19] VITALS: BP 118/49; PULSE 68; RESP 15; O2SAT 97
[2023-02-06 16:34] VITALS: BP 126/54; PULSE 64; RESP 20; TEMP 36.3; O2SAT 96
--- NOTE | 2023-03-16 14:28 | P.OP_ITS ---
Operative Note Operative Note Date of Service: 02/06/23 Narrative: PreOperative Diagnosis: Right proximal ureteric stone with stent Post Operative Diagnosis: Right proximal ureteric stone stent Procedure: - cystoscopy, right retrograde - removal of right ureteric stent - right ureteroscopy,stone basketing Surgeon: Dr Wale Gabriel Anesthesia: General Indications for procedure: Underwent right ureteric stenting for urosepsis approximately 6 weeks previously. Here for completion procedure. Procedure: After informed consent was verified patient was brought to the operating placed in supine position. Anesthesia was administered per protocol. Patient was placed in modified dorsal lithotomy position and prepped and draped in a sterile fashion. Safety pause time-out and side of surgery confirmed. Antibiotics confirmed. 22 Pashto cystoscope was inserted per urethra. Bladder was normal in its entirety. Both ureteric orifices were in normal position. Stent emerging from right ureteric orifice. The right ureteric orifice was cannulated and a retrograde examination was performed. No filling defects seen around stent. A Sensor guidewire was placed up to the level of the renal pelvis under fluoroscopy. The indwelling right stent was grasped and the rigid cystoscope was removed. The ureteric access sheath was placed and the inner cannula with access wire removed. The digital flexible ureteral scope was placed. The renal pelvis were examined. Small stone debris was found. This was irriga johnathon free from the bladder. Stone was found. Using the laser the stone was broken into small pieces which were too small in order to be removed in the basket. Due to dilatation prior stent placement a decision was made not to place stent. The bladder was emptied. The patient tolerated the procedure well and was extubated in the operating room, and transferred in stable condition to the recovery area. Pathology: None Drains: None
== END 2023-02-06 16:45 | disposition home or self-care (01) ==
PROVIDERS: PCP Family Medicine; Visit Provider Urology
PROC: (CPT 52353; principal; 2023-02-06 13:50)
DX: N20.1 Calculus of ureter (principal); N28.9 Disorder of kidney and ureter, unspecified; E11.9 Type 2 diabetes mellitus without complications; I48.0 Paroxysmal atrial fibrillation; Z79.01 Long term (current) use of anticoagulants; Z79.84 Long term (current) use of oral hypoglycemic drugs; Z88.0 Allergy status to penicillin; Z88.8 Allergy status to other drugs, medicaments and biological substances; Z86.16 Personal history of COVID-19; Z87.891 Personal history of nicotine dependence; Z79.899 Other long term (current) drug therapy
CPT/HCPCS: 52353; 82947; C1758; C1769; C1894; J1956; J2250; J3010; Q9967

== ENCOUNTER 2023-04-12 15:01 | Outpatient (AMB) | payer OTHER, SELFPAY ==
--- NOTE | 2023-04-12 15:12 | MHC.OFFVIS ---
Intake Intake Visit Reasons: 2 month follow up Intake Note: Patient is present for post op Operations Chief Required: No Accompanied by: Self / Same As Patient Allergies Penicillins [PCN] Allergy (Intermediate, Verified 05/17/23 15:24) Hives codeine Adverse Reaction (Intermediate, Verified 05/17/23 15:24) Nausea metformin Adverse Reaction (Intermediate, Verified 05/17/23 15:24) caused UTI's Medication List - Last Reconciled 04/12/23 by Wale Gabriel MD apixaban (Eliquis) 5 mg PO BID coenzyme Q10 10 mg PO BEDTIME cyanocobalamin (vitamin B-12) 1,000 mcg PO DAILY gabapentin 1 - 3 caps PO BEDTIME PRN glipizide 2 tabs PO BIDAC ibuprofen 1 tab PO TID PRN magnesium oxide 200 mg PO DAILY metoprolol succinate ER 200 mg PO BEDTIME phenazopyridine (Pyridium) 100 mg PO TID PRN 4 days sitagliptin phosphate (Januvia) 1 tab PO BEDTIME HPI HPI Comments History of Present Illness Details Antoinette is a pleasant female. She is a patient of . She is seen for following urologic conditions - proximal right ureteric stone Stone follow-up Will need surveillance imaging Nephrolithiasis Underwent stent placement December 2022 in [place] Had presented to hospital with urosepsis Completed procedure with stent removal Intervention - 03/28 ureteroscopy with laser lithotripsy and stent removal right side Therapeutic plan - encourage fluids - surveillance imaging PFSH Medical History Diabetes History of cardioversion History of COVID-19 Nephrolithiasis PAF (paroxysmal atrial fibrillation) Renal insufficiency Surgical History H/O colonoscopy History of cardiac cath Hx of bilateral oophorectomy Hx of cystoscopy Family History Mother Muscular dystrophy Father Diabetes Heart disease Brother Diabetes Muscular dystrophy Paternal Aunt Afib Social History Household Members: Family Household Members Other:: adult son Housing: Apartment Housing Other:: in 2 family house Are you a primary director of healthcare systems to a significant other at home: No Do you presently have visiting nurse or other home services: No Alcohol intake: current Alcohol intake frequency: holidays/special occasions only Patient Tobacco Use Status: Former Tobacco user Quit Date: 1998 Tobacco use type: Cigarette Years Smoked: 20 +/- service: No Current occupational status: employed Review of Systems Const Denies chills and Denies fever(s) Card Reports no additional complaints and Denies syncope Resp Denies cough GI Denies abdominal pain and Denies heartburn Reports as per HPI and Denies change in libido Neuro Denies syncope Psych Denies change in libido Endo Denies change in libido Physical Exam Const General: cooperative, healthy appearing, comfortable and no acute distress Orientation/consciousness: patient oriented x3 HEENT Face and sinus: Yes normal facial exam Mouth: moist mucous membranes Neck Neck: Yes normal visual inspection, Yes full ROM and Yes trachea midline Chest Chest palpation & inspection: normal inspection of the chest Resp Effort & Inspection: normal respiratory effort, able to speak in complete sentences and no respiratory distress GI Inspection: Yes normal to inspection Back/Spine/Pelvis Cervical Spine: normal cervical lordosis Thoracic/Lumbar Spine: thoracic and lumbar spine normal to inspection Skin General skin exam: no rashes or lesions noted Neuro General: patient oriented x3, gait normal, tone normal and moves all extremities Extrem General: Yes normal to inspection and Yes capillary refill normal Results AMB Urinalysis, Automated UA Leukoctes 0 Luis/uL Last Edit by [employer] on 04/12/23 15:21 UA Nitrite Negative Last Edit by [employer] on 04/12/23 15:21 UA Urobilinogen 0.2 mg/dL Last Edit by [employer] on 04/12/23 15:21 UA Protein 0 mg/dL Last Edit by [employer] on 04/12/23 15:21 UA pH 6.0 Last Edit by [employer] on 04/12/23 15:21 UA Blood 10 Nitish/uL Last Edit by [employer] on 04/12/23 15:21 UA Specific [place] 1.015 Last Edit by [employer] on 04/12/23 15:21 UA Ketone Negative Last Edit by [employer] on 04/12/23 15:21 UA Bilirubin 0 mg/dL Last Edit by [employer] on 04/12/23 15:21 UA Glucose 0 mg/dL Last Edit by Wilton Whitehead on 04/12/23 15:21 Results Reviewed Results Reviewed: Laboratory Last Values Urine pH (Auto) 6.0 04/12/23 15:14 Specific [place] (Auto) 1.015 04/12/23 15:14 Urine Protein (Auto) 0 mg/dL 04/12/23 15:14 Glucose (UA)(Auto) 0 mg/dL 04/12/23 15:14 Urine Ketones (Auto) Negative 04/12/23 15:14 Urine Blood (Auto) 10 Nitish/uL 04/12/23 15:14 Urine Nitrite (Auto) Negative 04/12/23 15:14 Urine Bilirubin (Auto) 0 mg/dL 04/12/23 15:14 Urine Urobilinogen (Auto) 0.2 mg/dL 04/12/23 15:14 Leukocyte Esterase (Auto) 0 Luis/uL 04/12/23 15:14 Assessment & Plan Assessment & Plan (1) Nephrolithiasis: Code(s): N20.0 - Calculus of kidney Plan Six month follow-up Orders: Orders US renal BI 6 Months N20.0 - Calculus of kidney AMB Urinalysis Automated 04/12/23 Z13.9 - Encounter for screening, unspecified Medications: Discontinued metoprolol succinate ER 200 mg PO DAILY 30 tabs 5RF Patient Instructions: Imaging studies, laboratory and physical exam results were discussed and reviewed in detail. No major barriers to patient understanding were identified. An opportunity to ask questions regarding the treatment plan was provided. All questions were answered. The patient expressed understanding and agreement with the above treatment plan. The patient is aware they should contact our office by phone for worsening of their current condition or the appearance of new urologic symptoms. Compliance is encouraged with any medications and followup testing that is ordered. It is a privilege to participate in the urologic care of your patient. If you have any questions or concerns regarding treatment for the above conditions, or other urologic issues, please do not hesitate to contact me. The office telephone contact is [phone]. This note is constructed using voice recognition software. While every effort has been made to ensure accuracy online merchandising manager errors may have been included. Yours sincerely, Dr Wale Gabriel MD, [facility] - Urology Providers of Expert, Compassionate Care for the Genitourinary System Coding Level of Care Code Est Pt Level 3 (00061) Diagnoses Nephrolithiasis N20.0
== END 2023-04-12 15:33 | disposition home or self-care (01) ==
LOC: HO.HUSH 15:01
PROVIDERS: PCP Family Medicine; Visit Provider Urology
DX: N20.0 Calculus of kidney (principal)
CPT/HCPCS: 99213

== ENCOUNTER → 2023-04-12 15:01 | Outpatient (BNVA) | payer OTHER, SELFPAY | PROVIDERS: PCP Family Medicine; Visit Provider Urology ==

== ENCOUNTER 2023-05-17 15:06 | Outpatient (AMB) | payer OTHER, SELFPAY ==
[2023-05-17 15:22] VITALS: BP 134/74; PULSE 71; BMI 40.4
--- NOTE | 2023-05-17 15:22 | A.OFFVIS_ITS ---
Intake Vital Signs 05/17/23 15:22 Height 5 ft 4.5 in Weight 238 lb 15.697 oz BMI 40.4 BP 134/74 Blood Pressure Location Lt brachial Position Sitting Pulse 71 Pulse Source Pulse Oximeter Intake Visit Reasons: 4 mth f/up Intake Note: 4 month follow up. Casting Machine Operator Required: No Accompanied by: Self / Same As Patient Allergies Penicillins [PCN] Allergy (Intermediate, Verified 05/17/23 15:24) Hives codeine Adverse Reaction (Intermediate, Verified 05/17/23 15:24) Nausea metformin Adverse Reaction (Intermediate, Verified 05/17/23 15:24) caused UTI's Medication List - Last Reconciled 05/17/23 by Andi Duncan MD apixaban (Eliquis) 5 mg PO BID coenzyme Q10 10 mg PO BEDTIME cyanocobalamin (vitamin B-12) 1,000 mcg PO DAILY gabapentin 1 - 3 caps PO BEDTIME PRN glipizide 2 tabs PO BIDAC magnesium oxide 200 mg PO DAILY metoprolol succinate ER 200 mg PO BEDTIME semaglutide (Ozempic) 1 mg subcut QWEEK sitagliptin phosphate (Januvia) 100 mg PO BEDTIME HPI HPI Comments History of Present Illness Details Pleasant 63-year-old female who was seen in the hospital when she presented with sepsis due to urinary tract infection and obstructive uropathy. She developed atrial fibrillation with rapid ventricular response. She underwent cardioversion and was discharged home on Toprol XL and apixaban. She is going for repeat urological procedure for kidney stones. The patient is unclear about the surgery that what exactly is going to be done. She has been taking Eliquis regularly. No concerns on her part and she has no palpitations, shortness of breath or chest discomfort. 05/17/23: She is here for follow-up. She is doing well. No palpitations. No chest discomfort shortness of breath. Taking medications regularly. Stable from the obstructive uropathy point of view. [facility] Medical History Diabetes History of cardioversion History of COVID-19 Nephrolithiasis PAF (paroxysmal atrial fibrillation) Renal insufficiency Surgical History H/O colonoscopy History of cardiac cath Hx of bilateral oophorectomy Hx of cystoscopy Family History Mother Muscular dystrophy Father Diabetes Heart disease Brother Diabetes Muscular dystrophy Paternal Aunt Afib Social History Household Members: Family Household Members Other:: adult son Housing: Apartment Housing Other:: in 2 family house Are you a primary housekeeper child care to a significant other at home: No Do you presently have visiting nurse or other home services: No Alcohol intake: current Alcohol intake frequency: holidays/special occasions only Patient Tobacco Use Status: Former Tobacco user Quit Date: 1998 Tobacco use type: Cigarette Years Smoked: 20 +/- service: No Current occupational status: employed Review of Systems Const Denies weakness ENT Denies dizziness Card Denies chest pain, Denies chest pain with activity, Denies syncope, Denies rapid heart rate, Denies pedal edema, Denies edema, Denies leg edema, Denies lightheadedness, Denies palpitations, Denies dyspnea, Denies dyspnea on exertion and Denies orthopnea Resp Denies cough, Denies dyspnea and Denies dyspnea on exertion GI Denies hematochezia and Denies change in stool character Musc Denies abnormal gait, Denies muscle cramps, Denies muscle weakness, Denies numbness, Denies radiating pain into limb and Denies tingling Neuro Denies abnormal gait, Denies dizziness, Denies syncope, Denies numbness, Denies tingling and Denies weakness Endo Denies palpitations Physical Exam Vital Signs: Last Vital Signs Pulse 71 05/17/23 15:22 BP 134/74 05/17/23 15:22 BMI result Body Mass Index 40.4 GENERAL APPEARANCE: in no acute distress, pleasant. NECK: no carotid bruit, no jugular venous distention. SKIN: no suspicious lesions, warm and dry. HEART: no murmurs, regular rate and rhythm. LUNGS: clear to auscultation bilaterally. ABDOMEN: soft, nontender. EXTREMITIES: no edema. PERIPHERAL PULSES: equal. NEUROLOGIC: No gross deficits, AAO X 3 Assessment & Plan Assessment & Plan (1) PAF (paroxysmal atrial fibrillation): Comment: w/cardioversion 12/14/22 (in patient w/nephrolithiasis)(taking eliquis & metoprolol) Code(s): I48.0 - Paroxysmal atrial fibrillation Plan 63 year female who is here for follow-up. She has paroxysmal atrial fibrillation. She has been doing well at this point. Continue with anticoagulation with Eliquis 5 mg twice a day. She is on Toprol- XL 200 mg daily. Overall no changes in medications required. She will see us back in few months. Thank you for allowing me to participate in the care of your patient. Please feel free to contact me if you have any questions. Medications: Discontinued metoprolol succinate ER 200 mg PO DAILY 30 tabs 5RF Coding Level of Care Code Est Pt Level 3 (82655) Diagnoses PAF (paroxysmal atrial fibrillation) I48.0
== END 2023-05-17 15:59 | disposition home or self-care (01) ==
PROVIDERS: Visit Provider Internal Medicine Cardiovascular Disease
DX: I48.0 Paroxysmal atrial fibrillation (principal)
CPT/HCPCS: 99213

== ENCOUNTER → 2023-05-17 15:06 | Outpatient (BNVA) | payer OTHER, SELFPAY | PROVIDERS: Visit Provider Internal Medicine Cardiovascular Disease ==

== ENCOUNTER 2023-10-09 15:36 | Outpatient (REF) | payer BC, SELFPAY ==
--- NOTE | ~2023-10-09 | US_ITS ---
EXAMINATION: US RETROPERITONEAL LIMITED (RENAL ONLY) CLINICAL INFORMATION: Calculus of kidney. COMPARISON: CT abdomen and pelvis 12/07/2022. TECHNIQUE: Real-time imaging of the kidneys. FINDINGS: RIGHT KIDNEY: 11.5 x 6.0 x 6.8 cm (SAG x AP x TRV). Partial congenital malrotation. The kidney is normal in size, contour, and echogenicity. Renal cortical thickness is normal. No calculi or focal parenchymal lesions. No hydronephrosis. LEFT KIDNEY: 12.6 x 7.0 x 7.0 cm (SAG x AP x TRV). The kidney is normal in size, contour, and echogenicity. Renal cortical thickness is normal. No focal parenchymal lesions or hydronephrosis. Scattered punctate hyperechoic foci. US/US renal BI IMPRESSION: 1. Scattered punctate hyperechoic foci in the left kidney which could represent nonobstructive calculi or vascular calcifications. 2. 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
== END 2023-10-09 15:37 | disposition home or self-care (01) ==
LOC: HO.US 15:36
PROVIDERS: PCP Family Medicine; Visit Provider Urology
DX: N20.0 Calculus of kidney (principal)
CPT/HCPCS: 76775

== ENCOUNTER 2023-10-10 11:33 | Outpatient (AMB) | payer BC, SELFPAY ==
--- NOTE | 2023-10-10 11:39 | MHC.OFFVIS ---
Intake Intake Visit Reasons: 6m/US(set) Intake Note: Patient presents for follow up nephrolithiasis/ultrasound (imaging 10/09/23) Urology Medications: none Blood Thinnner: apixaban(eliquis) Electronics Engineering Professor Required: No Accompanied by: Self / Same As Patient Allergies Penicillins [PCN] Allergy (Intermediate, Verified 10/10/23 20:21) Hives codeine Adverse Reaction (Intermediate, Verified 10/10/23 20:21) Nausea metformin Adverse Reaction (Intermediate, Verified 10/10/23 20:21) caused UTI's Medication List - Last Reconciled 10/10/23 by DAISY Jefferson apixaban (Eliquis) 5 mg PO BID coenzyme Q10 10 mg PO BEDTIME cyanocobalamin (vitamin B-12) 1,000 mcg PO DAILY gabapentin 1 - 3 caps PO BEDTIME PRN glipizide 2 tabs PO BIDAC magnesium oxide 200 mg PO DAILY metoprolol succinate ER 200 mg PO BEDTIME sitagliptin phosphate (Januvia) 100 mg PO BEDTIME HPI HPI Comments History of Present Illness Details Antoinette is a pleasant 63-year-old female patient of Dr. Lizarraga. She has a past medical history of COVID-19 x3 most recent April of 2022, nephrolithiasis with previous surgical intervention most recent December 2022, history of cardioversion, paroxysmal atrial fibrillation, renal insufficiency, and 2 diabetes. She presents to the office today for follow-up of her nephrolithiasis. In discussion with the patient today she reports to be doing and feeling well. Recent renal imaging results reviewed with the patient today. Right kidney with partial congenital malrotation. It is normal in size, contour, and echogenicity. No calculi, lesions, and or hydronephrosis noted. Left kidney with no lesions or hydronephrosis. Scattered punctate hyperechoic foci. She denies any bothersome urinary issues or concerns. She does report noting urinary frequency however relates this to her diabetes. She otherwise denies urinary urgency, incontinence, nocturia, hematuria, dysuria, foul smelling urine, changes to urinary stream, flank pain, fever, and or chills. Unable to in urine for urinalysis as patient unable to void. When asked she does report to be drinking plenty of water daily. Nephrolithiasis Underwent stent placement December 2022 in [place] Had presented to hospital with urosepsis Completed procedure with stent removal Intervention - 03/28 ureteroscopy with laser lithotripsy and stent removal right side Therapeutic plan - encourage fluids - surveillance imaging [facility] Medical History History of COVID-19 Nephrolithiasis History of cardioversion PAF (paroxysmal atrial fibrillation) Renal insufficiency Diabetes Surgical History H/O colonoscopy History of cardiac cath Hx of bilateral oophorectomy Hx of cystoscopy Family History Mother Muscular dystrophy Father Diabetes Heart disease Brother Diabetes Muscular dystrophy Paternal Aunt Afib Social History Household Members: Family Household Members Other:: adult son Housing: Apartment Housing Other:: in 2 family house Are you a primary acute care clinical nurse specialist to a significant other at home: No Do you presently have visiting nurse or other home services: No Alcohol intake: current Alcohol intake frequency: holidays/special occasions only Patient Tobacco Use Status: Former Tobacco user Quit Date: 1998 Tobacco use type: Cigarette Years Smoked: 20 +/- service: No Current occupational status: employed Review of Systems Const Reports no additional complaints Eyes Reports no additional complaints ENT Reports no additional complaints Card Reports as per HPI Resp Reports no additional complaints GI Reports no additional complaints Reports as per HPI Musc Reports no additional complaints Neuro Reports no additional complaints Psych Reports no additional complaints Endo Reports no additional complaints and Reports as per HPI Sage/Lymph Reports no additional complaints Aller/Immun Reports no additional complaints Physical Exam Const General: cooperative, healthy appearing, comfortable, no acute distress, well developed, alert and awake Orientation/consciousness: patient oriented x3 Limitations: no limitations HEENT Head: Yes normal to inspection, Yes normocephalic and Yes atraumatic Ears: hearing grossly normal bilaterally Eyes General: appearance normal, both eyes and all related structures Neck Neck: Yes normal visual inspection and Yes trachea midline Chest Chest palpation & inspection: normal inspection of the chest Resp Effort & Inspection: normal respiratory effort and able to speak in complete sentences Cardio Rate: regular rate GI Inspection: Yes normal to inspection General: Yes no CVA tenderness Back/Spine/Pelvis Back: no CVA tenderness Skin General skin exam: no rashes or lesions noted Neuro General: patient oriented x3 Extrem General: Yes normal to inspection Psych Appearance: grossly normal and well kempt Mental Status: mental status grossly normal Speech and movement: Normal speech and movement present and Clear speech present Affect: normal affect Attitude: cooperative Thought process: Normal thought process present Thought content: Normal thought content present Insight: Fair insight present (Psych) Judgement: Fair judgement present (Psych) Results Reviewed Results Reviewed: Date of Service: 10/09/23 EXAMINATION: US RETROPERITONEAL LIMITED (RENAL ONLY) FINDINGS: RIGHT KIDNEY: 11.5 x 6.0 x 6.8 cm (SAG x AP x TRV). Partial congenital malrotation. The kidney is normal in size, contour, and echogenicity. Renal cortical thickness is normal. No calculi or focal parenchymal lesions. No hydronephrosis. LEFT KIDNEY: 12.6 x 7.0 x 7.0 cm (SAG x AP x TRV). The kidney is normal in size, contour, and echogenicity. Renal cortical thickness is normal. No focal parenchymal lesions or hydronephrosis. Scattered punctate hyperechoic foci. IMPRESSION: 1. Scattered punctate hyperechoic foci in the left kidney which could represent nonobstructive calculi or vascular calcifications. 2. 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 Assessment & Plan Assessment & Plan (1) Nephrolithiasis: Code(s): N20.0 - Calculus of kidney Plan Unable to obtain urine for urinalysis as patient unable to void. Patient denies any bothersome urinary issues or concerns at this time. Recent renal imaging results reviewed with the patient today; as noted above. Patient reports be happy with current voiding parameters. Discussed, educated, and stressed the importance of continuing to drink plenty of water daily. Continue adding 1 oz of lemon juice to water daily. Will obtain renal ultrasound in 6 months Follow-up in 6 months with imaging to be completed prior; or sooner with any issues, concerns, and or questions. Patient Instructions: The patient had an opportunity to ask questions regarding the treatment plan. All questions were answered. Physical exam, labs, and imaging were discussed and reviewed in detail. As well as risks, benefits, and discussion of treatment choices. No major barriers to understanding were identified. The patient expressed understanding and agreement with the above treatment plan. The patient was made aware they should contact our office by phone for worsening of their current condition, the appearance of new symptoms, or with any questions or concerns. Compliance is encouraged with any medications and follow up testing that is ordered. It is a privilege to be allowed the opportunity to participate in? your urological care.? Again, if you have any questions or concerns If you have any questions or concerns please do not hesitate to contact me. The office is [phone]. This note is constructed using voice recognition software. While every effort has been made to ensure accuracy hatchery supervisor errors may have been included. Yours sincerely, DAISY Jefferson Coding Level of Care Code Est Pt Level 3 (08224) Diagnoses Nephrolithiasis N20.0
== END 2023-10-10 12:31 | disposition home or self-care (01) ==
PROVIDERS: PCP Family Medicine; Visit Provider Nurse Practitioner Family
DX: N20.0 Calculus of kidney (principal)
CPT/HCPCS: 99213

== ENCOUNTER → 2023-10-10 11:33 | Outpatient (BNVA) | payer BC, SELFPAY | PROVIDERS: PCP Family Medicine; Visit Provider Nurse Practitioner Family ==

== ENCOUNTER 2023-10-23 14:35 | Outpatient (AMB) | payer BC, SELFPAY ==
--- NOTE | 2023-10-23 14:55 | A.OFFVIS_ITS ---
Intake Vital Signs 10/23/23 14:56 Height 5 ft 4.5 in Weight 246 lb 0.574 oz BMI 41.6 BP 130/50 L Blood Pressure Location Lt brachial Position Sitting Pulse 75 Pulse Source Pulse Oximeter Intake Visit Reasons: 5 mth f/up Intake Note: 5 mnth f/up pt its feeling good Open Hearth Helper Required: No Accompanied by: Self / Same As Patient Allergies Penicillins [PCN] Allergy (Intermediate, Verified 10/10/23 20:21) Hives codeine Adverse Reaction (Intermediate, Verified 10/10/23 20:21) Nausea metformin Adverse Reaction (Intermediate, Verified 10/10/23 20:21) caused UTI's Medication List - Last Reconciled 10/23/23 by Andi Duncan MD apixaban (Eliquis) 5 mg PO BID coenzyme Q10 10 mg PO BEDTIME cyanocobalamin (vitamin B-12) 1,000 mcg PO DAILY gabapentin 1 - 3 caps PO BEDTIME PRN glipizide 2 tabs PO BIDAC magnesium oxide 200 mg PO DAILY metoprolol succinate ER 200 mg PO BEDTIME sitagliptin phosphate (Januvia) 100 mg PO BEDTIME HPI HPI Comments History of Present Illness Details Pleasant 63-year-old female who was seen in the hospital when she presented with sepsis due to urinary tract infection and obstructive uropathy. She developed atrial fibrillation with rapid ventricular response. She underwent cardioversion and was discharged home on Toprol XL and apixaban. She is going for repeat urological procedure for kidney stones. The patient is unclear about the surgery that what exactly is going to be done. She has been taking Eliquis regularly. No concerns on her part and she has no palpitations, shortness of breath or chest discomfort. 05/17/23: She is here for follow-up. Sh jeff is doing well. No palpitations. No chest discomfort shortness of breath. Taking medications regularly. Stable from the obstructive uropathy point of view. 10/23/2023: She returns for follow-up. She has been doing well. Tolerating Eliquis without any GI or bleed. Blood pressure control is good. She is asking whether she should consider Watchman device. I explained the rationale for the procedure and advised her that she should continue apixaban for now. [facility] Medical History History of COVID-19 Nephrolithiasis History of cardioversion PAF (paroxysmal atrial fibrillation) Renal insufficiency Diabetes Surgical History History of cardiac cath H/O colonoscopy Hx of bilateral oophorectomy Hx of cystoscopy Family History Mother Muscular dystrophy Father Diabetes Heart disease Brother Diabetes Muscular dystrophy Paternal Aunt Afib Social History Household Members: Family Household Members Other:: adult son Housing: Apartment Housing Other:: in 2 family house Are you a primary director long term care to a significant other at home: No Do you presently have visiting nurse or other home services: No Alcohol intake: current Alcohol intake frequency: holidays/special occasions only Patient Tobacco Use Status: Former Tobacco user Quit Date: 1998 Tobacco use type: Cigarette Years Smoked: 20 +/- service: No Current occupational status: employed Review of Systems Const Reports chills, Reports fatigue, Reports fever(s), Reports frequent falls, Reports weakness, Reports weight gain and Reports weight loss ENT Reports dizziness Card Reports chest pain, Reports leg edema, Reports lightheadedness, Reports palpitations, Reports dyspnea and Reports dyspnea on exertion Resp Reports cough, Reports dyspnea and Reports dyspnea on exertion GI Reports hematochezia Musc Reports abnormal gait, Reports muscle weakness, Reports numbness, Reports radiating pain into limb and Reports tingling Neuro Reports abnormal gait, Reports dizziness, Reports frequent falls, Reports numbness, Reports tingling and Reports weakness Endo Reports fatigue and Reports palpitations Physical Exam Vital Signs: Last Vital Signs Pulse 75 10/23/23 14:56 BP 130/50 L 10/23/23 14:56 BMI result Body Mass Index 41.6 GENERAL APPEARANCE: in no acute distress, pleasant. NECK: no carotid bruit, no jugular venous distention. SKIN: no suspicious lesions, warm and dry. HEART: no murmurs, regular rate and rhythm. LUNGS: clear to auscultation bilaterally. ABDOMEN: soft, nontender. EXTREMITIES: no edema. PERIPHERAL PULSES: equal. NEUROLOGIC: No gross deficits, AAO X 3 Assessment & Plan Assessment & Plan (1) PAF (paroxysmal atrial fibrillation): Comment: w/cardioversion 12/14/22 (in patient w/nephrolithiasis)(taking eliquis & metoprolol) Code(s): I48.0 - Paroxysmal atrial fibrillation Plan Pleasant 63 year female who is here for follow-up. She was seen for AFib with RVR in the setting of pyelonephritis in the hospital. She was cardioverted and was started on Eliquis and metoprolol. Since then she has been in sinus rhythm. Continue both medications for now. She was asking about possibly an device. She has no bleeding issues currently and I have advised her that we should continue anticoagulation. If he had any GI/ bleeding in the future then we can discuss about Watchman device. Thank you for allowing me to participate in the care of your patient. Please feel free to contact me if you have any questions. Coding Level of Care Code Est Pt Level 4 (16851) Diagnoses PAF (paroxysmal atrial fibrillation) I48.0
[2023-10-23 14:56] VITALS: BP 130/50; PULSE 75; BMI 41.6
== END 2023-10-23 15:42 | disposition home or self-care (01) ==
PROVIDERS: PCP Family Medicine; Visit Provider Internal Medicine Cardiovascular Disease
DX: I48.0 Paroxysmal atrial fibrillation (principal)
CPT/HCPCS: 99214

== ENCOUNTER → 2023-10-23 14:35 | Outpatient (BNVA) | payer BC, SELFPAY | PROVIDERS: PCP Family Medicine; Visit Provider Internal Medicine Cardiovascular Disease ==

== ENCOUNTER 2024-04-17 15:27 | Outpatient (AMB) | payer BC, SELFPAY ==
--- NOTE | 2024-04-17 15:50 | A.OFFVIS_ITS ---
Vital Signs 04/17/24 15:51 Height 5 ft 4.5 in Weight 249 lb 1.957 oz BMI 42.1 BP 120/60 Blood Pressure Location Lt brachial Position Sitting Pulse 66 Intake Visit Reasons: 6 month follow up Creative Coordinator Required: No Accompanied by: Self / Same As Patient Allergies Penicillins [PCN] Allergy (Intermediate, Verified 10/10/23 20:21) Hives codeine Adverse Reaction (Intermediate, Verified 10/10/23 20:21) Nausea metformin Adverse Reaction (Intermediate, Verified 10/10/23 20:21) caused UTI's Medication List - Last Reconciled 04/17/24 by Andi Duncan MD apixaban (Eliquis) 5 mg PO BID coenzyme Q10 10 mg PO BEDTIME cyanocobalamin (vitamin B-12) 1,000 mcg PO DAILY gabapentin 1 - 3 caps PO BEDTIME PRN glipizide 2 tabs PO BIDAC magnesium oxide 200 mg PO DAILY metoprolol succinate ER 200 mg PO BEDTIME sitagliptin phosphate (Januvia) 100 mg PO BEDTIME HPI Comments Details: Pleasant 63-year-old female who was seen in the hospital when she presented with sepsis due to urinary tract infection and obstructive uropathy. She developed atrial fibrillation with rapid ventricular response. She underwent cardioversio n and was discharged home on Toprol XL and apixaban. She is going for repeat urological procedure for kidney stones. The patient is unclear about the surgery that what exactly is going to be done. She has been taking Eliquis regularly. No concerns on her part and she has no palpitations, shortness of breath or chest discomfort. 05/17/23: She is here for follow-up. She is doing well. No palpitations. No chest discomfort shortness of breath. Taking medications regularly. Stable from the obstructive uropathy point of view. 10/23/2023: She returns for follow-up. She has been doing well. Tolerating Eliquis without any GI or bleed. Blood pressure control is good. She is asking whether she should consider Watchman device. I explained the rationale for the procedure and advised her that she should continue apixaban for now. 04/17/24: Here for f/u. No palpitations. Taking meds regularly. [facility] Medical History History of COVID-19 Nephrolithiasis History of cardioversion PAF (paroxysmal atrial fibrillation) Renal insufficiency Diabetes Surgical History History of cardiac cath H/O colonoscopy Hx of bilateral oophorectomy Hx of cystoscopy Family History Mother Muscular dystrophy Father Diabetes Heart disease Brother Diabetes Muscular dystrophy Paternal Aunt Afib Social History Household Members: Family Household Members Other:: adult son Housing: Apartment Housing Other:: in 2 family house Are you a primary primary care nurse to a significant other at home: No Do you presently have visiting nurse or other home services: No Alcohol intake: current Alcohol intake frequency: holidays/special occasions only Patient Tobacco Use Status: Former Tobacco user Tobacco use type: Cigarette Years Smoked: 20 +/- service: No Current occupational status: employed Physical Exam GENERAL APPEARANCE: in no acute distress, pleasant. NECK: no carotid bruit, no jugular venous distention. SKIN: no suspicious lesions, warm and dry. HEART: no murmurs, regular rate and rhythm. LUNGS: clear to auscultation bilaterally. ABDOMEN: soft, nontender. EXTREMITIES: no edema. PERIPHERAL PULSES: equal. NEUROLOGIC: No gross deficits, AAO X 3 Office Procedures EKG Details: NSR 66/min, normal ECG, QTc 410 msec. [id number], Complete Assessment & Plan Assessment & Plan (1) PAF (paroxysmal atrial fibrillation): Comment: w/cardioversion 12/14/22 (in patient w/nephrolithiasis)(taking eliquis & metoprolol) Code(s): I48.0 - Paroxysmal atrial fibrillation Category: Medical Plan Pleasant 63 year female who is here for follow-up. She was seen for AFib with RVR in the setting of pyelonephritis in the hospital. She was cardioverted and was started on Eliquis and metoprolol. Since then she has been in sinus rhythm. Continue both medications for now. Clinically stable. Thank you for allowing me to participate in the care of your patient. Please feel free to contact me if you have any questions. Coding Level of Care Code Est Pt Level 4 (41708) Diagnoses PAF (paroxysmal atrial fibrillation) I48.0 CPT Codes EKG - CPT: 14624-[id number], Complete ([id number])
[2024-04-17 15:51] VITALS: BP 120/60; PULSE 66; BMI 42.1
== END 2024-04-17 16:06 | disposition home or self-care (01) ==
PROVIDERS: PCP Family Medicine; Visit Provider Internal Medicine Cardiovascular Disease
DX: I48.0 Paroxysmal atrial fibrillation (principal)
CPT/HCPCS: 93010; 99214

== ENCOUNTER → 2024-04-17 15:27 | Outpatient (BNVA) | payer BC, SELFPAY | PROVIDERS: PCP Family Medicine; Visit Provider Internal Medicine Cardiovascular Disease | DX: I48.0 Paroxysmal atrial fibrillation (principal); Z79.01 Long term (current) use of anticoagulants; Z79.899 Other long term (current) drug therapy | CPT/HCPCS: 93005 ==

== ENCOUNTER 2024-04-19 10:42 | Outpatient (REF) | payer BC, SELFPAY ==
--- NOTE | ~2024-04-19 | US_ITS ---
EXAMINATION: US RETROPERITONEAL LIMITED (RENAL ONLY) CLINICAL INFORMATION: Calculus of kidney. COMPARISON: Renal ultrasound 10/09/2023, CT abdomen and pelvis 12/07/2022 TECHNIQUE: Real-time imaging of the kidneys. FINDINGS: RIGHT KIDNEY: 12.2 x 5.1 x 6.3 cm (SAG x AP x TRV). The kidney is normal in size, contour, and echogenicity. Renal cortical thickness is normal. No calculi or focal parenchymal lesions. No hydronephrosis. LEFT KIDNEY: 13.3 x 5.9 x 5.6 cm (SAG x AP x TRV). The kidney is normal in size, contour, and echogenicity. Renal cortical thickness is normal. No calculi or focal parenchymal lesions. No hydronephrosis. US/US renal BI IMPRESSION: No visible nephrolithiasis. No hydronephrosis.
== END 2024-04-19 10:43 | disposition home or self-care (01) ==
LOC: HO.US 10:42
PROVIDERS: PCP Family Medicine; Visit Provider Urology
DX: N20.0 Calculus of kidney (principal)
CPT/HCPCS: 76775

== ENCOUNTER 2024-05-22 13:51 | Outpatient (AMB) | payer BC, SELFPAY ==
--- NOTE | 2024-05-22 14:22 | MHC.OFFVIS ---
Intake Visit Reasons: 6m/US(set) Intake Note: Patient is Present for Follow Up Urology Medication: None Antibiotic Allergies:Penicillins Blood Thinners: Eliquis Diabetic Med: Januvia Manager Field Services Required: No Allergies Penicillins [PCN] Allergy (Intermediate, Verified 05/22/24 14:26) Hives codeine Adverse Reaction (Intermediate, Verified 05/22/24 14:26) Nausea metformin Adverse Reaction (Intermediate, Verified 05/22/24 14:26) caused UTI's Medication List - Last Reconciled 05/22/24 by Wale Gabriel MD apixaban (Eliquis) 5 mg PO BID coenzyme Q10 10 mg PO BEDTIME cyanocobalamin (vitamin B-12) 1,000 mcg PO DAILY gabapentin 1 - 3 caps PO BEDTIME PRN glipizide 2 tabs PO BIDAC magnesium oxide 200 mg PO DAILY metoprolol succinate ER 200 mg PO BEDTIME sitagliptin phosphate (Januvia) 100 mg PO BEDTIME HPI Comments Details: Antoinette is a pleasant female. She is a patient of Dr. Lizarraga. She is seen for following urologic conditions - proximal right ureteric stone No stone seen on follow-up Background diabetes places her at high risk for renal stones Suggest vitamin B6 Encourage fluid intake target 80 oz Nephrolithiasis Underwent stent placement December 2022 in [place] Had presented to hospital with urosepsis Completed procedure with stent removal Intervention - 03/28 ureteroscopy with laser lithotripsy and stent removal right side - 04/29 renal ultrasound no stones Therapeutic plan - encourage fluids - surveillance imaging PFSH Medical History History of COVID-19 Nephrolithiasis History of cardioversion PAF (paroxysmal atrial fibrillation) Renal insufficiency Diabetes Surgical History History of cardiac cath H/O colonoscopy Hx of bilateral oophorectomy Hx of cystoscopy Family History Mother Muscular dystrophy Father Diabetes Heart disease Brother Diabetes Muscular dystrophy Paternal Aunt Afib Social History Household Members: Family Household Members Other:: adult son Housing: Apartment Housing Other:: in 2 family house Are you a primary home care rn to a significant other at home: No Do you presently have visiting nurse or other home services: No Alcohol intake: current Alcohol intake frequency: holidays/special occasions only Patient Tobacco Use Status: Former Tobacco user Tobacco use type: Cigarette Years Smoked: 20 +/- service: No Current occupational status: employed Assessment & Plan Assessment & Plan (1) Nephrolithiasis: Code(s): N20.0 - Calculus of kidney Category: Medical Plan Twelve month follow-up renal ultrasound Orders: Orders US renal BI 04/19/24 DAISY Jefferson N20.0 - Calculus of kidney US renal BI 12 Months Wale Gabriel MD N20.0 - Calculus of kidney Patient Instructions: Imaging studies, laboratory and physical exam results were discussed and reviewed in detail. No major barriers to patient understanding were identified. An opportunity to ask questions regarding the treatment plan was provided. All questions were answered. The patient expressed understanding and agreement with the above treatment plan. The patient is aware they should contact our office by phone for worsening of their current condition or the appearance of new urologic symptoms. Compliance is encouraged with any medications and followup testing that is ordered. It is a privilege to participate in the urologic care of your patient. If you have any questions or concerns regarding treatment for the above conditions, or other urologic issues, please do not hesitate to contact me. The office telephone contact is [phone]. This note is constructed using voice recognition software. While every effort has been made to ensure accuracy supervisor paper products errors may have been included. Yours sincerely, Dr Wale Gabriel MD, [facility] - Urology Providers of Expert, Compassionate Care for the Genitourinary System Coding Level of Care Code Est Pt Level 3 (16932) Diagnoses Nephrolithiasis N20.0
== END 2024-05-22 14:40 | disposition home or self-care (01) ==
PROVIDERS: PCP Family Medicine; Visit Provider Urology
DX: N20.0 Calculus of kidney (principal)
CPT/HCPCS: 99213

== ENCOUNTER → 2024-05-22 13:51 | Outpatient (BNVA) | payer BC, SELFPAY | PROVIDERS: PCP Family Medicine; Visit Provider Urology | DX: N20.0 Calculus of kidney (principal) ==

== ENCOUNTER 2024-10-16 15:21 | Outpatient (AMB) | payer BC, SELFPAY ==
[2024-10-16 15:35] VITALS: BP 130/60; PULSE 67; BMI 41.9
--- NOTE | 2024-10-16 15:35 | A.OFFVIS_ITS ---
Vital Signs 10/16/24 15:35 Height 5 ft 4.5 in Weight 248 lb 3.848 oz BMI 41.9 BP 130/60 Blood Pressure Location Rt brachial Position Sitting Pulse 67 Pulse Source Pulse Oximeter Intake Visit Reasons: 6m follow up Intake Note: 6 mth f/up Loom Setter Fourdrinier Required: No Accompanied by: Self / Same As Patient Allergies Penicillins [PCN] Allergy (Intermediate, Verified 05/22/24 14:26) Hives codeine Adverse Reaction (Intermediate, Verified 05/22/24 14:26) Nausea metformin Adverse Reaction (Intermediate, Verified 05/22/24 14:26) caused UTI's Medication List - Last Reconciled 10/16/24 by Andi Duncan MD apixaban (Eliquis) 5 mg PO BID coenzyme Q10 10 mg PO BEDTIME cyanocobalamin (vitamin B-12) 1,000 mcg PO DAILY gabapentin 1 - 3 caps PO BEDTIME PRN glipizide 2 tabs PO BIDAC magnesium oxide 200 mg PO DAILY metoprolol succinate ER 200 mg PO BEDTIME pyridoxine (vitamin B6) 50 mg PO DAILY sitagliptin phosphate (Januvia) 100 mg PO BEDTIME HPI Comments Details: Pleasant 64-year-old female who was seen in the hospital when she presented with sepsis due to urinary tract infection and obstructive uropathy. She developed atrial fibrillation with rapid ventricular response. She underwent cardioversion and was discharged home on Toprol XL and apixaban. She is going for repeat urological procedure for kidney stones. The patient is unclear about the surgery that what exactly is going to be done. She has been taking Eliquis regularly. No concerns on her part and she has no palpitations, shortness of breath or chest discomfort. 05/17/23: She is here for follow-up. She is doing well. No palpitations. No chest discomfort shortness of breath. Taking medications regularly. Stable from the obstructive uropathy point of view. 10/23/2023: She returns for follow-up. She has been doing well. Tolerating Eliquis without any GI or bleed. Blood pressure control is good. She is asking whether she should consider Watchman device. I explained the rationale for the procedure and advised her that she should continue apixaban for now. 04/17/24: Here for f/u. No palpitations. Taking meds regularly. 10/16/2024: She is here for follow-up. Denying any palpitations. Continues to be in sinus rhythm. Taking Eliquis without any problems. [facility] Medical History History of COVID-19 Nephrolithiasis History of cardioversion PAF (paroxysmal atrial fibrillation) Renal insufficiency Diabetes Surgical History History of cardiac cath H/O colonoscopy Hx of bilateral oophorectomy Hx of cystoscopy Family History Mother Muscular dystrophy Father Diabetes Heart disease Brother Diabetes Muscular dystrophy Paternal Aunt Afib Social History Household Members: Family Household Members Other:: adult son Housing: Apartment Housing Other:: in 2 family house Are you a primary dog day care attendant to a significant other at home: No Do you presently have visiting nurse or other home services: No Alcohol intake: current Alcohol intake frequency: holidays/special occasions only Patient Tobacco Use Status: Former Tobacco user Tobacco use type: Cigarette Years Smoked: 20 +/- service: No Current occupational status: employed Review of Systems Const Denies chills, Denies fatigue, Denies fever(s), Denies frequent falls, Denies weakness, Denies weight gain and Denies weight loss ENT Denies dizziness Card Denies chest pain, Denies leg edema, Denies lightheadedness, Denies palpitations, Denies dyspnea and Denies dyspnea on exertion Resp Denies cough, Denies dyspnea and Denies dyspnea on exertion GI Denies hematochezia Musc Denies abnormal gait, Denies muscle weakness, Denies numbness, Denies radiating pain into limb and Denies tingling Neuro Denies abnormal gait, Denies dizziness, Denies frequent falls, Denies numbness, Denies tingling and Denies weakness Endo Denies fatigue and Denies palpitations Physical Exam Vital Signs: Last Vital Signs Pulse 67 10/16/24 15:35 BP 130/60 10/16/24 15:35 BMI result Body Mass Index 41.9 GENERAL APPEARANCE: in no acute distress, pleasant. NECK: no carotid bruit, no jugular venous distention. SKIN: no suspicious lesions, warm and dry. HEART: no murmurs, regular rate and rhythm. LUNGS: clear to auscultation bilaterally. ABDOMEN: soft, nontender. EXTREMITIES: no edema. PERIPHERAL PULSES: equal. NEUROLOGIC: No gross deficits, AAO X 3 Assessment & Plan Assessment & Plan (1) PAF (paroxysmal atrial fibrillation): Comment: w/cardioversion 12/14/22 (in patient w/nephrolithiasis)(taking eliquis & metoprolol) Code(s): I48.0 - Paroxysmal atrial fibrillation Category: Medical Plan Pleasant 64 year female who is here for follow-up. She has background history of paroxysmal atrial fibrillation setting of pyelonephritis. She is been in sinus rhythm since then and has been doing well. She is on 200 mg of Toprol XL and Eliquis 5 mg twice a day. She has daytime somnolence. Obstructive sleep apnea is a trigger for atrial fibrillation. I have advised her to do a home sleep study. With a significant hypoxia at night then we will arrange in-hospital sleep study. Thank you for allowing me to participate in the care of your patient. Please feel free to contact me if you have any questions. Orders: Orders RT home sleep study Today G47.30 - Sleep apnea, unspecified Coding Level of Care Code Est Pt Level 4 (70873) Diagnoses PAF (paroxysmal atrial fibrillation) I48.0
--- OUTSIDE RECORDS SUMMARY | 2024-10-17 03:02 | XMS_ITS | Patient Health Record ---
Author Organization [facility] Address [address] [place] [address] Care Team Providers Care Flask Pusher Name Role Phone Marlys WRAY, Dianne Starr Primary Care Provider Bianca Cabrera Unavailable [phone] Allergies No Known Allergies Reason For Referral No Information Medications Medication SIG (Take, Route, Frequency, Duration) Notes Start Date End Date Status hydroCHLOROthiazide 12.5 MG 1 tablet in the morning Orally Once a day for 30 day(s) Active Multivitamin Active Physical Therapy . . . 2-3x/week for 3- 4 weeks 12/28/2021 Active Losartan Potassium 50 MG 1 tablet Orally Once a day for 30 day(s) Active Levothyroxine Sodium 137 MCG 1 tablet in the morning on an empty stomach Orally Once a day for 30 day(s) Active Levothyroxine Sodium 137 MCG 1 tablet in the morning on an empty stomach Orally Once a day for 30 day(s) Active Losartan Potassium 50 MG 1 tablet Orally Once a day for 30 day(s) Active hydroCHLOROthiazide 12.5 MG 1 tablet in the morning Orally Once a day for 30 day(s) Active Immunizations Vaccine Route Administration Date Status Comme nts COVID-19 Moderna Vaccine Unknown 09/16/2021 Administered First Dose:11/27/2020 Second Dose:12/23/2020 Social History Tobacco Use: Social History Observation Description Date Details (start date - stop date) Never Smoker NA - NA Tobacco Use/Smoking Question Answer Notes Are you a: nonsmoker Alcohol Screen Question Answer Notes Did you have a drink containing alcohol in the p ast year? Yes Points 0 Interpretation Negative Problems Problem Type SNOMED Code ICD Code Onset Dates Problem Status W/U Status Risk Notes Problem [id number] Osteoarthritis o f right ankle and foot (M19.071) Active confirmed Problem 86957808 Osteoarthritis o f left ankle and foot (M19.072) Active confirmed Plan Of Treatment Pending Test Test Name Order Date X ray : Foot, left 3V 12/28/2021 X ray : Foot, right 3V 12/28/2021 Insurance Providers Payer Name Payer Address Payer Phone Subscriber Number Group Number Insured Name Patient Relationship to Insured Coverage Start Date Coverage End Date [employer] [address] [place] [address] [id number] Antoinette George Self - patient is the insured Medical (General) History Medical History History ICD Code High blood pressure thyroid Measles Mumps Chicken pox Surgical History Surgery Date(Month/Year) tonsillectomy 1964 hysteroscopy 01/2021 wisdom teeth extraction colonoscopy 12/2020
== END 2024-10-16 15:49 | disposition home or self-care (01) ==
PROVIDERS: PCP Family Medicine; Visit Provider Internal Medicine Cardiovascular Disease
DX: I48.0 Paroxysmal atrial fibrillation (principal)
CPT/HCPCS: 99214

== ENCOUNTER → 2024-11-27 08:37 | Outpatient (REF) | payer BC, SELFPAY ==
--- OUTSIDE RECORDS SUMMARY | 2024-11-27 08:54 | XMS_ITS | Clinical Summary ---
Author Organization [facility] Address [address] [place] [id number] Care Team Providers Care Political Reporter Name Role Phone Pcp, No Primary Care Provider Unavailabl e Allergies Active Allergy Reactions Criticality Noted Date Comments Codeine Rash/Dermatitis Low 10/19/2019 Metformin Unknown/Patient and Family Unable to Define Medium 10/19/2019 uti's Penicillins Hives Medium 10/19/2019 Medications Medication Sig Dispensed Refills Start Date End Date Status losartan (COZAAR) 25 MG tablet Take 25 mg by mouth daily. Active glipiZIDE (GLUCOTROL) 5 MG tablet Take 5 mg by mouth every morning before breakfast. Active aspirin enteric coated (ECOTRIN LOW STRENGTH) 81 MG EC tablet Take 81 mg by mouth daily. Active mupirocin (BACTROBAN) 2 % ointmentIndications:F olliculitis Apply topically 3 (three) times a day. 22 g 10/19/2019 Active Immunizations Name Administration Dates Next Due Influenza (AFLURIA/FLUZONE) Inactivated/Split Quadrivalent with Preservative IM 10/19/2019(Deferred: Patient Refused) Social History Tobacco Use Types Packs/Day Years Used Date Smoking Tobacco: Former Smokeless Tobacco: Never Alcohol Use Standard Drinks/Week Comments Yes 0 (1 standard drink = 0.6 oz pur e alcohol) Sex and Gender Information Value Date Recorded Sex Assigned at Not on file Gender Identity Not on file Sexual Orientation Not on file Last Filed Vital Signs Vital Sign Reading Time Taken Comments Blood Pressure 144/85 10/19/2019 9:40 AM EST Pulse 81 10/19/2019 9:40 AM EST Temperature 36.7 ??C (98.1 ??F) 10/19/2019 9:40 AM ES T Respiratory Rate - - Oxygen Saturation 97% 10/19/2019 9:40 AM EST Inhaled Oxygen Concentration - - Weight 106 kg (233 lb) 10/19/2019 9:40 AM EST Height 162.6 cm (5' 4 ) 10/19/2019 9:40 AM EST Body Mass Index 39.99 10/19/2019 9:40 AM EST Plan of Treatment Health Maintenance Due Date Last Done Comments Hepatitis C Virus Screening 1960 DTaP/Tdap/Td Vaccines (1 - Tdap) 1977 Mammogram 1998 Colonoscopy 2003 Pneumococcal Vaccines 50+ (1 of 1 - PCV) 2008 Zoster (Shingles) Vaccine (1 of 2) 2008 DXA Bone Density (Females,Ag es 65 and older) 2023 Influenza Vaccine 06/06/2024 COVID-19 Vaccine ( - 2023-2 5 season) 2024 RSV Vaccine 60 years and old er and Patients (1 - 1-dose 75+ series) 2033 Hepatitis B Vaccines Aged Out No long er eligible based on patient's age to complete this topic Care Teams Political Reporter Relationship Specialty Start Date End Date Pcp, No PCP - General General Medicine 10/19/19
== END ==
LOC: HO.SL 08:37
PROVIDERS: PCP Family Medicine; Visit Provider Internal Medicine Cardiovascular Disease
DX: Z13.89 Encounter for screening for other disorder (principal)

== ENCOUNTER 2024-12-30 09:07 | Emergency (ER) | payer BC, SELFPAY ==
--- NOTE | ~2024-12-30 | XR_ITS ---
EXAMINATION: XR CHEST CLINICAL INFORMATION: CP COMPARISON: None available. TECHNIQUE: PA and lateral views of the chest. FINDINGS: Mild cardiac enlargement. Mediastinal and hilar contours are normal. The lungs are clear bilaterally. There is no pneumothorax or pleural effusion. There is no focal osseous or soft tissue abnormality. There are degenerative spinal changes. XR/XR chest 2V IMPRESSION: 1. Mild cardiac enlargement. 2. No active pulmonary disease. Electronically signed by: Navneet Oviedo MD 12/30/2024 01:47 PM EST
[2024-12-30 09:25] VITALS: BP 169/81; PULSE 64; RESP 16; TEMP 36.6; O2SAT 98; BMI 24.7
[2024-12-30 10:27] LABS: MANUAL DIFF FLAG NO
[2024-12-30 10:29] LABS: Basophils Percent Auto 0.3 % (0-2); Eosinophils Absolute Auto 0.2 X10*3/uL (0.0-0.4); Eosinophils Percent Auto 2.5 % (0-4); Hematocrit 42.5 % (37.0-47.0); Hemoglobin 14.2 g/dl (12.0-16.0); Imm Gran Abs Auto 0.04 X10*3/uL (0.00-0.03); Imm Gran Pct Auto 0.5 % (0.0-0.4); Lymphocytes Absolute Auto 2.2 X10*3/uL (1.2-4.9); Lymphocytes Percent Auto 24.9 % (20-40); Mean Corpuscular HGB Conc 33.4 g/dl (31.0-35.0); Mean Corpuscular Hemoglobin 28.9 pg (27.0-33.0); Mean Corpuscular Volume 86.6 fL (80.0-98.0); Mean Platelet Volume 8.7 fL (9.4-12.3); Monocytes Absolute Auto 0.8 X10*3/uL (0.1-1.2); Monocytes Percent Auto 8.9 % (2-11); Neutrophils Absolute Auto 5.5 x10*3/uL (2.0-8.3); Neutrophils Percent Auto 62.9 % (45-73); Platelet Count 321 X10*3/uL (160-400); Red Blood Count 4.91 X10*6/uL (4.20-5.50); Red Cell Distribution Width 12.7 % (11.0-16.0); White Blood Count 8.8 X10*3/uL (4.8-10.8)
[2024-12-30 10:36] LABS: Appearance Urine Cloudy; Color Urine Yellow; Glucose Urine UA 100 mg/dL (Negative); Leukocyte Esterase Urine Negative (Negative); Nitrite Urine Negative (Negative); PH 5.5 (5.0-9.0); Specific Gravity - Urine >= 1.030 (1.005-1.025); UMIC TRIGGER UACC YES; Urine Blood Negative (Negative); Urine Ketones Trace mg/dL (Negative); Urine Protein 30 (1+) mg/dL (Neg-Trace)
[2024-12-30 10:38] LABS: Bacteria Urine 2+ (None Seen); Hyaline Casts Urine 0-2 /LPF (0-2); RBC Urine 0-2 /HPF (0-2); Squamous Epithelial Cell Urine >20 /HPF (0-2); WBC Urine 0-5 /HPF (0-5)
[2024-12-30 10:47] LABS: Amphetamine Screen Urine Not Detected (Not Detect); Barbiturates, Urine Not Detected (Not Detect); Benzodiazepines Screen Urine Not Detected (Not Detect); Buprenorphine Scr Not Detected (Not Detect); Cannabinoid Screen Urine Not Detected (Not Detect); Cocaine Screen Urine Not Detected (Not Detect); Fentanyl, urine Not Detected (Not Detect); Methadone Screen, Urine Not Detected (Not Detect); Opiate Screen Urine Not Detected (Not Detect); Oxycodone Screen Urine Not Detected (Not Detect); Phencyclidine Screen Urine Not Detected (Not Detect)
[2024-12-30 10:55] LABS: Ethanol < 10 mg/dL
[2024-12-30 10:58] LABS: Alanine Aminotransferase 24 U/L (0-31); Albumin Level 3.9 g/dL (3.5-5.0); Alkaline Phosphatase 80 U/L (39-117); Anion Gap 12 (12-20); Aspartate Amino Transferase 19 U/L (5-31); Bilirubin Direct 0.2 mg/dL (0.0-0.5); Bilirubin Total 0.4 mg/dL (0.0-1.0); Blood Urea Nitrogen 14 mg/dL (9-16); Calcium 9.4 mg/dL (8.4-10.2); Carbon Dioxide 28 mmol/L (22-29); Chloride 106 mmol/L (96-108); Creatinine Clr Calc Pharmacy 67.2; Estimated Glomerular Filt Rate > 60; Glucose Random 210 mg/dL (60-115); Magnesium 1.8 mg/dL (1.6-2.6); Potassium 4.6 mmol/L (3.3-5.1); Sodium 141 mmol/L (135-145); Total Protein 7.1 g/dL (6.5-8.0)
[2024-12-30 11:11] LABS: TSH reflex Free T4 0.71 uIU/mL (0.32-4.0)
--- NOTE | 2024-12-30 12:04 | ED_ITS ---
HPI - Psych General Chief Complaint: Behavioral Concerns Stated Complaint: anxiety Time Seen by Provider: 12/30/24 11:59 Source: patient Mode of arrival: ambulatory Limitations: no limitations History of Present Illness ED Provider: Nina Zafar PA-C HPI Narrative: This is a 64-year-old female, with a past medical history of noninsulin dependent diabetes, CKD, and atrial fibrillation on Eliquis and metoprolol, who presents emergency department with complaints of increasing anxiety and depression. Patient reports that 2 years ago her partner had . States that she never really coped with this. She also reports that in October her best friend also . 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 She states that when her best friend in October, she continue to work. She states that she is not fully dealt with the loss of her partner, best friend, as well as her job that she was anticipating working for until she retired. She states that since Monday she has had a very difficult time, unable to perform her activities of daily living. She states that she awoke on Monday, and was unable to get herself to work due to increased stressors, anxiety and depression. She states that she has contacted her primary care physician who is unable to see your for another week. She also reports that she went to an urgent care and was told that there was nothing that they could do to help. She states that she does have a therapist who discharged her, advising that if she needed anything to reach out. She states that she did reach out however has not heard back from him. She denies any SI or HI. No auditory or visual hallucinations. She does report since Monday she has felt some chest tightness/shortness of breath, associated with her anxiety. She denies any sharp pleuritic pain. No palpitations. Denies any fevers, chills, dizziness, blurred vision, shortness of breath, abdominal pain, nausea, vomiting or diarrhea. No other complaints or concerns at this time. MD complaint: feels depressed and anxiety History of same: Yes Relieving factors: none Exacerbating factors: none Context: significant life stressor Associated psychiatric symptoms: depression Associated symptoms: shortness of breath Treatments prior to arrival: none Related Data Home Medications ?Medication ?Instructions ?Recorded ?Confirmed cyanocobalamin (vitamin B-12) 1,000 mcg PO DAILY 12/09/22 10/16/24 1,000 mcg tablet gabapentin 100 mg capsule 1 - 3 cap PO BEDTIME PRN insomnia 12/09/22 10/16/24 glipizide 5 mg tablet 2 tab PO BIDAC 12/09/22 10/16/24 magnesium oxide 200 mg PO DAILY 01/31/23 10/16/24 sitagliptin phosphate 100 mg 100 mg PO BEDTIME 05/17/23 10/16/24 tablet (Januvia) coenzyme Q10 10 mg capsule 10 mg PO BEDTIME 10/23/23 10/16/24 pyridoxine (vitamin B6) 50 mg 50 mg PO DAILY 10/16/24 10/16/24 tablet Previous Rx's ?Medication ?Instructions ?Recorded apixaban 5 mg tablet (Eliquis) 5 mg PO BID #60 tabs 12/15/22 metoprolol succinate 200 mg 200 mg PO BEDTIME #90 tabs 06/17/24 tablet,extended release 24 hr Allergies Allergy/AdvReac Type Severity Reaction Status Date / Time Penicillins [PCN] Allergy Intermediate Hives Verified 12/30/24 09:28 codeine AdvReac Intermediate Nausea Verified 12/30/24 09:28 metformin AdvReac Intermediate caused Verified 12/30/24 09:28 UTI's Review of Systems 2 Review of Systems: Yes all other systems are reviewed and are negative Constitutional: Constitutional: Reports as per [facility] Past Medical History Medical History History of COVID-19 Nephrolithiasis History of cardioversion PAF (paroxysmal atrial fibrillation) Renal insufficiency Diabetes Surgical History History of cardiac cath H/O colonoscopy Hx of bilateral oophorectomy Hx of cystoscopy Family History Family History Mother Muscular dystrophy Father Diabetes Heart disease Brother Diabetes Muscular dystrophy Paternal Aunt Afib Social History Social History Household Members: Family Household Members Other:: adult son Housing: Apartment Housing Other:: in 2 family house Are you a primary behavioral health care manager to a significant other at home: No Do you presently have visiting nurse or other home services: No Alcohol intake: current Alcohol intake frequency: holidays/special occasions only Patient Tobacco Use Status: Former Tobacco user Tobacco use type: Cigarette Years Smoked: 20 +/- Advance Directives: No Advance Directives Information Provided: Yes service: No Current occupational status: employed Physical Exam 2 Vital Signs: Vital Signs: Last Vital Signs Temp 98 F 12/30/24 09:25 Pulse 64 12/30/24 09:25 Resp 16 12/30/24 09:25 BP 169/81 H 12/30/24 09:25 Pulse Ox 98 12/30/24 09:25 O2 Del Method Room Air 12/30/24 09:25 BMI result Body Mass Index 24.7 Const: General: cooperative, comfortable and no acute distress O rientation/consciousness: patient oriented x3 Limitations: no limitations HEENT: Head: Yes normal to inspection, Yes normocephalic and Yes atraumatic Ears: hearing grossly normal bilaterally General nose exam: Normal external nose present Face and sinus: Yes normal facial exam Mouth: Normal oral and palatal mucosa present, oropharynx normal and moist mucous membranes Throat: Yes posterior oropharynx normal Eyes: General: appearance normal, both eyes and all related structures E yelids: Yes eyelids normal Conjunctivae: conjunctivae normal Sclerae: s clerae normal Pupils: Equal, round and reactive pupils present EOM: EOMs intact bilaterally Neck: Neck: Yes normal visual inspection, Yes full ROM and Yes no lymphadenopathy Lymphatic: no lymphadenopathy noted Chest: Chest palpation & inspection: normal inspection of the chest Resp: Effort & Inspection: normal respiratory effort and able to speak in complete sentences Auscultation: clear to auscultation bilaterally, no crackles, no rales, no rhonchi and no wheezes Cardio: Rate: regular rate Rhythm: regular rhythm Heart sounds: S1 normal heart sound present and S2 normal heart sound present GI: Inspection: Yes normal to inspection Skin: General skin exam: no rashes or lesions noted Trauma: no lacerations or abrasions Wounds: no wounds Neuro: General: patient oriented x3 and moves all extremities Cranial nerves: Yes Equal, round and reactive pupils present Extrem: General: Yes normal to inspection Right upper extremity: normal to inspection Left upper extremity: normal to inspection Right lower extremity: normal to inspection Left lower extremity: normal to inspection Psych: Appearance: grossly normal Mental Status: mental status grossly normal Speech and movement: Normal speech and movement present and Clear speech present Affect: Sad affect present Attitude: cooperative Thought process: Normal thought process present Insight: Fair insight present (Psych) Judgement: Fair judgement present (Psych) Course Reevaluation(s) Reevaluation #1: Chest x-ray revealing cardiomegaly, EKG revealing sinus bradycardia, at a ventricular rate of 58 beats per minute, no ST elevation or depression. At this time, patient is medically cleared, pending care team consult. Time: 14:36 Reevaluation #2: Patient does not meet inpatient level criteria. Discussed with patient, she is feeling much better, she received resources from the care team. Given strict return precautions. Also discussed overall workup with patient. Patient stable for discharge. Time: 16:12 Medical Decision Making Medical Decision Making [facility] Narrative: This is a 64-year-old female, with a history of AFib on Eliquis and metoprolol, diabetes, who presents emergency department with complaints of increasing anxiety and depression. On arrival, blood pressure mildly elevated 169/81, all other vital signs within normal limits. She is speaking in full sentences under no acute distress. She does become tearful when discussing her reasons for coming in today. She denies any SI or HI. No auditory or visual hallucinations. She does report some shortness for breath and chest tightness, which she has had since Monday. She associates this with her anxiety. Lungs are clear to auscultation bilaterally, regular rate and rhythm. Plan: Labs, EKG, chest x-ray, urine drug screen, care team Differential Diagnosis Differential Diagnoses: The differential diagnosis associated with the presentation includes Anxiety, depression, SI, adjustment disorder Lab Data [facility] Lab Attestation statement: I reviewed the patient's lab results. No leukocytosis, stable H&H, chemistry with slight hyperglycemia at 2:10 a.m., TSH within normal limits. Urine with trace protein, glucosuria, appears to be not a clean-catch urine sample. Urine drug screen negative. Ethyl alcohol less than 10. 12/30/24 10:23 12/30/24 10:23 Labs: Lab Results 12/30/24 12/30/24 12/30/24 Range/Units 10:23 10:29 13:06 WBC 8.8 (4.8-10.8) X10*3/uL RBC 4.91 D (4.20-5.50) X10*6/uL Hgb 14.2 D (12.0-16.0) g/dl Hct 42.5 D (37.0-47.0) % MCV 86.6 (80.0-98.0) fL MCH 28.9 (27.0-33.0) pg MCHC 33.4 (31.0-35.0) g/dl RDW 12.7 (11.0-16.0) % Plt Count 321 D (160-400) X10*3/uL MPV 8.7 L (9.4-12.3) fL Immature Gran % (Auto) 0.5 H (0.0-0.4) % Neut % (Auto) 62.9 (45-73) % Lymph % (Auto) 24.9 (20-40) % [place] % (Auto) 8.9 (2-11) % Eos % (Auto) 2.5 (0-4) % Baso % (Auto) 0.3 (0-2) % Lymph # (Auto) 2.2 (1.2-4.9) X10*3/uL [place] # (Auto) 0.8 (0.1-1.2) X10*3/uL Eos # (Auto) 0.2 (0.0-0.4) X10*3/uL Baso # (Auto) 0.0 (0.0-0.2) X10*3/uL Abs Immat Gran (auto) 0.04 H (0.00-0.03) X10*3/uL Absolute Neuts (auto) 5.5 (2.0-8.3) x10*3/uL Absolute Nucleated RBC 0.000 (0.0-0.012) X10*3/uL Nucleated RBC % (auto) 0.0 (0.0-0.2) /100WBC Sodium 141 (135-145) mmol/L Potassium 4.6 (3.3-5.1) mmol/L Chloride 106 (96-108) mmol/L Carbon Dioxide 28 (22-29) mmol/L Anion Gap 12 (12-20) BUN 14 (9-16) mg/dL Creatinine 0.71 (0.5-1.4) mg/dL Estim Creat Clear Calc 67.2 Estimated GFR > 60 POC Glucose 134 H (60-115) mg/dL Random Glucose 210 H (60-115) mg/dL Calcium 9.4 D (8.4-10.2) mg/dL Magnesium 1.8 (1.6-2.6) mg/dL Total Bilirubin 0.4 (0.0-1.0) mg/dL Direct Bilirubin 0.2 (0.0-0.5) mg/dL AST 19 (5-31) U/L ALT 24 (0-31) U/L Alkaline Phosphatase 80 (39-117) U/L Troponin I High Sens < 2.7 (<3.5-17.0) ng/L Total Protein 7.1 (6.5-8.0) g/dL Albumin 3.9 (3.5-5.0) g/dL TSH 0.71 (0.32-4.0) uIU/mL Urine Color Yellow Urine Appearance Cloudy Urine pH 5.5 (5.0-9.0) Ur Specific [place] >= 1.030 H (1.005-1.025) Urine Protein 30 (1+) H (Neg-Trace) mg/dL Urine Glucose (UA) 100 H (Negative) mg/dL Urine Ketones Trace (Negative) mg/dL Urine Blood Negative (Negative) Urine Nitrite Negative (Negative) Ur Leukocyte Esterase Negative (Negative) Urine RBC 0-2 (0-2) /HPF Urine WBC 0-5 (0-5) /HPF Ur Squamous Epith Cells >20 (0-2) /HPF Urine Bacteria 2+ (None Seen) Hyaline Casts 0-2 (0-2) /LPF Urine Opiates Screen Not Detected (Not Detect) Ur Buprenorphine Scrn Not Detected (Not Detect) ng/mL Ur Oxycodone Screen Not Detected (Not Detect) ng/mL Urine Methadone Screen Not Detected (Not Detect) ng/mL Urine Fentanyl Screen Not Detected (Not Detect) Ur Barbiturates Screen Not Detected (Not Detect) Ur Phencyclidine Scrn Not Detected (Not Detect) Ur Amphetamines Screen Not Detected (Not Detect) U Benzodiazepines Scrn Not Detected (Not Detect) Urine Cocaine Screen Not Detected (Not Detect) U Marijuana (THC) Screen Not Detected (Not Detect) Ethyl Alcohol < 10 mg/dL Independent Interpretation I performed an independent interpretation of an: EKG Interpretation: EKG revealing sinus bradycardia, at a ventricular rate of 58 beats per minute, no ST elevation or depression. Radiology Impression Discussion of test interpretation with radiology: I have reviewed the radiologist's reading. Radiologist Impression: COMPARISON: None available. TECHNIQUE: PA and lateral views of the chest. FINDINGS: Mild cardiac enlargement. Mediastinal and hilar contours are normal. The lungs are clear bilaterally. There is no pneumothorax or pleural effusion. There is no focal osseous or soft tissue abnormality. There are degenerative spinal changes. XR/XR chest 2V IMPRESSION: 1. Mild cardiac enlargement. 2. No active pulmonary disease. Electronically signed by: Navneet Oviedo MD 12/30/2024 01:47 PM [facility] Dictated By: Navneet Oviedo MD Discharge Plan Discharge Clinical Impression: Anxiety Patient Disposition: Home, Self-Care Instructions: Anxiety (ED) Additional Instructions: You were seen in the emergency department due to increased anxiety and depression. Your workup today was reassuring. Your chest x-ray does show evidence of cardiomegaly, this is mild, you can follow-up with your primary care physician regarding this. Please utilize all resources given to you by the care team. Please follow-up with your primary care regarding this visit. If any new or worsening symptoms occur including but not limited to severe chest pain, shortness of breath, worsening anxiety and depression, thoughts of harming herself or someone else, auditory or visual hallucinations, please seek emergent care. Prescriptions: No Action metoprolol succinate 200 mg tablet extended release 24 hr 200 mg PO BEDTIME Qty: 90 3RF magnesium oxide 200 mg magnesium Tablet 200 mg PO DAILY cyanocobalamin (vitamin B-12) 1,000 mcg Tablet 1,000 mcg PO DAILY gabapentin 100 mg capsule 1 - 3 cap PO BEDTIME PRN (Reason: insomnia) glipizide 5 mg tablet 2 tab PO BIDAC Eliquis 5 mg Tablet 5 mg PO BID Qty: 60 0RF Januvia 100 mg tablet 100 mg PO BEDTIME coenzyme Q10 10 mg capsule 10 mg PO BEDTIME pyridoxine (vitamin B6) 50 mg tablet 50 mg PO DAILY Stand Alone Forms: Work/School Release Print Language: Ugandan
--- NOTE | 2024-12-30 12:30 | ECG_ITS ---
Test Reason : anxiety Blood Pressure : */* mmHG Vent. Rate : 58 BPM Atrial Rate : 58 BPM P-R Int : 178 ms QRS Dur : 74 ms QT Int : 414 ms P-R-T Axes : 48 45 34 degrees QTcB Int : 406 ms Sinus bradycardia Otherwise normal ECG When compared with ECG of 15-Dec-2022 09:37, No significant change was found Referred By: Nina Zafar Electronically Signed By: HETAL CALLE
[2024-12-30 12:52] LABS: Troponin-I High Sensitivity < 2.7 ng/L (<3.5-17.0)
[2024-12-30 13:12] LABS: Glucose, Whole Blood 134 mg/dL (60-115)
[2024-12-30 16:31] VITALS: BP 120/64; PULSE 69; RESP 16; TEMP 36.9; O2SAT 97
[2024-12-30 16:40] VITALS: BP 120/64; PULSE 69; RESP 16; TEMP 36.9; O2SAT 97
--- NOTE | 2024-12-30 16:50 | MHC.CARE ---
Patient evaluated by the CARE Team for depression and anxiety without suicidal ideation. She does not require a psychiatric admission. Provider, MIRIAM Barnett updated.
--- NOTE | 2024-12-30 19:29 | MHC.CARE ---
Pt referred to [facility] PHP, RAD Team will follow up tomorrow
== END 2024-12-30 16:41 | disposition home or self-care (01) ==
PROVIDERS: Emergency Medicine; Physician Assistant Medical; Emergency Provider Emergency Medicine; PCP Family Medicine
DX: F41.9 Anxiety disorder, unspecified (principal); F32.A Depression, unspecified; E11.22 Type 2 diabetes mellitus with diabetic chronic kidney disease; I12.9 Hypertensive chronic kidney disease with stage 1 through stage 4 chronic kidney disease, or unspecified chronic kidney disease; N18.9 Chronic kidney disease, unspecified; E78.5 Hyperlipidemia, unspecified; I48.0 Paroxysmal atrial fibrillation; Z87.891 Personal history of nicotine dependence; Z79.01 Long term (current) use of anticoagulants; Z79.899 Other long term (current) drug therapy
CPT/HCPCS: 36415; 71046; 80048; 80076; 80307; 81001; 82947; 83735; 84443; 84484; 85025; 93005; 99283; 99284; S9485

== ENCOUNTER → 2024-12-30 12:30 | Outpatient (BNV) | payer BC, SELFPAY | PROVIDERS: Emergency Provider Emergency Medicine; PCP Family Medicine; Visit Provider Internal Medicine | DX: R00.1 Bradycardia, unspecified (principal); F41.9 Anxiety disorder, unspecified | CPT/HCPCS: 93010 ==

== ENCOUNTER → 2024-12-30 12:30 | Outpatient (BNV) | payer BC, SELFPAY | PROVIDERS: Emergency Provider Emergency Medicine; PCP Family Medicine; Visit Provider Radiology Diagnostic Radiology | DX: R07.9 Chest pain, unspecified (principal) | CPT/HCPCS: 71046 ==

== ENCOUNTER → 2025-01-15 08:15 | Outpatient (BNV) | payer BC, SELFPAY | PROVIDERS: Visit Provider Psychiatry & Neurology Psychiatry | DX: F33.2 Major depressive disorder, recurrent severe without psychotic features (principal); F41.1 Generalized anxiety disorder; F43.9 Reaction to severe stress, unspecified | CPT/HCPCS: 99213 ==

== ENCOUNTER 2025-02-07 08:45 | Outpatient (RCR) | payer BC, SELFPAY ==
[2025-01-08 13:02] VITALS: BMI 42.1
[2025-01-08 13:03] VITALS: BP 126/50; PULSE 80; TEMP 37.4
--- NOTE | 2025-01-08 14:23 | PC.ADMIT ---
Patient is a 64 year old female who was referred to PHP by [facility] Care Team d/t increased depression and anxiety sxs. Patient reports many losses in her life and experiencing grief as a result. 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 Patient reports she is struggling with anxiety, panic attacks, and depression. Patient reports she has Type II diabetes. She uses a Dexcom implant. Reports her Blood sugars are running at 246 average with 9.2 A1C. Reports she is on a low sugar, low carbohydrate diet. She currently is on a tapering up of Lantus to improve her Blood glucose levels. Patient is alert and oriented x4. She is calm and cooperative. Her thoughts are clear and logical. She presented with depressed mood and anxious affect. She denied SI, no HI. She was given a copy of her safety plan if needed. Medications reconciled with patient and patient's pharmacy. She reports she is taking medications as prescribed. Reports she was put on Citalopram by her prescriber for a week and could not tolerate the medication d/t complaints of vomiting, tremulousness, and increased anxiety.
--- NOTE | 2025-01-09 17:02 | HO.PHP ---
Client's case has been opened and reviewed in team.
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
--- NOTE | 2025-01-13 09:18 | HO.PHP ---
Client got a referral for [facility] for Outpatient Therapy and Medication Management @ the [facility] [place] on 01/10/25
--- NOTE | 2025-01-15 12:11 | HO.PHPPROGNO ---
Subjective Subjective Date of Service: 01/14/25 Reason For Visit: anxiety,depression Interim History: Patient tried 2 days of lorazepam last time Monday afternoon. Thus far seems it may be helpful for anxiety but has not taken it since. She continues to have high level of persistent anxiety. My mind gets really overwhelmed. I get stuck experiences muscle tension nervousness. 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 She was not sure if she could continue taking lorazepam as was concerned regarding our discussion about tolerance. Our long-term plan is not to remain on the medication but to bridge at least some of her anxiety until the antidepressant is more therapeutic. She has started on duloxetine 20 mg which she has been taking in the evening. She denies experiencing any side effects which is relieving as she has had poor tolerance to other antidepressants. Her daughters also take duloxetine which she also finds reassuring. Mood is still depressed denies any hopelessness or SI. Namely low energy anhedonia and presents as blunted. Hypersomnia appetite stable. Medication Compliance: Yes Side effects from medications: No Attending Groups: Yes Review of Systems Acute medical concerns: No Mental Status Exam Mental Status Exam Narrative: Alert, oriented, in no acute distress. Calm, cooperative, engaged. No psychomotor agitation or neurovegetative retardation. Eye contact maintained. Mood depressed, affect constricted. Speech normal. Thought process linear, coherent. Thought content related to stressors, transient helplessness, denies hopelessness or SI. No issues with anger, irritability or HI. No paranoia or delusional content elicited. No evidence of psychosis. Insight and judgment - fair but adequate. Diagnostics Vital Signs (24Hr): BMI result Body Mass Index 42.1 Assessment & Plan Assessment & Plan (1) MDD (major depressive disorder), recurrent severe, without psychosis: Status: Acute Code(s): F33.2 - Major depressive disorder, recurrent severe without psychotic features (2) KINSEY (generalized anxiety disorder): Status: Acute Code(s): F41.1 - Generalized anxiety disorder (3) Trauma and stressor-related disorder: Status: Acute Code(s): F43.9 - Reaction to severe stress, unspecified Plan Continue PHP increase duloxetine to 20 mg BID (then TID later, and transition onto 30 mg) continue gabapentin continue lorazepam 0.5 mg qd PRN continue other regular medications: Eliquis 5 mg BID, glipizide, Lantus, sitagliptin 100 mg qhs, metoprolol ER 200 mg qhs Routine lab work ordered as indicated EKG, routine for baseline QTc for medication considerations as indicated UDS as indicated VS (01/08/25) BP 126/50;?80 bpm Continue to monitor Patient educated on: diagnosis and medication risk/benefits Informed Consent: understands Reason for contiued partial hosp. stay Substantial Risk for: inability to function and med/psych decompensation Certification I certify that partial hospital treatment is medically necessary due to the symptoms and problems resulting from the patient's mental illness and the failure to treat the patient at the partial hospital level of care would likely result in the patient requiring inpatient psychiatric care which could not be prevented at a less intensive level of care. Total time managing care of this patient today _30___ minutes. Discharge Plan Discharge Attending provider: Myrna Lawson Medications: New duloxetine 20 mg capsule,delayed release(DR/EC) See Rx Instructions .ROUTE .COMPLEX Qty: 30 0RF Rx Instructions: take 1 capsule po daily for 4 days, then increase to 1 capsule po BID lorazepam 0.5 mg tablet 0.5 mg PO DAILY PRN (Reason: anxiety) Qty: 14 0RF Continued metoprolol succinate 200 mg tablet extended release 24 hr 200 mg PO BEDTIME Qty: 90 3RF gabapentin 100 mg capsule 1 - 3 cap PO BEDTIME PRN (Reason: insomnia) glipizide 5 mg tablet 1 - 2 tab PO BIDAC Rx Instructions: 1-2 tabs before breakfast 1-2 tabs before dinner. Eliquis 5 mg Tablet 5 mg PO BID Qty: 60 0RF Januvia 100 mg tablet 100 mg PO BEDTIME insulin glargine [Lantus Solostar U-100 Insulin] 100 unit/mL (3 mL) insulin pen See Rx Instructions .ROUTE .COMPLEX Rx Instructions: INJECT 23 UNITS SUBCUTANEOUSLY ONCE DAILY INCREASE BY 3 UNITS EVERY 2 DAYS UNTIL MORNING SUGARS ARE LESS THAN 120 AND ABOVE 90 , MAX DAILY DOSE 80 UNITS Stand Alone Forms: Patient Portal Discharge page Print Language: Spanish
--- NOTE | 2025-01-28 14:57 | HO.PHPPROGNO ---
Subjective Subjective Date of Service: 01/27/25 Reason For Visit: anxiety,depression Interim History: Patient seen for follow up. Patient was has not received notification from pharmacy so has yet to increase dose of duloxetine to 30 mg twice a day but plans to miner pick the medication after program. In the meantime she is continued on duloxetine 20 mg twice a day as directed. She denies any adverse effects, medication has been well tolerated. She ran out of the medication 2 days ago and has not taken any since she denies withdrawal side effects thus far. She is instructed to start back on the medication this afternoon as soon as it is picked up and should hold off evening dose and start tomorrow at 30 twice a day. She had tried lorazepam over the weekend on only 1 occasion did find it somewhat helpful has not been taking it since. She was not aware if that would be problematic. I have encouraged her to try taking 1-2 tablets daily up to Mental Status Exam Mental Status Exam Narrative: Alert, oriented, in no acute distress. Calm, cooperative, engaged. No psychomotor agitation or neurovegetative retardation. Eye contact maintained. Mood depressed, affect constricted. Speech normal. Thought process linear, coherent. Thought content related to stressors, transient helplessness, denies hopelessness or SI. No issues with anger, irritability or HI. No paranoia or delusional content elicited. No evidence of psychosis. Insight and judgment - fair but adequate. Diagnostics Vital Signs (24Hr): BMI result Body Mass Index 42.1 Assessment & Plan Assessment & Plan (1) MDD (major depressive disorder), recurrent severe, without psychosis: Status: Acute Code(s): F33.2 - Major depressive disorder, recurrent severe without psychotic features (2) KINSEY (generalized anxiety disorder): Status: Acute Code(s): F41.1 - Generalized anxiety disorder (3) Trauma and stressor-related disorder: Status: Acute Code(s): F43.9 - Reaction to severe stress, unspecified Plan Admit to [facility] VS reviewed: afebrile, BP 126/50;?80 bpm start duloxetine 20 mg qd continue gabapentin 100-300 mg qhs prn sleep start lorazepam 0.5 mg qd as PRN anxiety to bridge until duloxetine therapeutic continue other regular medications: Eliquis 5 mg BID, glipizide, Lantus, sitagliptin 100 mg qhs, metoprolol ER 200 mg qhs Routine lab work ordered as indicated EKG, routine for baseline QTc for medication considerations as indicated UDS as indicated MassPat reviewed Continue to monitor as per protocol Certification I certify that partial hospital treatment is medically necessary due to the symptoms and problems resulting from the patient's mental illness and the failure to treat the patient at the partial hospital level of care would likely result in the patient requiring inpatient psychiatric care which could not be prevented at a less intensive level of care. Total time managing care of this patient today ____ minutes. Discharge Plan Discharge Attending provider: Myrna Lawson Medications: New duloxetine 20 mg capsule,delayed release(DR/EC) See Rx Instructions .ROUTE .COMPLEX Qty: 30 0RF Rx Instructions: take 1 capsule po daily for 4 days, then increase to 1 capsule po BID lorazepam 0.5 mg tablet 0.5 mg PO DAILY PRN (Reason: anxiety) Qty: 14 0RF duloxetine 30 mg capsule,delayed release(DR/EC) 30 mg PO BID 30 Days Qty: 60 0RF Continued metoprolol succinate 200 mg tablet extended release 24 hr 200 mg PO BEDTIME Qty: 90 3RF gabapentin 100 mg capsule 1 - 3 cap PO BEDTIME PRN (Reason: insomnia) glipizide 5 mg tablet 1 - 2 tab PO BIDAC Rx Instructions: 1-2 tabs before breakfast 1-2 tabs before dinner. Eliquis 5 mg Tablet 5 mg PO BID Qty: 60 0RF Januvia 100 mg tablet 100 mg PO BEDTIME insulin glargine [Lantus Solostar U-100 Insulin] 100 unit/mL (3 mL) insulin pen See Rx Instructions .ROUTE .COMPLEX Rx Instructions: INJECT 23 UNITS SUBCUTANEOUSLY ONCE DAILY INCREASE BY 3 UNITS EVERY 2 DAYS UNTIL MORNING SUGARS ARE LESS THAN 120 AND ABOVE 90 , MAX DAILY DOSE 80 UNITS Stand Alone Forms: Patient Portal Discharge page Print Language: Vietnamese
--- NOTE | 2025-01-29 08:54 | HO.PHP ---
The client has an appointment with a therapist at [address] on 02/01/25 @ 12 pm and a psych appointment on 02/26/25 @9:00 am at the same location.
--- NOTE | 2025-02-02 00:47 | P.PNPSP_ITS ---
Subjective Subjective Date of Service: 01/31/25 Reason For Visit: anxiety,depression Interim History: Patient seen for follow-up. She reports that she has now been off of duloxetine for past 2 days. The pharmacy is reporting that a PA is required in order to fill duloxetine 30 mg b.i.d. dosing and says that the insurance is requesting patient to fill duloxetine 60 mg q.d. especially since patient has been off the medication would not be comfortable with her starting back at 60 mg at a time. We will plan to fill script for 30 mg once daily #30. And will still resume duloxetine with b.i.d. dosing for the next week to ease patient on some medication will plan to consolidate to q.d. dosing 60 mg. She denies any other issues at this time. She denies any SI, HI, AH, VH. Sleep, appetite and energy are stable. Medication Compliance: No (As noted above) Side effects from medications: No Attending Groups: Yes Review of Systems Acute medical concerns: No Mental Status Exam Mental Status Exam Narrative: Alert, oriented, in no acute distress. Calm, cooperative, engaged. No psychomotor agitation or neurovegetative retardation. Eye contact maintained. Mood depressed, affect less constricted. Speech normal. Thought process linear, coherent. Thought content related to stressors, transient helplessness, denies hopelessness or SI. No issues with anger, irritability or HI. No paranoia or delusional content elicited. No evidence of psychosis. Insight and judgment - fair-good. Diagnostics Vital Signs (24Hr): BMI result Body Mass Index 42.1 Assessment & Plan Assessment & Plan (1) MDD (major depressive disorder), recurrent severe, without psychosis: Status: Acute Code(s): F33.2 - Major depressive disorder, recurrent severe without psychotic features (2) KINSEY (generalized anxiety disorder): Status: Acute Code(s): F41.1 - Generalized anxiety disorder (3) Trauma and stressor-related disorder: Status: Acute Code(s): F43.9 - Reaction to severe stress, unspecified Plan Continue PHP restart duloxetine 30 mg tonight and continue at 30 mg BID starting tomorrow continue gabapentin 100-300 mg qhs prn insomnia continue lorazepam 0.5 mg qd PRN takes metoprolol ER 200 mg qhs continue other regular medications: Eliquis 5 mg BID, glipizide, Lantus, sitagliptin 100 mg qhs Routine lab work reviewed from 12/30/24 VS (01/08/25) BP 126/50;?80 bpm Continue to monitor Patient educated on: diagnosis and medication risk/benefits Informed Consent: understands Reason for contiued partial hosp. stay Substantial Risk for: med/psych decompensation Certification I certify that partial hospital treatment is medically necessary due to the symptoms and problems resulting from the patient's mental illness and the failure to treat the patient at the partial hospital level of care would likely result in the patient requiring inpatient psychiatric care which could not be prevented at a less intensive level of care. Total time managing care of this patient today __30__ minutes. Discharge Plan Discharge Attending provider: Myrna Lawson Medications: New duloxetine 20 mg capsule,delayed release(DR/EC) See Rx Instructions .ROUTE .COMPLEX Qty: 30 0RF Rx Instructions: take 1 capsule po daily for 4 days, then increase to 1 capsule po BID lorazepam 0.5 mg tablet 0.5 mg PO DAILY PRN (Reason: anxiety) Qty: 14 0RF Continued metoprolol succinate 200 mg tablet extended release 24 hr 200 mg PO BEDTIME Qty: 90 3RF gabapentin 100 mg capsule 1 - 3 cap PO BEDTIME PRN (Reason: insomnia) glipizide 5 mg tablet 1 - 2 tab PO BIDAC Rx Instructions: 1-2 tabs before breakfast 1-2 tabs before dinner. Eliquis 5 mg Tablet 5 mg PO BID Qty: 60 0RF Januvia 100 mg tablet 100 mg PO BEDTIME insulin glargine [Lantus Solostar U-100 Insulin] 100 unit/mL (3 mL) insulin pen See Rx Instructions .ROUTE .COMPLEX Rx Instructions: INJECT 23 UNITS SUBCUTANEOUSLY ONCE DAILY INCREASE BY 3 UNITS EVERY 2 DAYS UNTIL MORNING SUGARS ARE LESS THAN 120 AND ABOVE 90 , MAX DAILY DOSE 80 UNITS Changed duloxetine 30 mg capsule,delayed release(DR/EC) 30 mg PO DAILY 30 Days Qty: 30 0RF Stand Alone Forms: Patient Portal Discharge page Print Language: Vietnamese
--- NOTE | 2025-02-06 09:43 | HO.PHP ---
PHP admin, Steph informed the team that Antoinette will not be in attendance to program today due to her daughter being in labor. Antoinette will be in attendance to program tomorrow.
--- NOTE | 2025-02-07 13:46 | HO.PHPPROGNO ---
Subjective Subjective Date of Service: 02/07/25 Reason For Visit: anxiety,depression Diagnostics Vital Signs (24Hr): BMI result Body Mass Index 42.1 Assessment & Plan Certification I certify that partial hospital treatment is medically necessary due to the symptoms and problems resulting from the patient's mental illness and the failure to treat the patient at the partial hospital level of care would likely result in the patient requiring inpatient psychiatric care which could not be prevented at a less intensive level of care. Total time managing care of this patient today ____ minutes. Discharge Plan Discharge Attending provider: Myrna Lawson Medications: New duloxetine 60 mg capsule,delayed release(DR/EC) 60 mg PO DAILY Qty: 30 0RF Continued metoprolol succinate 200 mg tablet extended release 24 hr 200 mg PO BEDTIME Qty: 90 3RF gabapentin 100 mg capsule 1 - 3 cap PO BEDTIME PRN (Reason: insomnia) glipizide 5 mg tablet 1 - 2 tab PO BIDAC Rx Instructions: 1-2 tabs before breakfast 1-2 tabs before dinner. Eliquis 5 mg Tablet 5 mg PO BID Qty: 60 0RF Januvia 100 mg tablet 100 mg PO BEDTIME insulin glargine [Lantus Solostar U-100 Insulin] 100 unit/mL (3 mL) insulin pen See Rx Instructions .ROUTE .COMPLEX Rx Instructions: INJECT 23 UNITS SUBCUTANEOUSLY ONCE DAILY INCREASE BY 3 UNITS EVERY 2 DAYS UNTIL MORNING SUGARS ARE LESS THAN 120 AND ABOVE 90 , MAX DAILY DOSE 80 UNITS lorazepam 0.5 mg tablet 0.5 mg PO DAILY PRN (Reason: anxiety) Qty: 14 0RF Stand Alone Forms: Patient Portal Discharge page Patient Education: Depression (DC), Anxiety (ED) Print Language: Ethiopian
== END 2025-02-07 23:59 | disposition home or self-care (01) ==
LOC: HO.PHPA 08:45
PROVIDERS: Visit Provider Psychiatry & Neurology Psychiatry
DX: F33.2 Major depressive disorder, recurrent severe without psychotic features (principal); F41.1 Generalized anxiety disorder; F43.9 Reaction to severe stress, unspecified; Z79.899 Other long term (current) drug therapy
CPT/HCPCS: 90791; 90853

== ENCOUNTER → 2025-02-17 08:43 | Outpatient (REF) | payer BC, SELFPAY ==
--- OUTSIDE RECORDS SUMMARY | 2025-02-17 09:22 | XMS_ITS | Clinical Summary ---
Author Organization [facility] Address [address] [place] [id number] Care Team Providers Care Egg Trayer Name Role Phone Pcp, No Primary Care [...] age to complete this topic Care Teams Egg Trayer Relationship Specialty Start Date End Date Pcp, No PCP - General General Medicine 10/19/19
== END ==
LOC: HO.SL 08:43
PROVIDERS: Visit Provider Internal Medicine Cardiovascular Disease
DX: G47.30 Sleep apnea, unspecified (principal)
CPT/HCPCS: 95806

== ENCOUNTER → 2025-02-18 09:03 | Outpatient (BNV) | payer BC, SELFPAY | PROVIDERS: Visit Provider Internal Medicine | DX: G47.33 Obstructive sleep apnea (adult) (pediatric) (principal) | CPT/HCPCS: 95806 ==

== ENCOUNTER 2025-03-10 14:44 | Outpatient (AMB) | payer BC, SELFPAY ==
--- NOTE | 2025-03-10 15:38 | A.OFFVIS_ITS ---
Vital Signs 03/10/25 15:40 Height 5 ft 4 in Weight 248 lb 10.903 oz BMI 42.7 BP 124/62 Blood Pressure Location Lt brachial Position Sitting Pulse 76 Pulse Source Pulse Oximeter Intake Visit Reasons: 4 mth f/up-home sleep study Intake Note: 4 mth f/up-home sleep study Fruit And Vegetable Inspector Required: No Accompanied by: Self / Same As Patient Allergies Penicillins [PCN] Allergy (Intermediate, Verified 12/30/24 09:28) Hives citalopram Allergy (Verified 01/08/25 14:24) Vomiting, Tremors, increased anxiety. dulaglutide [From Trulicity] Allergy (Verified 01/14/25 13:15) Itching. lisinopril Allergy (Verified 01/14/25 13:15) Diarrhea semaglutide [From Rybelsus] Allergy (Verified 01/14/25 13:15) Low criticality: itching. codeine Adverse Reaction (Intermediate, Verified 12/30/24 09:28) Nausea metformin Adverse Reaction (Intermediate, Verified 12/30/24 09:28) caused UTI's Medication List - Last Reconciled 03/10/25 by Andi Duncan MD apixaban (Eliquis) 5 mg PO BID duloxetine 60 mg PO DAILY gabapentin 1 - 3 caps PO BEDTIME PRN glipizide 1 - 2 tabs PO BIDAC insulin glargine (Lantus Solostar U-100 Insulin) INJECT 23 UNITS SUBCUTANEOUSLY ONCE DAILY INCREASE BY 3 UNITS EVERY 2 DAYS UNTIL MORNING SUGARS ARE LESS THAN 120 AND ABOVE 90 , MAX DAILY DOSE 80 UNITS lorazepam 0.5 mg PO DAILY PRN metoprolol succinate ER 200 mg PO BEDTIME tirzepatide (Mounjaro) mg subcut HPI Comments Details: Pleasant 64-year-old female who was seen in the hospital when she presented with sepsis due to urinary tract infection and obstructive uropathy. She developed atrial fibrillation with rapid ventricular response. She underwent cardioversion and was discharged home on Toprol XL and apixaban. She is going for repeat urological procedure for kidney stones. The patient is unclear about the surgery that what exactly is going to be done. She has been taking Eliquis regularly. No concerns on her part and she has no palpitations, shortness of breath or chest discomfort. 05/17/23: She is here for follow-up. She is doing well. No palpitations. No chest discomfort shortness of breath. Taking medications regularly. Stable from the obstructive uropathy point of view. 10/23/2023: She returns for follow-up. She has been doing well. Tolerating Eliquis without any GI or bleed. Blood pressure control is good. She is asking whether she should consider Watchman device. I explained the rationale for the procedure and advised her that she should continue apixaban for now. 04/17/24: Here for f/u. No palpitations. Taking meds regularly. 10/16/2024: She is here for follow-up. Denying any palpitations. Continues to be in sinus rhythm. Taking Eliquis without any problems. 03/10/2025: Here for follow-up. She had home sleep study which was abnormal. She has due to get an in hospital sleep study and will be seeing pulmonology. Denying any chest pain or shortness of breath. No palpitations. Taking Eliquis without any bleeding concerns. [facility] Medical History (Updated 01/16/25 @ 08:40 by Myrna Lawson MD) Hyperlipidemia Peripheral neuropathy Hypertension Restless legs syndrome (RLS) History of shingles GERD (gastroesophageal reflux disease) History of sepsis History of COVID-19 Nephrolithiasis History of cardioversion PAF (paroxysmal atrial fibrillation) Renal insufficiency Diabetes Surgical History H/O section History of cardiac cath H/O colonoscopy Hx of bilateral oophorectomy Hx of cystoscopy Family History Mother Muscular dystrophy Father Diabetes Heart disease Brother Diabetes Muscular dystrophy Paternal Aunt Afib Social History Household Members: Children Household Members Other:: Son Housing: Apartment Housing Other:: in 2 family house Are you a primary health care law specialist to a significant other at home: No Do you presently have visiting nurse or other home services: No Alcohol intake: current Alcohol intake frequency: holidays/special occasions only Patient Tobacco Use Status: Former Tobacco user Tobacco use type: Cigarette Years Smoked: 20 +/- service: No Current occupational status: employed Review of Systems Const Denies chills, Denies fatigue, Denies fever(s), Denies frequent falls, Denies weakness, Denies weight gain and Denies weight loss ENT Denies dizziness Card Denies chest pain, Denies leg edema, Denies lightheadedness, Denies palpitations, Denies dyspnea and Denies dyspnea on exertion Resp Denies cough, Denies dyspnea and Denies dyspnea on exertion GI Denies hematochezia Musc Denies abnormal gait, Denies muscle weakness, Denies numbness, Denies radiating pain into limb and Denies tingling Neuro Denies abnormal gait, Denies dizziness, Denies frequent falls, Denies numbness, Denies tingling and Denies weakness Endo Denies fatigue and Denies palpitations Physical Exam Vital Signs: Last Vital Signs Pulse 76 03/10/25 15:40 BP 124/62 03/10/25 15:40 BMI result Body Mass Index 42.7 GENERAL APPEARANCE: in no acute distress, pleasant. NECK: no carotid bruit, no jugular venous distention. SKIN: no suspicious lesions, warm and dry. HEART: no murmurs, regular rate and rhythm. LUNGS: clear to auscultation bilaterally. ABDOMEN: soft, nontender. EXTREMITIES: no edema. PERIPHERAL PULSES: equal. NEUROLOGIC: No gross deficits, AAO X 3 Assessment & Plan Assessment & Plan (1) PAF (paroxysmal atrial fibrillation): Comment: w/cardioversion 12/14/22 (in patient w/nephrolithiasis)(taking eliquis & metoprolol) Code(s): I48.0 - Paroxysmal atrial fibrillation Category: Medical Plan Pleasant 64 year female who is here for follow-up. She has background history of paroxysmal atrial fibrillation setting of py elonephritis. She is been in sinus rhythm since then and has been doing well. She is on 200 mg of Toprol XL and Eliquis 5 mg twice a day. Her home sleep study is abnormal. She has been referred to pulmonology for further workup and potential in hospital sleep study. I have explained to her that sleep apnea is a trigger for atrial fibrillation and must be treated. Thank you for allowing me to participate in the care of your patient. Please feel free to contact me if you have any questions. Coding Level of Care Code Est Pt Level 4 (34110) Diagnoses PAF (paroxysmal atrial fibrillation) I48.0
[2025-03-10 15:40] VITALS: BP 124/62; PULSE 76; BMI 42.7
== END 2025-03-10 15:57 | disposition home or self-care (01) ==
PROVIDERS: PCP Family Medicine; Visit Provider Internal Medicine Cardiovascular Disease
DX: I48.0 Paroxysmal atrial fibrillation (principal)
CPT/HCPCS: 99214

== ENCOUNTER → 2025-04-03 20:30 | Outpatient (REF) | payer BC, SELFPAY ==
--- OUTSIDE RECORDS SUMMARY | 2025-04-03 21:39 | XMS_ITS | Clinical Summary ---
Author Organization [facility] Address [address] [place] [id number] Care Team Providers Care Tongue Stitcher Name Role Phone Pcp, No Primary Care Provider Unavailabl e Allergies Active Allergy Reactions Criticality Noted Date Comments Codeine Rash/Dermatitis Low 10/19/2019 Metformin Unknown/Patient and Family Unable to Define Medium 10/19/2019 uti's Penicillins Hives Medium 10/19/2019 Medications losartan (COZAAR) 25 MG tablet Take 25 mg by mouth daily. Active glipiZIDE (GLUCOTROL) 5 MG tablet Take 5 mg by mouth every morning before breakfast. Active aspirin enteric coated (ECOTRIN LOW STRENGTH) 81 MG EC tablet Take 81 mg by mouth daily. Active mupirocin (BACTROBAN) 2 % ointmentIndicat ions:Folliculit is Apply topically 3 (three) times a day. 22 g 9 Active Immunizations Immunization Administration Dates Next Due Influenza (AFLURIA/FLUZONE) Inactivated/Split Quadrivalent with Preservative IM 10/19/2019(Deferred: Patient Refused) Social History Tobacco Use Types Packs/Day Years Used Date Smoking Tobacco: Former Smokeless Tobacco: Never Alcohol Use Standard Drinks/Week Comments Yes 0 (1 standard drink = 0.6 oz pur e alcohol) Comments Unknown Sex and Gender Information Value Date Recorded Sex Assigned at Not on file Legal Sex Female 9:27 AM EST Gender Identity Not on file Sexual Orientation [...] Density (Females,Ag es 65 and older) 2023 COVID-19 Vaccine ( - 2023-2 5 season) 2024 Influenza Vaccine 06/06/2025 RSV Vaccine 60 years and old er and Patients (1 - 1-dose 75+ series) 2033 Hepatitis B Vaccines Aged Out No long er eligible based on patient's age to complete this topic Insurance [facility] Care Teams Tongue Stitcher Relationship Specialty Start Date End Date Pcp, No PCP - General General Medicine 10/19/19
== END ==
LOC: HO.SL 20:30
PROVIDERS: PCP Family Medicine; Visit Provider Internal Medicine Cardiovascular Disease
DX: G47.33 Obstructive sleep apnea (adult) (pediatric) (principal); R06.83 Snoring
CPT/HCPCS: 95810

== ENCOUNTER → 2025-04-03 21:33 | Outpatient (BNV) | payer BC, SELFPAY | PROVIDERS: PCP Family Medicine; Visit Provider Internal Medicine | DX: G47.33 Obstructive sleep apnea (adult) (pediatric) (principal); R06.83 Snoring | CPT/HCPCS: 95810 ==

== ENCOUNTER 2025-05-13 09:21 | Outpatient (AMB) | payer BC, SELFPAY ==
[2025-05-13 09:25] VITALS: BP 98/60; PULSE 84; O2SAT 95; BMI 42.0
--- NOTE | 2025-05-13 09:25 | A.OFFVIS_ITS ---
Vital Signs 05/13/25 09:25 Height 5 ft 4 in Weight 244 lb 8 oz BMI 42.0 BP 98/60 Blood Pressure Location Rt brachial Position Sitting Pulse 84 Pulse Source Pulse Oximeter Pulse Oximetry (%) 95 Oxygen Delivery Method Room Air Intake Visit Reasons: Obstructive sleep apnea Allergies Penicillins (PCN) Allergy (Intermediate, Verified 05/13/25 09:28) Hives citalopram Allergy (Verified 05/13/25 09:) Vomiting, Tremors, increased anxiety. dulaglutide (From Trulicity) Allergy (Verified 05/13/25 09:28) Itching. lisinopril Allergy (Verified 05/13/25 09:28) Diarrhea semaglutide (From Rybelsus) Allergy (Verified 05/13/25 09:28) Low criticality: itching. codeine Adverse Reaction (Intermediate, Verified 05/13/25 09:28) Nausea metformin Adverse Reaction (Intermediate, Verified 05/13/25 09:28) caused UTI's HPI HPI Obstructive sleep apnea: Details: Antoinette is a pleasant 65 year old female, former 15 pack year smoker, quit 30 years ago with underlying DMII and atrial fibrillation s/p cardioversion 2022 maintained on Eliquis and metoprolol. She was referred by cardiology for management of SUMI after recent in lab study revealed severe SUMI, AHI 30 with moderate nocturnal hypoxemia. The patient has not previously used a CPAP machine but expressed interest in starting therapy. The patient has a history of atrial fibrillation, which was last symptomatic two years ago. She reports ongoing daytime fatigue, nonrestorative sleep and morning headaches. At this time, she reports intermittent dyspnea with physical activity otherwise denies respiratory symptoms. [facility] Medical History (Updated 05/13/25 @ 09:57 by Shira Bahena NP) Hyperlipidemia Peripheral neuropathy Hypertension Restless legs syndrome (RLS) History of shingles GERD (gastroesophageal reflux disease) History of sepsis History of COVID-19 Nephrolithiasis History of cardioversion PAF (paroxysmal atrial fibrillation) Renal insufficiency Diabetes Surgical History H/O section History of cardiac cath H/O colonoscopy Hx of bilateral oophorectomy Hx of cystoscopy Family History Mother Muscular dystrophy Father Diabetes Heart disease Brother Diabetes Muscular dystrophy Paternal Aunt Afib Social History Household Members: Children Household Members Other:: Son Housing: Apartment Housing Other:: in 2 family house Are you a primary healthcare sales representative to a significant other at home: No Do you presently have visiting nurse or other home services: No Alcohol intake: current Alcohol intake frequency: holidays/special occasions only Patient Tobacco Use Status: Former Tobacco user Tobacco use type: Cigarette Years Smoked: 20 +/- service: No Current occupational status: employed Review of Systems Const Denies chills, Denies excessive sweating, Denies fever(s), Denies headache(s) and Denies night sweats Eyes Denies dry eyes, Denies irritation and Denies itchy eyes ENT Reports Normal hearing present, Denies headache(s), Denies nasal congestion, Denies nasal discharge, Denies post nasal drip and Denies sore throat Card Denies chest pain, Denies chest pain at rest, Denies chest pain with activity, Denies claudication, Denies leg edema, Denies dyspnea, Denies dyspnea on exertion, Denies orthopnea and Denies paroxysmal nocturnal dyspnea Resp Denies chest congestion, Denies cough, Denies excessive phlegm production, Denies pain on inspiration, Denies pain with cough, Denies dyspnea, Denies dyspnea on exertion, Denies stridor and Denies wheezing Musc Denies myalgias Neuro Reports Normal hearing present and Denies headache(s) Endo Denies excessive sweating Sage/Lymph Denies lymphadenopathy Aller/Immun Denies itchy eyes, Denies seasonal rhinorrhea and Denies wheezing Physical Exam Vital Signs: Last Vital Signs Pulse 84 05/13/25 09:25 BP 98/60 05/13/25 09:25 Pulse Ox 95 05/13/25 09:25 Oxygen Delivery Method Room Air 05/13/25 09:25 BMI result Body Mass Index 42.0 Const General: cooperative, healthy appearing, comfortable, no acute distress, well developed and alert Nutritional Appearance: obese Orientation/consciousness: patient oriented x3 Limitations: no limitations HEENT Head: Yes normal to inspection, Yes normocephalic and Yes atraumatic Ears: hearing grossly normal bilaterally and external ears normal Eyes General: appearance normal, both eyes and all related structures Eyelids: Yes eyelids normal Sclerae: sclerae normal EOM: EOMs intact bilaterally Neck Neck: Yes normal visual inspection and Yes no lymphadenopathy Lymphatic: no lymphadenopathy noted Chest Chest palpation & inspection: normal inspection of the chest Resp Effort & Inspection: normal respiratory effort, able to speak in complete sentences, no audible wheezes, no cough, no stridor, not tachypneic, no tripod positioning and no use of accessory muscles Auscultation: clear to auscultation bilaterally Cardio Jugular venous distension: no JVD Rate: regular rate Rhythm: regular rhythm Skin Other: warm, dry General skin exam: no rashes or lesions noted Neuro General: patient oriented x3 Cranial nerves: Yes Normal hearing present Cognition (Neuro): normal cognition Gait exam (Neuro): Normal gait present Extrem General: Yes normal to inspection, Yes capillary refill normal, Yes no clubbing, cyanosis or edema and Yes no pedal edema Psych Appearance: grossly normal and well kempt Speech and movement: Normal speech and movement present and Clear speech present Affect: normal affect Attitude: cooperative Thought process: Normal thought process present Thought content: Normal thought content present Insight: Good insight present (Psych) Judgement: Good judgement present (Psych) Assessment & Plan Assessment & Plan (1) Severe obstructive sleep apnea: Code(s): G47.33 - Obstructive sleep apnea (adult) (pediatric) Category: Medical (2) Nocturnal hypoxemia: Code(s): G47.34 - Idiopathic sleep related nonobstructive alveolar hypoventilation Category: Medical Plan Reviewed sleep study results with patient which revealed an AHI of 30 with moder ate nocturnal hypoxemia, <88% 45 minutes. Since patient is quite symptomatic, will start CPAP therapy. Will send in prescription for CPAP mode and pressure settings of 13 cmH20 with close monitoring for compliance and benefits. Sleep hygiene education reviewed. She is aware if there are any issues with the mask or CPAP machine, she will call the [employer] company or office. Once established on CPAP therapy, will send for overnight oximetry to ensure resolution of nocturnal hypoxemia with CPAP use. All questions were answered and patient is in agreement of plan. Will follow up in 10-12 weeks or sooner if needed. Coding Level of Care Code New Pt Level 3 (98696) Diagnoses Severe obstructive sleep apnea G47.33 Nocturnal hypoxemia G47.34
--- OUTSIDE RECORDS SUMMARY | 2025-05-13 09:46 | XMS_ITS | Clinical Summary ---
Author Organization [facility] Address [address] [place] [address] Care Team Providers Care Wire Strander Name Role Phone Pcp, No Primary Care [...] 81 10/19/2019 9:40 AM EST Temperature 36.7 C (98.1 F) 10/19/2019 9:40 AM EST Respiratory Rate - - Oxygen Saturation 97% [...] patient's age to complete this topic Insurance Care Teams Wire Strander Relationship Specialty Start Date End Date Pcp, No PCP - General General Medicine 10/19/19
== END 2025-05-13 10:07 | disposition home or self-care (01) ==
LOC: HO.HPSW 09:21
PROVIDERS: PCP Family Medicine; Referring Provider Internal Medicine Cardiovascular Disease; Visit Provider Nurse Practitioner Family
DX: G47.33 Obstructive sleep apnea (adult) (pediatric) (principal); G47.34 Idiopathic sleep related nonobstructive alveolar hypoventilation
CPT/HCPCS: 99203

== ENCOUNTER 2025-06-09 10:26 | Outpatient (REF) | payer BC, SELFPAY ==
--- NOTE | ~2025-06-09 | US_ITS ---
EXAMINATION: US KIDNEY BILATERAL HISTORY: N20.0 - Calculus of kidney TECHNIQUE: Real-time grayscale ultrasound imaging of the kidneys was performed and images were reviewed. COMPARISON: Comparison is made with the prior examination dated. FINDINGS: Right kidney: The right kidney measures 12.0 x 5.0 x 5.3 cm. Renal parenchymal echotexture and thickness are normal. There are no masses. There is no hydronephrosis or renal calculi. Left Kidney: The left kidney measures 13.3 x 5.5 x 5.4 cm. Renal parenchymal echotexture and thickness are normal. There are no masses. There is no hydronephrosis or renal calculi. US/US renal BI IMPRESSION: Unremarkable renal ultrasound. Electronically signed by: Jack Trent MD 06/09/2025 11:24 AM EDT
--- OUTSIDE RECORDS SUMMARY | 2025-06-09 11:08 | XMS_ITS | Clinical Summary ---
Author Organization [facility] Address [address] [place] [address] Care Team Providers Care Deburrer Name Role Phone Pcp, No Primary Care [...] to complete this topic Insurance Care Teams Deburrer Relationship Specialty Start Date End Date Pcp, No PCP - General General Medicine 10/19/19
--- OUTSIDE RECORDS SUMMARY | 2025-06-09 11:08 | XMS_ITS | Clinical Summary ---
Author Organization [facility] Address [address] [place] [address] Phone Care Team Providers Care Geodetic Technician Name Role Phone Kizzy Lizarraga MD Primary Care Provider [phone] Allergies Active Allergy Reactions Criticality Noted Date Comments Codeine Rash,Nausea and/or Vomiting Low 06/26/20 18 Metformin Other (See Comments) 06/26/2018 Yeast infection Penicillins Rash Low 06/26/2018 Medications glipiZIDE (GLUCOTROL) 5 MG tablet Take 5 mg by mouth daily. Active cholecalciferol , vitamin D3, (VITAMIN D3 ORAL) Take by mouth. Active aspirin 81 MG EC tablet Take 81 mg by mouth daily. Active ibuprofen (ADVIL,MOTRIN) 800 MG tablet Take 800 mg by mouth as needed for pain (specific location in comments). Active Active Problems Problem Noted Date Diagnosed Date Diarrhea 06/26/2018 Social History Tobacco Use Types Packs/Day Years Used Date Smoking Tobacco: Former Cigarettes 1 968 - 1997 Smokeless Tobacco: Never Education Answer Date Recorded Are you interested in more education? Not on abdiel e 03/03/2023 Are you concerned about learning? Not on file 03/03/2023 No 03/03/2023 No 03/03/2023 Digital Access Answer Date Recorded No 04/01/2023 No 04/01/2023 No 04/01/2023 Reliable internet access at home? Not on file 04/01/2023 Device with a working camera? Not on file Comments Unknown Sex and Gender Information Value Date Recorded Sex Assigned at Not on file Legal Sex Female 9:51 PM EDT Gender Identity Not on file Sexual Orientation Not on file Last Filed Vital Signs Vital Sign Reading Time Taken Comments Blood Pressure 135/65 06/26/2018 9:29 AM EDT Pulse 72 06/26/2018 9:29 AM EDT Temperature 36.8 C (98.2 F) 06/26/2018 9:29 AM EDT Respiratory Rate - - Oxygen Saturation 97% 06/26/2018 9:29 AM EDT Inhaled Oxygen Concentration - - Weight 102.9 kg (226 lb 12.8 oz) 06/26/2018 9:29 AM EDT Height 162.6 cm (5' 4 ) 06/26/2018 9:29 AM EDT Body Mass Index 38.93 06/26/2018 9:29 AM EDT Plan of Treatment Health Maintenance Due Date Last Done Comments Adult Td,Tdap Booster 1958 LIPID PANEL 1958 DEPRESSION SCREENING 1970 SMOKING Hx and SMOKELESS TOBACCO SCREENING 1971 HEPATITIS C SCREENING 1976 MAMMOGRAM 1998 COLOGUARD 2003 COLONOSCOPY 2003 COLORECTAL CANCER SCREENING 2003 FIT TEST 2003 FOBT 2003 SIGMOIDOSCOPY 2003 VIRTUAL COLONOSCOPY 2003 PNEUMOCOCCAL VACCINES (50+ years) (1 of 1 - PCV) 2008 OSTEOPOROSIS SCREENING INITI AL (ONE-TIME) 2023 COVID-19 VACCINE (2 - 2023-2 5 season) 2024 01/14/2021 RSV VACCINE (1 - 1-dose 75+ series) 2033 ZOSTER VACCINES Completed 05/19/2020, 01/08/2020 HEPATITIS A VACCINES Aged Out No long er eligible based on patient's age to complete this topic HIB VACCINES Aged Out No longer eligi ble based on patient's age to complete this topic MENINGOCOCCAL VACCINES (ACWY) Aged Out No longer eligible based on patient's age to complete this topic MENINGOCOCCAL VACCINES (B) Aged Out N o longer eligible based on patient's age to complete this topic Medical Devices Not on file Insurance [facility] Care Teams Geodetic Technician Relationship Specialty Start Date End Date Kizzy Lizarraga MD [email or web address] PCP - General Family Medicine 06/21/18 Additional Source Comments The information contained in this document represents components of the legal health record. It is not the complete legal health record.[facility]
== END 2025-06-09 10:27 | disposition home or self-care (01) ==
LOC: HO.HMGCX 10:26
PROVIDERS: PCP Family Medicine; Visit Provider Urology
DX: N20.0 Calculus of kidney (principal)
CPT/HCPCS: 76775

== ENCOUNTER → 2025-06-09 10:38 | Outpatient (BNV) | payer BC, SELFPAY | PROVIDERS: PCP Family Medicine; Visit Provider Radiology Diagnostic Radiology | DX: N20.0 Calculus of kidney (principal) | CPT/HCPCS: 76775 ==

== ENCOUNTER 2025-06-13 10:30 | Outpatient (AMB) | payer BC, SELFPAY ==
--- NOTE | 2025-06-13 10:30 | MHC.OFFVIS ---
Intake Visit Reasons: follow up/US Intake Note: Patient is Present for Follow Up Urology Medication: NonE Antibiotic Allergies:Penicillins Blood Thinners: Eliquis RENAL ULTRASOUND DONE : 06/09/25 Beach Lifeguard Required: No Accompanied by: Self / Same As Patient Allergies Penicillins (PCN) Allergy (Intermediate, Verified 06/13/25 10:32) Hives citalopram Allergy (Verified 06/13/25 10:32) Vomiting, Tremors, increased anxiety. dulaglutide (From Trulicity) Allergy (Verified 06/13/25 10:32) Itching. lisinopril Allergy (Verified 06/13/25 10:32) Diarrhea semaglutide (From Rybelsus) Allergy (Verified 06/13/25 10:32) Low criticality: itching. codeine Adverse Reaction (Intermediate, Verified 06/13/25 10:32) Nausea metformin Adverse Reaction (Intermediate, Verified 06/13/25 10:32) caused UTI's HPI Comments Details: Antoinette is a pleasant female. She is a patient of Dr. Lizarraga. She is seen for following urologic conditions - proximal right ureteric stone No stone seen on follow-up Background diabetes places her at high risk for renal stones Continues vitamin B6 Encourage fluid intake target 80 oz 12 month follow-up - would follow for 5 years Nephrolithiasis Underwent stent placement December 2022 in [place] Had presented to hospital with urosepsis Completed procedure with stent removal Intervention - 03/28 ureteroscopy with laser lithotripsy and stent removal right side - 04/29 renal ultrasound no stones - 05/30 renal ultrasound no stones Therapeutic plan - encourage fluids - surveillance imaging [facility] Medical History (Updated 05/13/25 @ 09:57 by Shira Bahena NP) Hyperlipidemia Peripheral neuropathy Hypertension Restless legs syndrome (RLS) History of shingles GERD (gastroesophageal reflux disease) History of sepsis History of COVID-19 Nephrolithiasis History of cardioversion PAF (paroxysmal atrial fibrillation) Renal insufficiency Diabetes Surgical History H/O section History of cardiac cath H/O colonoscopy Hx of bilateral oophorectomy Hx of cystoscopy Family History Mother Muscular dystrophy Father Diabetes Heart disease Brother Diabetes Muscular dystrophy Paternal Aunt Afib Social History Household Members: Children Household Members Other:: Son Housing: Apartment Housing Other:: in 2 family house Are you a primary manager respiratory care to a significant other at home: No Do you presently have visiting nurse or other home services: No Alcohol intake: current Alcohol intake frequency: holidays/special occasions only Patient Tobacco Use Status: Former Tobacco user Tobacco use type: Cigarette Years Smoked: 20 +/- service: No Current occupational status: employed Review of Systems Const Denies chills and Denies fever(s) Card Reports no additional complaints and Denies syncope Resp Denies cough GI Denies abdominal pain and Denies heartburn Reports as per HPI and Denies change in libido Neuro Denies syncope Psych Denies change in libido Endo Denies change in libido Physical Exam Const General: cooperative, healthy appearing, comfortable and no acute distress Orientation/consciousness: patient oriented x3 HEENT Face and sinus: Yes normal facial exam Mouth: moist mucous membranes Neck Neck: Yes normal visual inspection, Yes full ROM and Yes trachea midline Chest Chest palpation & inspection: normal inspection of the chest Resp Effort & Inspection: normal respiratory effort, able to speak in complete sentences and no respiratory distress GI Inspection: Yes normal to inspection Back/Spine/Pelvis Cervical Spine: normal cervical lordosis Thoracic/Lumbar Spine: thoracic and lumbar spine normal to inspection Skin General skin exam: no rashes or lesions noted Neuro General: patient oriented x3, gait normal, tone normal and moves all extremities Extrem General: Yes normal to inspection and Yes capillary refill normal Assessment & Plan Assessment & Plan (1) Nephrolithiasis: Code(s): N20.0 - Calculus of kidney Category: Medical Plan Twelve month follow-up renal imaging Orders: Orders US renal BI 12 Months N20.0 - Calculus of kidney Patient Instructions: This note is constructed using voice recognition software. While every effort has been made to ensure accuracy telecommunication equipment repairer errors may have been included. Imaging studies, laboratory and physical exam results were discussed and reviewed in detail. No major barriers to patient understanding were identified. An opportunity to ask questions regarding the treatment plan was provided. All questions were answered. The patient expressed understanding and agreement with the above treatment plan. The patient is aware they should contact our office by phone for worsening of their current condition or the appearance of new urologic symptoms. Compliance is encouraged with any medications and followup testing that is ordered. It is a privilege to participate in the urologic care of your patient. If you have any questions or concerns regarding treatment for the above conditions, or other urologic issues, please do not hesitate to contact me. The office telephone contact is [phone]. Sincerely, Dr Wale Gabriel MD, [facility] - Urology Compassionate Specialist Care for the Genitourinary System Coding Level of Care Code Est Pt Level 4 (53701) Diagnoses Nephrolithiasis N20.0
--- OUTSIDE RECORDS SUMMARY | 2025-06-13 10:34 | XMS_ITS | Clinical Summary ---
Author Organization [facility] Address [address] [place] [address] Care Team Providers Care Welding Systems And Equipment Repairer Name Role Phone Pcp, No Primary Care [...] to complete this topic Insurance Care Teams Welding Systems And Equipment Repairer Relationship Specialty Start Date End Date Pcp, No PCP - General General Medicine 10/19/19
--- OUTSIDE RECORDS SUMMARY | 2025-06-13 10:34 | XMS_ITS | Clinical Summary ---
Author Organization [facility] Address [address] [place] [address] Phone Care Team Providers Care Nutritional Services Cook Name Role Phone Kizzy Lizarraga MD Primary Care Provider Allergies Active Allergy Reactions Criticality Noted Date [...] topic Medical Devices Not on file Insurance [employer] [facility] [facility] Care Teams Nutritional Services Cook Relationship Specialty Start Date End Date Kizzy Lizarraga MD [email or web address] PCP - General Family Medicine 06/21/18 Additional Source Comments The information contained in this document represents components of the legal health record. It is not the complete legal health record.[facility]
== END 2025-06-13 11:22 | disposition home or self-care (01) ==
LOC: HO.HUSH 10:30
PROVIDERS: PCP Family Medicine; Visit Provider Urology
DX: N20.0 Calculus of kidney (principal)
CPT/HCPCS: 99214

== ENCOUNTER 2025-07-22 09:52 | Outpatient (AMB) | payer BC, SELFPAY ==
--- NOTE | 2025-07-22 06:02 | A.OFFVIS_ITS ---
Vital Signs 07/22/25 09:55 Height 5 ft 4 in Weight 236 lb BMI 40.5 Pulse 92 Pulse Source Pulse Oximeter Pulse Oximetry (%) 96 Oxygen Delivery Method Room Air Intake Visit Reasons: Obstructive sleep apnea Guitar Instructor Required: No Brake Machine Operator: Brake Machine Operator offered & declined Accompanied by: Self / Same As Patient Allergies Penicillins (PCN) Allergy (Intermediate, Verified 07/22/25 10:00) Hives citalopram Allergy (Verified 07/22/25 10:00) Vomiting, Tremors, increased anxiety. dulaglutide (From Trulicity) Allergy (Verified 07/22/25 10:00) Itching. lisinopril Allergy (Verified 07/22/25 10:00) Diarrhea semaglutide (From Rybelsus) Allergy (Verified 07/22/25 10:00) Low criticality: itching. codeine Adverse Reaction (Intermediate, Verified 07/22/25 10:00) Nausea metformin Adverse Reaction (Intermediate, Verified 07/22/25 10:00) caused UTI's Medication List - Last Reconciled 07/22/25 by Fiorella Miller LPN apixaban (Eliquis) 5 mg PO BID bupropion HCl XL 300 mg PO DAILY duloxetine 60 mg PO DAILY gabapentin 1 - 3 caps PO BEDTIME PRN glipizide 1 - 2 tabs PO BIDAC insulin glargine (Lantus Solostar U-100 Insulin) INJECT 23 UNITS SUBCUTANEOUSLY ONCE DAILY INCREASE BY 3 UNITS EVERY 2 DAYS UNTIL MORNING SUGARS ARE LESS THAN 120 AND ABOVE 90 , MAX DAILY DOSE 80 UNITS lorazepam 0.5 mg PO DAILY PRN metoprolol succinate ER 200 mg PO BEDTIME rosuvastatin 10 mg PO DAILY tirzepatide (Mounjaro) mg subcut HPI HPI Obstructive sleep apnea: Details: Antoinetet is a pleasant 65 year old female, former 15 pack year smoker, quit 30 years ago with underlying severe SUMI AHI 30, DMII and atrial fibrillation s/p cardioversion 2022 maintained on Eliquis and metoprolol. She was initially referred by cardiology for management of SUMI after recent in lab study revealed severe SUMI, AHI 30 with moderate nocturnal hypoxemia. Given findings patient was started on CPAP therapy with pressure settings of 13 cmH20. RX [facility] to [facility] on [facility]/13 and unfortunately patient has yet to connect with [facility]. Per [facility] they have reached out on 3 occasions and sent a letter of notification however patient did not receive calls or letter. She was given phone number to contact [facility] to obtain CPAP therapy. At this time denies respiratory symptoms. [facility] Medical History (Updated 05/13/25 @ 09:57 by Shira Bahena NP) Hyperlipidemia Peripheral neuropathy Hypertension Restless legs syndrome (RLS) History of shingles GERD (gastroesophageal reflux disease) History of sepsis History of COVID-19 Nephrolithiasis History of cardioversion PAF (paroxysmal atrial fibrillation) Renal insufficiency Diabetes Surgical History H/O section History of cardiac cath H/O colonoscopy Hx of bilateral oophorectomy Hx of cystoscopy Family History Mother Muscular dystrophy Father Diabetes Heart disease Brother Diabetes Muscular dystrophy Paternal Aunt Afib Social History Household Members: Children Household Members Other:: Son Housing: Apartment Housing Other:: in 2 family house Are you a primary palliative care nurse practitioner to a significant other at home: No Do you presently have visiting nurse or other home services: No Alcohol intake: current Alcohol intake frequency: holidays/special occasions only Patient Tobacco Use Status: Former Tobacco user Tobacco use type: Cigarette Years Smoked: 20 +/- service: No Current occupational status: employed Review of Systems Const Denies chills, Denies excessive sweating, Denies fever(s), Denies headache(s) and Denies night sweats Eyes Denies dry eyes, Denies irritation and Denies itchy eyes ENT Reports Normal hearing present, Denies headache(s), Denies nasal congestion, Denies nasal discharge, Denies post nasal drip and Denies sore throat Card Denies chest pain, Denies chest pain at rest, Denies chest pain with activity, Denies claudication, Denies leg edema, Denies dyspnea, Denies dyspnea on exertion, Denies orthopnea and Denies paroxysmal nocturnal dyspnea Resp Denies chest congestion, Denies cough, Denies excessive phlegm production, Denies pain on inspiration, Denies pain with cough, Denies dyspnea, Denies dyspnea on exertion, Denies stridor and Denies wheezing Musc Denies myalgias Neuro Reports Normal hearing present and Denies headache(s) Endo Denies excessive sweating Sage/Lymph Denies lymphadenopathy Aller/Immun Denies itchy eyes, Denies seasonal rhinorrhea and Denies wheezing Physical Exam Vital Signs: Last Vital Signs Pulse 92 07/22/25 09:55 Pulse Ox 96 07/22/25 09:55 Oxygen Delivery Method Room Air 07/22/25 09:55 BMI result Body Mass Index 40.5 Const General: cooperative, healthy appearing, comfortable, no acute distress, well developed and alert Nutritional Appearance: obese Orientation/consciousness: patient oriented x3 Limitations: no limitations HEENT Head: Yes normal to inspection, Yes normocephalic and Yes atraumatic Ears: hearing grossly normal bilaterally and external ears normal Eyes General: appearance normal, both eyes and all related structures Eyelids: Yes eyelids normal Sclerae: sclerae normal EOM: EOMs intact bilaterally Neck Neck: Yes normal visual inspection and Yes no lymphadenopathy Lymphatic: no lymphadenopathy noted Chest Chest palpation & inspection: normal inspection of the chest Resp Effort & Inspection: normal respiratory effort, able to speak in complete sentences, no audible wheezes, no cough, no stridor, not tachypneic, no tripod positioning and no use of accessory muscles Auscultation: clear to auscultation bilaterally Cardio Jugular venous distension: no JVD Rate: regular rate Rhythm: regular rhythm Skin Other: warm, dry General skin exam: no rashes or lesions noted Neuro General: patient oriented x3 Cranial nerves: Yes Normal hearing present Cognition (Neuro): normal cognition Gait exam (Neuro): Normal gait present Extrem General: Yes normal to inspection, Yes capillary refill normal, Yes no clubbing, cyanosis or edema and Yes no pedal edema Psych Appearance: grossly normal and well kempt Speech and movement: Normal speech and movement present and Clear speech present Affect: normal affect Attitude: cooperative Thought process: Normal thought process present Thought content: Normal thought content present Insight: Good insight present (Psych) Judgement: Good judgement present (Psych) Assessment & Plan Assessment & Plan (1) Severe obstructive sleep apnea: Code(s): G47.33 - Obstructive sleep apnea (adult) (pediatric) Category: Medical (2) Nocturnal hypoxemia: Code(s): G47.34 - Idiopathic sleep related nonobstructive alveolar hypoventilation Category: Medical Plan Reviewed sleep study results with patient which revealed an AHI of 30 with moderate nocturnal hypoxemia, <88% 45 minutes. Prescription has been sent to a nd received by [facility] for CPAP therapy, awaiting contact from patient. She was given information during today's visit and agreeable to reach out so she can obtain CPAP. Once established on CPAP therapy, will send for overnight oximetry to ensure resolution of nocturnal hypoxemia with CPAP use. All questions were answered and patient is in agreement of plan. Will follow up in 10-12 weeks or sooner if needed. Coding Level of Care Code Est Pt Level 3 (42707) Diagnoses Severe obstructive sleep apnea G47.33 Nocturnal hypoxemia G47.34
[2025-07-22 09:55] VITALS: PULSE 92; O2SAT 96; BMI 40.5
--- OUTSIDE RECORDS SUMMARY | 2025-07-22 12:43 | XMS_ITS | Encounter Summary ---
Author Organization [facility] Address [address] [place] [id number] Phone Care Team Providers Care Visual Inspector Name Role Phone Kizzy Lizarraga MD Primary Care Provider [phone] Encounter Details Date Type Department Care Team (Late st Contact Info) Description 01/01/2025 Procedure Pass [facility] Echo [facility] [address] [place] [address] Social History Tobacco Use Types Packs/Day Years Used Date Smoking Tobacco: Former Cigarettes 1997 Smokeless Tobacco: Never Education Answer Date [...] on file Sexual Orientation Not on file documented as of this encounter Plan of Treatment Not on file documented as of this encounter Visit Diagnoses Not on filedocumented in this encounter Care Teams Visual Inspector Relationship Specialty Start Date End Date Kizzy Lizarraga MD PCP - General Family Medicine 06/21/18 documented as of this encounter Additional Source Comments The information contained in this document represents components of the legal health record. It is not the complete legal health record.[facility]
--- OUTSIDE RECORDS SUMMARY | 2025-07-22 12:43 | XMS_ITS | Clinical Summary ---
Author Organization [facility] Address [address] [place] [id number] Care Team Providers Care Bench Press Operator Name Role Phone Pcp, No Primary Care [...] Health Maintenance Due Date Last Done Comments Advance Care Planning 1960 Hepatitis C Virus Screening 1960 DTaP/Tdap/Td Vaccines (1 - Tdap) 1977 Mammogram 1998 Colonoscopy 2003 Pneumococcal Vaccines 50+ (1 of 1 - PCV) 2008 Zoster (Shingles) Vaccine (1 of 2) 2008 DXA Bone Density (Females,Ag es 65 and older) 2023 Influenza Vaccine 06/06/2025 COVID-19 Vaccine (1 - 2023-2 5 season) 2025 RSV Vaccine 60 years and old er and Patients (1 - 1-dose 75+ series) 2033 Hepatitis B Vaccines Aged Out No long er eligible based on patient's age to complete this topic Insurance Care Teams Bench Press Operator Relationship Specialty Start Date End Date Pcp, No PCP - General General Medicine 10/19/19
--- OUTSIDE RECORDS SUMMARY | 2025-07-22 12:43 | XMS_ITS | Encounter Summary ---
Author Organization [facility] Address [address] [address] [facility] [address] [place] [address] Phone Care Team Providers Care Materials Specialist Name Role Phone Kizzy Lizarraga MD Primary Care Provider [phone] Reason for Referral * Outpatient Procedure - Closed Specialty Diagnoses / Procedures Referred By Elia t Referred To Contact Radiology Diagnoses Cardiomyopathy, unspecified type Procedures Adult Echo TTE Kizzy Lizarraga MD [address] [place] [address] Phone: tel: fax: mailto: Referral ID Status Reason Start Date Expiration Date Visits Re quested Visits Authorized [id number] Closed 01/01/2025 01/01/2026 1 1 Encounter Details Date Type Department Care Team (Latest Contact Info) Description 01/01/2025 Transcribe Orders Virtual Department [address] [place] [address] Kizzy Lizarraga MD [address] [place] [address] [email or web address] Cardiomyopathy, unspecified type (Primary Dx) Social History Tobacco Use Types Packs/Day Years Used Date Smoking Tobacco: Former Cigarettes 1 8 - 1997 Smokeless Tobacco: Never Education Answer [...] on file documented as of this encounter Results * TTE COMPREHENSIVE (01/20/2025 8:40 AM EDT) Body Surface Area 2.06 m2 Height 163 cm Weight 103 kg Systolic BP 135 mmHg Diastolic BP 65 mmHg LVOT VTI REST 200.0 mm Left Ventricular Outflow Tract Velocity 0.9 m/s Left Ventricular Outflow Tract Gradient at Rest 3 mmHg Left Ventricle Ea Lateral Wave Speed 7.1 cm/s Left Ventricle Ea Septal Wave Speed 7.5 cm/s Aortic Valve Mean Gradient 5 mmHg Aortic Valve Time Velocity Integral 345.0 mm Aortic Valve Peak Velocity 1.5 m/s Aortic Valve Peak Gradient 9 mmHg Aortic Arch Diameter 22 mm Aortic Sinus Diameter 33 <40 mm Ascending Aorta Diameter 31 <36 mm Inferior Vena Cava Diameter 15 <21 mm Mitral Valve Area Pressure Half Time Eq 5,080.0 mm/s2 Mitral Valve Deceleration Time 202 ms MV stenosis pressure 1/2 time 59 ms Left Ventricle A Wave Speed 93.6 cm/s Left Ventricle E Wave Speed 102.0 cm/s Mitral Valve Mean Gradient 2 mmHg Mitral Valve Peak Gradient 4 mmHg Pulmonary Valve Peak Velocity 0.8 m/s Pulmonary Valve Peak Gradient 2 mmHg Right Ventricle Basal Diameter 32 25 - 41 mm MV E/E' Tissue Velocity Lateral 14.37 MV E/A ratio 1.1 MV E/e' septal 13.60 Left Ventricle E/e' Average 14.0 Aortic Valve Prosthetic Peak Gradient 9 mmHg Aortic Valve Prosthetic Mean Gradient 5 mmHg Aortic Valve Sinus Index by BSA 16 mm/m2 Aorta Sinus Index by Height 2.02 cm/m Aorta Sinus CSA index by Height 5.24 cm2/m Ascending Aorta Index 15 mm/m2 Asc Aorta CSA Index by Height 4.63 cm2/m Mitral Valve Prosthetic Peak Gradient 4 mmHg Mitral Valve Prosthetic Mean Gradient 2 mmHg MV valve area p 1/2 method 3.7 cm2 Mitral Valve Area DT Method 17.1 cm2 Pulmonic Valve Prosthetic Peak Gradient 2 mmHg Ascending Aorta Index 15 mm Aortic Sinus Index 16 mm Ascending Aorta Diameter 15 mm Aortic Valve Sinus Index 1 16 19 - 27 mm AO ASC DIAM BSA INDEX 15.05 Echo E/Ea 13.60 Left Atrial Volume Index 34 16 - 34 mL/m2 Ejection Fraction 61 50 - 75 % Right Ventricle TAPSE 21 >=17 mm Right Ventricle Pulse Doppler S Wave 9.9 >=9.5 cm/s Left Ventricle Diastolic Volume 62 46 - 106 mL Left Ventricle Diastolic Volume Index 30 29 - 61 mL/m2 Left Ventricle Systolic Volume 24 14 - 42 mL Left Ventricle Systolic Volume Index 12 8 - 24 mL/m2 Left Atrial Volume 70 mL Left Atrial Volume Index by Height 43 mL/m Right Atrium Area 15 cm2 Right Atrium Area index 7 cm2/m2 Anatomical Region Laterality Modality Heart Ultrasound Narrative 01/20/2025 11:39 AM EDT Technically limited study with suboptimal views. Parasternal views are very poor. Apical views look better. Grossly normal LV size and function EF 60 to 65%. Normal RV size and function. Trace mitral regurgitation. Borderline elevated E/E prime ratio which may suggest elevated left atrial pressure. Left atrial size looked mildly dilated. No cardiomyopathy was seen on this study. Left Ventricle The left ventricle is normal in size. There is normal left ventricular systolic function. The LV ejection fraction is 61% (calculated via biplane measurement). LV diastolic function parameters are indeterminate in total. The E/A ratio is 1.1. The e' septal wave velocity is 7.5 cm/s. The e' lateral wave velocity is 7.1 cm/s. The average E/e' ratio is 14.0. Right Ventricle The right ventricle is normal in size. There is normal right ventricular systolic function. TAPSE is 21 mm. RV S' wave is 9.9 cm/s. Left Atrium The left atrium is mildly dilated. The left atrial volume is 70 mL. The left atrial volume index by BSA is 34 mL/m2. There are normal flow patterns in the pulmonary vein. Right Atrium The right atrium is normal in size. The IVC is normal in size with normal inspiratory collapse. Mitral Valve There is no obvious structural abnormality. There is no mitral stenosis. There is trace mitral regurgitation. Tricuspid Valve There is no obvious structural abnormality. There is no tricuspid stenosis. There is trace tricuspid regurgitation. RV systolic pressure could not be estimated due to insufficient TR Doppler envelope. Aortic Valve There is no obvious structural abnormality. There is no aortic stenosis. There is no aortic regurgitation. The visualized portions of the thoracic aorta appear normal in size. The aortic sinus diameter is 33 mm. The ascending aortic diameter is 31 mm. Pulmonic Valve The pulmonic valve is suboptimally visualized. There is no pulmonic stenosis. Pericardium There is a trace pericardial effusion. General Findings The study was technically difficult (4). Poor parasternal window. Study quality explanation: body habitus. Technique(s) used in the evaluation: Color flow Doppler and Spectral Doppler. Consent was obtained from: patient The predominant rhythm during the study was sinus. Patient tolerated the procedure well. No complications observed during the procedure. Comparison Findings There are no prior [facility] studies for comparison. IAS/IVS There is no evidence of an atrial septal defect. There is no evidence of a ventricular septal defect. us Kizzy Lizarraga MD CV ECHO ORDERABLES Final Res ult documented in this encounter Visit Diagnoses Diagnosis Cardiomyopathy, unspecified type- Primary Cardiomyopathy, unspecified type documented in this encounter Care Teams Materials Specialist Relationship Specialty Start Date End Date Kizzy Lizarraga MD [email or web address] PCP - General Family Medicine 06/21/18 documented as of this encounter Additional Source Comments The information contained in this document represents components of the legal health record. It is not the complete legal health record.[facility]
--- OUTSIDE RECORDS SUMMARY | 2025-07-22 12:43 | XMS_ITS | Clinical Summary ---
Author Organization [facility] Address [address] [place] [address] Phone Care Team Providers Care Slunk Skin Curer Name Role Phone Kizzy Lizarraga MD Primary [...] 2008 OSTEOPOROSIS SCREENING INITI AL (ONE-TIME) 2023 INFLUENZA VACCINE (#1) 2025 COVID-19 VACCINE (2 - 2024-2 6 season) 2025 01/14/2021 RSV VACCINE (1 - 1-dose 75+ [...] topic Medical Devices Not on file Insurance [facility] [place] [place] [address] [facility] Care Teams Slunk Skin Curer Relationship Specialty Start Date End Date Kizzy Lizarraga MD [email or web address] PCP - General Family Medicine 06/21/18 Additional Source Comments The information contained in this document represents components of the legal health record. It is not the complete legal health record.[facility]
--- OUTSIDE RECORDS SUMMARY | 2025-07-22 12:43 | XMS_ITS | Encounter Summary ---
Author Organization [facility] Address [address] [place] [address] Phone Care Team Providers Care Engineering Program Analyst Name Role Phone Kizzy Lizarraga MD Primary Care Provider [phone] Encounter Details Date Type Department Care Team (Late st Contact Info) Description 10/22/2018 Procedure Pass [facility] Endoscopy Admitting Dept Virtual Department [address] [place] [address] Social History Tobacco Use Types Packs/Day Years Used Date Smoking Tobacco: Former Cigarettes 1997 Smokeless Tobacco: Never Comments Unknown Sex and Gender Information Value Date Recorded Sex Assigned at Not on file Legal Sex Female 9:51 PM EDT Gender Identity Not on file Sexual Orientation Not on file documented as of this encounter Plan of Treatment Not on file documented as of this encounter Visit Diagnoses Not on filedocumented in this encounter Care Teams Engineering Program Analyst Relationship Specialty Start Date End Date Kizzy Lizarraga MD [email or web address] PCP - General Family Medicine 06/21/18 documented as of this encounter Additional Source Comments The information contained in this document represents components of the legal health record. It is not the complete legal health record.[facility]
== END 2025-07-22 11:41 | disposition home or self-care (01) ==
PROVIDERS: PCP Family Medicine; Visit Provider Nurse Practitioner Family
DX: G47.33 Obstructive sleep apnea (adult) (pediatric) (principal); G47.34 Idiopathic sleep related nonobstructive alveolar hypoventilation
CPT/HCPCS: 99213